=== PATIENT | female | born 1955 | race Caucasian/White ===

== ENCOUNTER 2021-08-14 14:59 | Emergency (ER) | payer MEDICARE, SELFPAY ==
[2021-08-14 15:00] VITALS: BP 135/78; PULSE 69; RESP 16; TEMP 35.9; O2SAT 95; BMI 18.1
--- NOTE | 2021-08-14 15:41 | ED.VIS.GI ---
HPI HPI - GI History of Present Illness Chief Complaint: Foreign Body Informant: patient Abdominal Pain/Flank Pain Onset: Days (5) Context: Sudden Onset Timing: Continuous Quality: Dull Location: - (Throat) Worsened by: - (Swallowing) Relieved by: Nothing Nausea/Vomiting/Emesis GI Symptom: Negative for Nausea and Vomiting Diarrhea/Melena/Hematochezia GI Symptom: Negative for Diarrhea, Melena and Hematochezia Associated Symptoms Associated Symptoms: Negative for Dysuria, Frequency, Hematuria and Urgency Narrative Narrative: Patient presents with foreign body sensation in her throat that has been constant for the past 5 days. Patient thinks it is a fishbone. Patient states she was eating fish when she felt pain in her throat. Patient states she has been able to eat and drink since this happened. Patient denies any shortness of breath. Patient states her pain is worse with swallowing. Patient denies any nausea or vomiting. Patient denies any diarrhea, melena, or hematochezia. Patient denies any urinary complaints. Patient denies any chest pain. [facility] Medical History (Updated 08/14/21 @ 17:[address] Ronak Dobbs DO) GERD (gastroesophageal reflux disease) Medical History no medical history Home Medications lidocaine HCl [Lidocaine Viscous] 15 ml MUCOUS MEMBRANE Q6H PRN #100 ml 08/14/21 [Rx Last Taken Unknown] sucralfate [Carafate] 10 ml PO BID PRN #200 ml 08/14/21 [Rx Last Taken Unknown] Allergy/AdvReac Type Severity Reaction Status Date / Time No Known Allergies Allergy Verified 08/14/21 15:22 Social History Smoking Status: Unknown if ever smoked ROS ROS ED Constitutional Constitutional ED: Denies chills or fever(s) Eyes Eyes: Denies blurry vision or change in vision ENT ENT ED: Reports sore throat; Denies rhinorrhea Cardiovascular Cardiovascular: Denies chest pain or palpitations Respiratory/Chest Respiratory/Chest: Denies cough or dyspnea Gastrointestinal Gastrointestinal: Denies nausea or vomiting Genitourinary Genitourinary ED: Denies dysuria or hematuria Musculoskeletal Musculoskeletal: Reports neck pain; Denies back pain Integumentary Denies abscess or rash Neurologic Neurologic: Denies headache(s) or weakness Allergic/Immunologic Allergic/Immunologic ED: Denies mouth swelling or urticaria EXAM Physical Exam Const Vital Signs: 08/14/21 15:00 08/14/21 15:19 Temperature 96.6 F L Temperature Source Temporal Pulse Rate 69 Respiratory Rate 16 Respiratory Effort Normal Non-Labored Respiratory Pattern Normal Blood Pressure 135/78 H Blood Pressure Mean 97 Pulse Ox 95 Oxygen Delivery Method Room Air Positive well nourished and well developed General Appearance ED: well developed HEENT Reports moist mucous membranes HEENT Narrative: Oropharynx is clear. Airway is patent. I do not visualize any foreign bodies. Neck supple and no JVD Resp normal respiratory effort and clear to auscultation bilaterally Cardio regular rate, regular rhythm and no murmurs GI normal to inspection, nondistended, normoactive bowel sounds and non-tender Palpation: soft Extremity normal to inspection General Extremety ED: Negative for edema or tenderness General Extremity: Negative for edema Neuro oriented x3, CN's II-XII intact bilaterally and no sensory deficits noted Sensorium / Orientation: alert Motor Exam: strength 5/5 throughout Psych mental status grossly normal Skin no rashes or lesions noted MDM MDM MDM Narrative Medical decision making narrative: X-rays of the soft tissue neck were obtained. There are 2 views. On my interpretation, there is no foreign body. There is no perforation noted. There is no soft tissue swelling noted. Radiologist also interpreted the x-rays and agrees. Case was discussed with Dr. Mercado from gastroenterology. Since the patient is able to swallow foods and liquids, he does not feel she needs emergent endoscopy. He recommended giving the patient prescriptions for Carafate and viscous lidocaine. He recommended mixing these together and taking them every 6 hours as needed. He will follow-up with the patient as an outpatient. Patient was given his contact information to schedule outpatient follow-up. Patient was also instructed to follow-up with her primary care physician. Patient and family understood and were agreeable with the plan. All questions were answered. Radiography Diagnostic Testing: Clinical Impression(s) from Imaging Studies Soft Tissue Neck X-Ray 08/14/21 16:45 IMPRESSION: Unremarkable study. at 1700 Reported and signed by: Farrukh Mckeon MD Electronically Signed: Farrukh Mckeon MD at 16:59 EST Tel , Service support , Discharge Plan Triage Chief Complaint: Foreign Body ED Provider: Ronak Dobbs Dx/Rx/DC Orders Clinical Impression: Foreign body sensation in throat Instructions: ED Pharyngeal Abrasion Prescriptions: New lidocaine HCl [Lidocaine Viscous] 2 % solution 15 ml mucous membrane Q6H PRN (Reason: pain) Qty: 100 RF: 0 sucralfate [Carafate] 100 mg/mL suspension 10 ml PO BID PRN (Reason: Throat pain) Qty: 200 RF: 0 Primary Care Provider: Dashawn Weber Referrals: Friend,DO Levi [STAFF PHYSICIAN] - 3-5 Days Dashawn Weber [Primary Care Provider] - Activity Restrictions/Additional Instructions: You may mix the lidocaine with the Carafate and take twice daily. You may also use the lidocaine by itself in between doses of the Carafate every 6 hours Disposition Disposition: Home, Self Care
--- NOTE | 2021-08-14 16:45 | RAD_ITS ---
HISTORY: Foreign body sensation EXAMINATION/TECHNIQUE: XR Neck Soft Tissue: 2 views COMPARISON: None FINDINGS: SOFT TISSUES: Unremarkable. No radiopaque foreign body. EPIGLOTTIS: No pathologic thickening or enlargement. PROXIMAL AIRWAY: Grossly patent. RAD/Neck for Soft Tissue IMPRESSION: Unremarkable study. at 1700 Reported and signed by: Farrukh Mckeon MD Electronically Signed: Farrukh Mckeon MD at 16:59 EST Tel , Service support ,
[2021-08-14] MEDS: Mag Hydrox/Al Hydrox/Simeth 30 ML UDC PO (17:31)
== END 2021-08-14 17:33 | disposition home or self-care (01) ==
PROVIDERS: Emergency Provider Emergency Medicine; PCP Family Medicine; Visit Provider Emergency Medicine
DX: R09.89 Other specified symptoms and signs involving the circulatory and respiratory systems (principal); K21.9 Gastro-esophageal reflux disease without esophagitis
CPT/HCPCS: 70360; 99283

== ENCOUNTER 2022-11-12 11:46 | Emergency (ER) | payer MEDICARE, SELFPAY ==
[2022-11-12 12:03] VITALS: BP 116/69; PULSE 67; RESP 18; TEMP 36.3; O2SAT 94
[2022-11-12 12:35] LABS: Absolute Lymphocyte Count 0.41 X10^3/uL (0.83-4.51); Absolute Neutrophil Count 6.1 X10^3/uL (2.0-7.7); Basophil# 0.01 X10^3/uL; Basophil% 0.1 % (0-1); Hematocrit 42.5 % (37-47); Hemoglobin 14.1 g/dL (12.0-15.0); Lymphocyte # 0.41 X10^3/ul (0.83-4.51); Lymphocyte % 6.1 % (19-41); Mean Corp Hgb Conc 33.2 g/dL (32-36); Mean Corpuscular Hgb 31.2 pg (27.0-32.0); Mean Platelet Vol. 9.1 fl (6.2-12.0); Monocyte# 0.16 X10^3/uL; Monocyte% 2.4 % (0-10); NRBC Flagged by Analyzer 0 % (0-5); Neutrophil # 6.08 X10^3/uL (2.7-7.7); Neutrophil % 90.8 % (47-70); POSITIVE DIFFERENTIAL YES; Platelet Count 216 K/mm3 (150-450); RBC Distribution Width CV 13.3 % (11.6-14.6); RBC Distribution Width SD 46.1 fl (35.1-43.9); Red Blood Count 4.52 M/mm3 (4.2-5.4); White Blood Count 6.7 K/mm3 (4.4-11.0)
[2022-11-12 12:38] LABS: Differential Indicated SCAN CRITERIA MET
[2022-11-12 12:59] LABS: Differential Comment SCANNED
[2022-11-12 13:01] LABS: ALB/GLOB Ratio 1.3 RATIO (0.9-2.4); AST(SGOT) 24 U/L (15-37); Alanine Aminotransfer ALT/SGPT 26 U/L (13-56); Albumin, Serum 4.1 g/dL (3.2-5.0); Alkaline Phosphatase 71 U/L (45-117); Anion Gap 1 (5-15); BUN 16 mg/dL (7-18); Calcium,Total 9.3 mg/dL (8.5-10.1); Chloride 106 mmol/L (98-107); Creatinine, Serum 0.67 mg/dL (0.55-1.02); EST Glomerular Filtration Rate 94 mL/min (>60); Est Glom Filt Rate - Afr Amer 114 mL/min (>60); Globulin 3.1 g/dL (2.2-4.2); Glucose 138 mg/dL (74-106); Potassium 4.1 mmol/L (3.5-5.1); Protein, Total 7.2 g/dL (6.4-8.2); Sodium Level 137 mmol/L (136-145)
[2022-11-12 13:18] VITALS: BMI 16.6
--- NOTE | 2022-11-12 13:31 | CT_ITS ---
STUDY: CT ABDOMEN AND PELVIS WITH CONTRAST REASON FOR EXAM: Female, 67 years old. Abdominal pain with nausea and vomiting. RADIATION DOSAGE (If Supplied By Facility): CTDIvol = ( 8.93 ) mGy, DLP = ( 190.50 ) mGycm TECHNIQUE: Transaxial images were obtained from the dome of the diaphragm to the symphysis pubis without oral contrast. IV 100mL Isovue-300 was administered. Sagittal and coronal images were reconstructed. Individualized dose optimization techniques were used for this CT. COMPARISON: None. FINDINGS: The visualized lung bases are unremarkable. Levoscoliosis of the thoracic spine. The visualized portions of the heart are within normal limits. Normal liver. Questionable multiple tiny layering gallstones along the dependent portion of the gallbladder. There is an 8.4 mm x 8.2 mm cyst in the posterior superior aspect of the spleen. Normal pancreas. There is a small, circumscribed, smooth, low attenuation left adrenal mass, consistent with an adrenal adenoma. This measures 1 cm. Normal right adrenal gland. Normal right kidney. Normal left kidney. Normal visualized stomach. Normal small intestine. Normal colon. The appendix is visualized and appears normal. There is diffuse atherosclerotic calcification of the abdominal aorta, without a demonstrated aneurysm. Normal inferior vena cava. Normal retroperitoneum. Normal urinary bladder. Normal abdominal wall. There are diffuse degenerative changes of the visualized lumbar spine. Dextroscoliosis. CT/Abdomen/Pelvis W IV Cont ONLY IMPRESSION: Questionable tiny gallstones along the dependent portion of the gallbladder lumen. Small cyst is seen in the posterior superior aspect of the spleen. Levoscoliosis of the thoracic spine and dextroscoliosis of the lumbar spine. Electronically Signed: Reynold Weller MD at 14:29 EDT ,
--- NOTE | 2022-11-12 13:32 | EDS_ITS ---
HPI HPI - GI History of Present Illness Chief Complaint: Abd Pain Narrative Narrative: 67-year-old female past medical history of chronic abdominal pain. She states she has had problems with nausea and vomiting and abdominal pain for years. She saw a vice president network development remotely but states she never had a diagnosis. She presents because this morning she began having nausea and vomiting, but more dry heaving because she states that there was nothing in there. She denies any problems with bowel movements, no diarrhea or constipation. No fevers or chills. No hematemesis. She denies any dysuria or hematuria but states that she has pain diffusely throughout her abdomen and points to her cervical along her colon. She had called the squad today and she had received something for nausea which has improved her symptoms. She states there has been times where she stayed home with her abdominal pain and it resolved or she is come to the emergency department and did not have a formal diagnosis. [facility] Medical History GERD (gastroesophageal reflux disease) Home Medications lidocaine HCl 2 % mucosal solution (Lidocaine Viscous) 15 ml mucous membrane Q6H PRN pain #100 mL 08/14/21 [Rx Last Taken Unknown] sucralfate 100 mg/mL oral suspension (Carafate) 10 ml PO BID PRN Throat pain #200 mL 08/14/21 [Rx Last Taken Unknown] dicyclomine 20 mg tablet 20 mg PO TID PRN abdominal pain #21 tabs 11/12/22 [Rx Last Taken Unknown] ondansetron 4 mg disintegrating tablet 4 mg PO Q6H PRN nausea and vomiting #20 tabs 11/12/22 [Rx Last Taken Unknown] Allergy/AdvReac Type Severity Reaction Status Date / Time codeine AdvReac Nausea Verified 11/12/22 12:06 Social History Smoking Status: Unknown if ever smoked ROS ROS ED ROS Narrative Constitutional: No fever, no chills. HEENT: No sore throat. No neck pain. No loss of vision. No rhinorrhea. Cardiovascular: No chest pain. No palpitations. No pedal edema. Respiratory: No cough, no shortness of breath. Abdominal: Diffuse abdominal pain. Positive nausea and vomiting/dry heaves Genitourinary: No dysuria. No hematuria. Musculoskeletal: No myalgias. No arthralgias. Neurologic: No headaches. No dizziness. No lightheadedness. Skin: No rash. No change in color. Psychiatric: No depression. No anxiety. EXAM Physical Exam Narrative Exam Narrative: Afebrile. Vital signs noted. HEENT: Normocephalic. Atraumatic. PERRL, EOMI. Neck soft and supple. No point tenderness or step off. Cardiovascular: Regular rate and rhythm. No murmurs, rubs, or gallops appreciated. Respiratory: No tachypnea. Lungs clear to auscultation bilaterally. Gastrointestinal: Abdomen soft, minimal diffuse tenderness to palpation with normoactive bowel sounds. No rebound or guarding. Neurological: Awake. Alert. Nonfocal, nonlateralizing. Skin: No rash. Normal color. No pallor. Musculoskeletal: No pedal edema. Full range of motion extremities. Const Vital Signs: 11/12/22 12:03 Temperature 97.3 F L Temperature Source Temporal Pulse Rate 67 Respiratory Rate 18 Blood Pressure 116/69 Blood Pressure Mean 84 Pulse Ox 94 MDM MDM MDM Narrative Medical decision making narrative: In the differential diagnosis is bowel obstruction versus nonspecific abdominal pain versus exacerbation of chronic abdominal pain versus pancreatitis. I have lower suspicion for obstruction or colitis as she is not having any problems with bowel movements. RN ordered protocol laboratory work which I reviewed. CBC shows normal white count of 6.7, hemoglobin normal at 14.1, hematocrit 42.5, platelet count normal at 216. In review of her CMP, she has normal AST and ALT and normal alk phos, glucose appropriately elevated at 138 with a normal anion gap/low at 1. There is no evidence of dehydration as she has a normal sodium of 137, potassium normal at 4.1, chloride normal at 106. BUN is normal at 16 with creatinine normal at 0.67. I will add a lipase and review it. I will image her abdomen with CT imaging to rule out obstruction or colitis. She declined any antinausea medication. In review of her lipase, it is normal at 41. I reviewed her prior records and she had a prior ED visit for foreign body sensation, but no significant work-ups for her abdominal pain. I reviewed her CT imaging and see no evidence of obstruction. I reviewed the radiology report which was also read as no acute process. She may have tiny gallstones in the lumen of the gallbladder, but no evidence of obstruction on her laboratory work. I do not feel that she has an acute cholecystitis, or choledocholithiasis causing pancreatitis. At this point in time, she may be having more nonspecific abdominal pain. I will write her prescription for Bentyl to take and for antinausea medication. I will refer her to gastroenterology for further work-up of her chronic abdominal pain that she may have irritable bowel syndrome. At this point in time, I do feel she can be discharged safely home with follow-up. Return instructions to the emergency department were reviewed. Disposition is discharged home in stable condition. History & Record Review Discussion w/independent historian: Patient and Family Additional record(s) reviewed:: Prior ED visit (Seen infrequently, last time for foreign body sensation in throat.) Lab Data Attestation: I reviewed the patient's lab results. Labs: Laboratory Results - last 24 hr 11/12/22 11/12/22 11/12/22 12:30 12:30 12:30 WBC 6.7 RBC 4.52 Hgb 14.1 Hct 42.5 MCV 94.0 MCH 31.2 MCHC 33.2 RDW Std Deviation 46.1 H RDW Coeff of Boaz 13.3 Plt Count 216 MPV 9.1 Immature Gran % (Auto) 0.600 Neut % (Auto) 90.8 H Lymph % (Auto) 6.1 L [place] % (Auto) 2.4 Eos % (Auto) 0.0 Baso % (Auto) 0.1 Absolute Neuts (auto) 6.1 Absolute Lymphs (auto) 0.41 L Nucleated RBC % 0 Differential Comment SCANNED Sodium 137 Potassium 4.1 Chloride 106 Carbon Dioxide 30.0 Anion Gap 1 L BUN 16 Creatinine 0.67 Est GFR (MDRD) Af Amer 114 Est GFR (MDRD) Non-Af 94 BUN/Creatinine Ratio 24.0 H Glucose 138 H Calcium 9.3 Total Bilirubin 1.10 H AST 24 ALT 26 Alkaline Phosphatase 71 Total Protein 7.2 Albumin 4.1 Globulin 3.1 Albumin/Globulin Ratio 1.3 Lipase 41 Urine Color Urine Clarity Urine pH Ur Specific [place] Urine Protein Urine Glucose (UA) Urine Ketones Urine Occult Blood Urine Nitrite Urine Bilirubin Urine Urobilinogen Ur Leukocyte Esterase Urine RBC Urine WBC Ur Squamous Epith Cells Urine Bacteria Urine Mucus 11/12/22 13:45 WBC RBC Hgb Hct MCV MCH MCHC RDW Std Deviation RDW Coeff of Boaz Plt Count MPV Immature Gran % (Auto) Neut % (Auto) Lymph % (Auto) [place] % (Auto) Eos % (Auto) Baso % (Auto) Absolute Neuts (auto) Absolute Lymphs (auto) Nucleated RBC % Differential Comment Sodium Potassium Chloride Carbon Dioxide Anion Gap BUN Creatinine Est GFR (MDRD) Af Amer Est GFR (MDRD) Non-Af BUN/Creatinine Ratio Glucose Calcium Total Bilirubin AST ALT Alkaline Phosphatase Total Protein Albumin Globulin Albumin/Globulin Ratio Lipase Urine Color Yellow Urine Clarity Clear Urine pH 6.5 Ur Specific [place] 1.015 Urine Protein 30 H Urine Glucose (UA) 50 H Urine Ketones 50 H Urine Occult Blood 50 H Urine Nitrite Negative Urine Bilirubin Negative Urine Urobilinogen Normal Ur Leukocyte Esterase Negative Urine RBC 0-5 SEEN Urine WBC 0 SEEN Ur Squamous Epith Cells 0 SEEN Urine Bacteria 0 SEEN Urine Mucus 0 SEEN Radiography Diagnostic Testing: Clinical Impression(s) from Imaging Studies Abdomen/Pelvis CT 11/12/22 13:31 IMPRESSION: Questionable tiny gallstones along the dependent portion of the gallbladder lumen. Small cyst is seen in the posterior superior aspect of the spleen. Levoscoliosis of the thoracic spine and dextroscoliosis of the lumbar spine. Electronically Signed: Reynold Weller MD at 14:29 EDT , Discharge Plan Triage Chief Complaint: Abd Pain ED Provider: Pradip Tobar Dx/Rx/DC Orders Clinical Impression: Abdominal pain, Nausea and vomiting Instructions: ED Abdominal Pain Unkn Cause Fem, ED Vomiting (Adult) Prescriptions: New dicyclomine 20 mg tablet 20 mg PO TID PRN (Reason: abdominal pain) Qty: 21 0RF ondansetron 4 mg tablet,disintegrating 4 mg PO Q6H PRN (Reason: nausea and vomiting) Qty: 20 0RF No Action lidocaine HCl [Lidocaine Viscous] 2 % solution 15 ml mucous membrane Q6H PRN (Reason: pain) Qty: 100 0RF sucralfate [Carafate] 100 mg/mL suspension 10 ml PO BID PRN (Reason: Throat pain) Qty: 200 0RF Primary Care Provider: Dashawn Weber Referrals: Friend,Levi, DO [Med Staff - Active Staff] - As soon as possible Dashawn Weber [[facility]] - As soon as possible Activity Restrictions/Additional Instructions: You had negative work-up for your abdominal pain, nausea and vomiting today. Take the medications prescribed as directed as needed. Follow-up with [facility] as soon as possible. Disposition Disposition: Home, Self Care
[2022-11-12] MEDS: 0.9% Normal Saline 1,000 ML 999 ML IV (13:44)
[2022-11-12 13:49] LABS: Bacteria 0 SEEN /hpf (None Seen); Mucous, Urine 0 SEEN /hpf (<or=2+); Squamous Epithelial Cells - UA 0 SEEN /hpf (5-10); White Blood Cells 0 SEEN /hpf (0-5)
[2022-11-12 13:50] LABS: Color, Urine Yellow (Yellow); Glucose, Dipstick 50 mg/dl (Normal); Ketone-Dipstick 50 mg/dl (Negative); Leukocyte Esterase-Dipstick Negative /ul (Negative); Nitrite-Dipstick Negative (Negative); Occult Blood-Urine 50 /ul (Negative); Protein-Dipstick 30 mg/dl (Negative); Specific Gravity, Urine 1.015 (1.002-1.030); Urine Bilirubin Dipstick Negative (Negative); Urine Clarity Clear (Clear); Urine Urobilinogen Normal (Normal); Urine pH 6.5 (5.0 - 8.0)
[2022-11-12 13:56] LABS: Red Blood Cells-Urine 0-5 SEEN /hpf (0-5)
[2022-11-12 14:17] LABS: Lipase 41 U/L (13-75)
== END 2022-11-12 15:02 | disposition home or self-care (01) ==
PROVIDERS: Emergency Provider Emergency Medicine; PCP Family Medicine; Visit Provider Emergency Medicine
DX: R10.9 Unspecified abdominal pain (principal); G89.29 Other chronic pain; R11.2 Nausea with vomiting, unspecified
CPT/HCPCS: 74177; 80053; 81001; 83690; 85025; 96360; 99285; J7030; Q9967

== ENCOUNTER → 2022-12-11 | Outpatient (CLI) | payer MEDICARE, SELFPAY ==
[2022-12-11 12:33] LABS: Erythrocyte Sedimentation Rate 4 mm/hr (0-30)
[2022-12-11 12:40] LABS: Absolute Lymphocyte Count 1.88 X10^3/uL (0.83-4.51); Absolute Neutrophil Count 2.8 X10^3/uL (2.0-7.7); Basophil# 0.02 X10^3/uL; Basophil% 0.4 % (0-1); Eosinophil# 0.05 X10^3/uL; Hematocrit 41.1 % (37-47); Hemoglobin 13.4 g/dL (12.0-15.0); Lymphocyte # 1.88 X10^3/ul (0.83-4.51); Lymphocyte % 36.5 % (19-41); Mean Corp Hgb Conc 32.6 g/dL (32-36); Mean Corpuscular Hgb 31.7 pg (27.0-32.0); Mean Corpuscular Volume 97.2 fL (81-99); Mean Platelet Vol. 9.7 fl (6.2-12.0); Monocyte# 0.42 X10^3/uL; Monocyte% 8.2 % (0-10); NRBC Flagged by Analyzer 0 % (0-5); Neutrophil # 2.77 X10^3/uL (2.7-7.7); Neutrophil % 53.7 % (47-70); Platelet Count 221 K/mm3 (150-450); RBC Distribution Width CV 13.8 % (11.6-14.6); Red Blood Count 4.23 M/mm3 (4.2-5.4); White Blood Count 5.2 K/mm3 (4.4-11.0)
[2022-12-11 13:11] LABS: ALB/GLOB Ratio 1.2 RATIO (0.9-2.4); AST(SGOT) 23 U/L (15-37); Alanine Aminotransfer ALT/SGPT 26 U/L (13-56); Alkaline Phosphatase 68 U/L (45-117); Anion Gap 3 (5-15); BUN 14 mg/dL (7-18); BUN/Creat Ratio 18.3 RATIO (10-20); Bilirubin, Direct 0.23 mg/dL (0.00-0.30); CRP < 2.90 mg/L (0.0-3.0); Calcium,Total 8.8 mg/dL (8.5-10.1); Chloride 108 mmol/L (98-107); Creatinine, Serum 0.77 mg/dL (0.55-1.02); EST Glomerular Filtration Rate 80 mL/min (>60); Est Glom Filt Rate - Afr Amer 97 mL/min (>60); Globulin 3.3 g/dL (2.2-4.2); Glucose 69 mg/dL (74-106); LDH 147 U/L (84-246); Potassium 3.8 mmol/L (3.5-5.1); Protein, Total 7.3 g/dL (6.4-8.2); Sodium Level 140 mmol/L (136-145)
[2022-12-12 15:09] LABS: Anti-Centromere B Ab <0.2 AI (0.0-0.9); Anti-Chromatin <0.2 AI (0.0-0.9); Anti-Jo <0.2 AI (0.0-0.9); Anti-Mitochondrial AB <20.0 Units (0.0-20.0); Anti-Scleroderma-70 AB <0.2 AI (0.0-0.9); Anti-dsDNA Ab <1 IU/mL (0-9); RNP Ab 1.3 AI (0.0-0.9); SJOGREN'S Anti-SS-A test < 0.2 AI (0.0-0.9); SJOGREN'S Anti-SS-B test < 0.2 AI (0.0-0.9); Smith Ab <0.2 AI (0.0-0.9)
[2022-12-12 16:09] LABS: Anti-Smooth Muscle ABS 5 Units (0-19); Cytoplasmic Ab (C-ANCA) <1:20 titer (Neg:<1:20); Endomysial Antibody IgA Negative (Negative); Immunoglobulin A 85 mg/dL (87-352); Perinuclear Ab (P-ANCA) <1:20 titer (Neg:<1:20); t-Transglutaminase IgA <2 U/mL (0-3)
== END | disposition home or self-care (01) ==
LOC: LAB 11:33
PROVIDERS: PCP Family Medicine; Referring Provider Nurse Practitioner Adult Health; Visit Provider Nurse Practitioner Adult Health
DX: R10.10 Upper abdominal pain, unspecified (principal); R63.4 Abnormal weight loss; R19.7 Diarrhea, unspecified
CPT/HCPCS: 36415; 80053; 82248; 82784; 83516; 83615; 84443; 85025; 85652; 86140; 86225; 86235; 86255; 86256

== ENCOUNTER → 2022-12-19 | Outpatient (CLI) | payer MEDICARE, SELFPAY ==
--- NOTE | 2022-12-19 08:58 | US_ITS ---
STUDY: ABDOMINAL ULTRASOUND - RIGHT UPPER QUADRANT REASON FOR VISIT: Female, 67 years old upper abd pain -- RUQ TECHNIQUE: Ultrasound evaluation of the right upper quadrant was performed with real-time and static paulino-scale imaging. TECHNICAL QUALITY: Adequate. COMPARISON: None. FINDINGS: Liver: The liver measures 14.9 cm. There is normal echogenicity of the liver. The bile ducts are within normal limits. There is hepatic color flow. The direction of portal flow is hepatopetal. There is no demonstrated mass lesion. Gallbladder: Normal distended gallbladder. The gallbladder wall measures 2 mm. There is a negative sonographic Talavera''s sign. There is no pericholecystic fluid. There are no gallstones. Common Bile Duct (C.B.D.): The common bile duct measures 2 mm. Pancreas: Normal size of the head, body and tail of the pancreas. There is normal echogenicity of the pancreas. There is no demonstrated pancreatic mass or cyst. Right Kidney: Normal size of the right kidney. The right kidney measures [0.6 x 4.3 x 3.6 cm. Normal renal cortex. The right cortex measures 1 cm. There is no demonstrated renal mass or cyst. There is no right hydronephrosis. US/Abdomen Limited IMPRESSION: Normal right upper quadrant ultrasound examination. Electronically Signed: Hans Staton MD at 20:51 EDT ,
[2022-12-24 15:08] LABS: Pancreatic Elastase, Fecal 144 (>200)
[2022-12-25 02:07] LABS: IgG, Quant 961 mg/dL (586-1602); Immunoglobulin A 79 mg/dL (87-352); Immunoglobulin E 5 IU/mL (6-495); Immunoglobulin G, Subclass 1 663 mg/dL (248-810); Immunoglobulin G, Subclass 2 156 mg/dL (130-555); Immunoglobulin G, Subclass 3 59 mg/dL (15-102); Immunoglobulin G, Subclass 4 1 mg/dL (2-96); Immunoglobulin M 157 mg/dL (26-217)
[2022-12-25 18:14] LABS: Immunoglobulin G 961
[2023-01-02 16:09] LABS: Calprotectin, Stool 9 ug/g (0-120); Fats, Neutral Normal (.); Fats, Total Normal (.)
== END | disposition home or self-care (01) ==
PROVIDERS: PCP Family Medicine; Referring Provider Nurse Practitioner Adult Health; Visit Provider Nurse Practitioner Adult Health
DX: R19.7 Diarrhea, unspecified (principal); R63.4 Abnormal weight loss; R10.10 Upper abdominal pain, unspecified; K58.9 Irritable bowel syndrome, unspecified
CPT/HCPCS: 36415; 76705; 82653; 82705; 82784; 82785; 82787; 83516; 83630; 83993

== ENCOUNTER 2023-01-30 06:32 | Day surgery (SDC) | payer MEDICARE, SELFPAY ==
[2023-01-30] VITALS (7 sets, daily range): BP systolic 95–127; BP diastolic 65–101; PULSE 64–88; RESP 16–18; TEMP 36.2–36.8; O2SAT 98–100; BMI 16.5
--- NOTE | 2023-01-30 | COLBX_PTH ---
PATIENT: JASON FIELDS LOC: [facility] U#:[id number] AGE/SX: 67/F ROOM: RE01/30/[address]: Dr. Levi Mercado DO : [id number] BED: DIS: 01/30/2023 SPEC #: [id number] RECD: 01/30/23 13:14 STATUS: WISAM RUTH #: [id number] AMANDA: 01/30/23 00:[address]: Levi Mercado DEPT: SURGICAL PATHOLOGY RECD BY: Francis Carpenter ENTERED: 01/30/23 14:10 SP TYPE: COLON BX OTHR DR: Dr. Dashawn Weber MD Tissues: A - Duodenum, NOS B - Esophagus, NOS C - COLON BIOPSY D - Cecum, NOS E - Ascending colon F - COLON BIOPSY G - Sigmoid colon biopsy Procedures: Special Stain Group II Surgery Specimen Level IV Alcian Blue/PAS (control) HEADER OPERATION: Colonoscopy, EGD ([facility] [place]) PRE-OP DIAGNOSIS: Abdominal pain TISSUE SUBMITTED: A - Duodenum biopsy, B - Distal esophagus biopsy, C - Hepatic flexure polyp biopsy, D - Cecum biopsy, E - Ascending colon polyp biopsy, F - Random colon biopsy, G - Sigmoid colon polyp biopsy MICROSCOPIC DIAGNOSIS A. Duodenum, biopsy: No pathologic change. B. Distal esophagus, biopsy: Gastroesophageal junctional mucosa with mild chronic inflammation. No evidence of goblet cell metaplasia. See comment. C. Colonic polyp at hepatic flexure, biopsy: Tubular adenoma. D. Cecum, biopsy: No pathologic change. E. Ascending colon polyp, biopsy: Fragments of tubular adenoma. F. Colon, random biopsy: No pathologic change. G. Sigmoid colon polyp, biopsy: Polypoid fragment of benign colonic mucosa. See comment. AM:caleb 01/31/2023 COMMENT B. Alcian blue/PAS stain with matched control supports the above diagnosis. G. Neither hyperplastic nor adenomatous change is identified. Clinical correlation is suggested. MICROSCOPIC DESCRIPTION Slides are reviewed. GROSS DESCRIPTION A - Received in fixative is one container labeled with the patient's name and designated duodenum biopsy. The specimen consists of two irregular fragments of light cohen soft tissue that in aggregate measure 1.0 x 0.5 x 0.1 cm. The specimen is totally submitted in one cassette. B - Received in fixative is one container labeled with the patient's name and designated distal esophagus. The specimen consists of two irregular fragments of light cohen soft tissue that in aggregate measure 0.6 x 0.3 x 0.1 cm. The specimen is totally submitted in one cassette. C - Received in fixative is one container labeled with the patient's name and designated hepatic flexure polyp biopsy. The specimen consists of one irregular fragment of light cohen soft tissue that measures 0.4 x 0.3 x 0.1 cm. The specimen is totally submitted in one cassette. D - Received in fixative is one container labeled with the patient's name and designated cecum biopsy. The specimen consists of two irregular fragments of light cohen soft tissue that in aggregate measure 0.6 x 0.3 x 0.1 cm. The specimen is totally submitted in one cassette. E - Received in fixative is one container labeled with the patient's name and designated ascending colon polyp biopsy. The specimen consists of multiple irregular fragments of light cohen soft tissue that in aggregate measure 1.5 x 0.5 x 0.1 cm. The specimen is totally submitted in one cassette. F - Received in fixative is one container labeled with the patient's name and designated random colon biopsy. The specimen consists of multiple irregular fragments of light cohen soft tissue that in aggregate measure 1.0 x 0.7 x 0.1 cm. The specimen is totally submitted in one cassette. G - Received in fixative is one container labeled with the patient's name and designated sigmoid colon polyp biopsy. The specimen consists of one irregular fragment of light cohen soft tissue that measures 0.4 x 0.1 x 0.1 cm. The specimen is totally submitted in one cassette. / SJ:rg 01/30/2023 TC:3 CPT: 54578 x7, [id number]
[2023-01-30] MEDS: Lactated Ringers 1,000 ML 15 ML IV (07:13)
--- NOTE | 2023-01-30 07:37 | HP.PCM_ITS ---
History and Physical Date of Admission: 01/30/23 abdominal pain Details: JASON FIELDS, is a 67 F who presents to the office today for sporadic episodes of upper abdominal/periumbilical pain since 2002. Has occurred twice this year. Can last a few hours or a day. Most recent episode was 11/12/22, brought by squad to [facility] ED. Lipase was normal, bili 1.10 otherwise unremarkable CMP, CBC unremarkable, CT showed tiny gallstones. Can have associated nausea and vomiting, pain doesn't radiate. Has been to ED several times over the years. Can be better with heating pad. Intermittent urgent diarrhea, not assoc with the abd pain, thinks once or twice this year. Diarrhea lasted for a month in 04/2022. Currently having soft stools. No melena or hematochezia. Hasn't taken pantoprazole since ED visit, no heartburn. Has only taken ibuprofen twice since then. Can have difficulty swallowing certain foods, especially apples, melon, carrots. Unexplained weight loss over the past 4 yrs, BMI is now 16.5. She attributes the weight loss to several things: decreased sense of taste and smell, poor dentition so she had teeth pulled and had to get used to dentures, and her is approx 400 lbs so she wonders if psychologically this has caused her to eat less as he eats more. No prior EGD that she recalls Hx colon polyps, last colonoscopy approx 202011/12/22 CT/Abdomen/Pelvis W IV Cont ONLY IMPRESSION: Questionable tiny gallstones along the dependent portion of the gallbladder lumen. Small cyst is seen in the posterior superior aspect of the spleen. Levoscoliosis of the thoracic spine and dextroscoliosis of the lumbar spine. ROS Const Constitutional: Positive for headache(s) and weight change; No fatigue ENT ENT: Positive for headache(s); No difficulty swallowing Gastro GI: No abdominal pain, belching, bloating, change in bowel habits, change in stool character, coffee ground emesis, constipation, cramping, diarrhea, heartburn, difficulty swallowing, feeling full early, excessive flatus, incontinent of stools, Vomiting blood/hematemesis, Blood in stool, loose stools, Black,tarry stools, nausea/dyspepsia, pain with swallowing, vomiting or other Musc Musculoskeletal: Positive for back pain; No joint pain Skin Skin: No yellowing of the eye or itchy eyes Neuro Neurology: Positive for headache(s) Psych Psychiatric: No anxiety and No depression Endo Endocrine: Positive for weight change; No fatigue Aller/Imm Allergy/Immunologic: No itchy eyes Cody/Lymp Hematologic/Lymphatic: No easy bleeding or easy bruising Exam Const General: cooperative and comfortable Nutritional Appearance: thin Orientation: alert, awake and oriented x3 HENMT Head: normal to inspection Eyes Sclera: sclerae normal Resp Effort & Inspection: normal respiratory effort GI Inspection: normal to inspection Palpation: soft, no hepatosplenomegaly, no masses and tender in the epigastrum and in the LUQ General: bladder normal to palpation Bimanual Exam- Vagina & Uterus: bladder normal to palpation Skin General: no rashes or lesions noted Neuro Speech: speech normal Gait: normal gait Psych Mood: euthymic mood Quality Reporting Tobacco Screening ([facility] 138) Smoking Status: Unknown if ever smoked Assessment and Plan Assessment and Plan (1) Upper abdominal pain: Status: Chronic Plan: 67 yr old female with 20-yr-hx of episodes of upper abd/periumbilical pain, assoc w/ nausea and vomiting. She has unrelated occas diarrhea, not frequent. As well as unexplained weight loss, now underweight. Slightly elevated bilirubin--may be Gilbert's--during last episode but normal liver enzymes and lipase. CT showed possible tiny gallstones. DDx includes transient obstructive choledocholithiasis, biliary dyskinesia, pancreatitis, SOD Labs today RUQ US, may need HIDA EGD w/ office f/u 2 wks later (2) Unexplained weight loss: Status: Chronic Plan: as above (3) Diarrhea: Status: Acute Plan: as above Orders: Orders Bilirubin, Direct Today R10.10 - Upper abdominal pain, unspecified, R19.7 - Diarrhea, unspecified, R63.4 - Abnormal weight loss Comprehensive Metabolic Profil Today R10.10 - Upper abdominal pain, unspecified, R19.7 - Diarrhea, unspecified, R63.4 - Abnormal weight loss CRP Today R10.10 - Upper abdominal pain, unspecified, R19.7 - Diarrhea, unspeci fied, R63.4 - Abnormal weight loss Erythrocyte Sed Rate Today R10.10 - Upper abdominal pain, unspecified, R19.7 - Diarrhea, unspecified, R63.4 - Abnormal weight loss Anti-Mitochondrial AB Today R10.10 - Upper abdominal pain, unspecified, R19.7 - Diarrhea, unspecified, R63.4 - Abnormal weight loss Anti-Smooth Muscle ABS Today R10.10 - Upper abdominal pain, unspecified, R19.7 - Diarrhea, unspecified, R63.4 - Abnormal weight loss CBC W/Diff, Automated Today R10.10 - Upper abdominal pain, unspecified, R19.7 - Diarrhea, unspecified, R63.4 - Abnormal weight loss LDH Today R10.10 - Upper abdominal pain, unspecified, R19.7 - Diarrhea, unspecified, R63.4 - Abnormal weight loss MILLIE Comprehensive Panel Today R10.10 - Upper abdominal pain, unspecified, R19.7 - Diarrhea, unspecified, R63.4 - Abnormal weight loss ANCA Today R10.10 - Upper abdominal pain, unspecified, R19.7 - Diarrhea, unspecified, R63.4 - Abnormal weight loss Celiac Disease Profile Today R10.10 - Upper abdominal pain, unspecified, R19.7 - Diarrhea, unspecified, R63.4 - Abnormal weight loss Abdomen Limited Today R10.10 - Upper abdominal pain, unspecified, R19.7 - Diarrhea, unspecified, R63.4 - Abnormal weight loss Thyroid Stim Hormone (TSH) Today R10.10 - Upper abdominal pain, unspecified, R19.7 - Diarrhea, unspecified, R63.4 - Abnormal weight loss I have examined the patient and the H&P has been reviewed. There are no clinical changes since date of exam.
--- NOTE | 2023-01-30 08:24 | OP.CCLET_ITS ---
01/30/2023 Dashawn Weber Md Re : Upper GI endoscopy procedure for Claribel Palumbor Gus This procedure was performed on January. My impressions and recommendations are as follows: Impressions : - LA Grade A reflux esophagitis. Biopsied. - Small hiatal hernia. - Chronic duodenitis. Biopsied. Recommendations : - Discharge patient to home. - Resume previous diet. - Continue present medications. - Await pathology results. My findings are described in the full procedure note, which is enclosed. If I can be of further assistance, please feel free to contact me at . Sincerely, Levi Mercado, 01/30/2023 8:23:39 AM This report has been signed electronically.
--- NOTE | 2023-01-30 08:24 | OP.EGD_ITS ---
Patient Name: Claribel Lomeli Procedure Date: 01/30/2023 7:38 AM Date of : 1955 Age: 67 Procedure: Upper GI endoscopy Indications: Generalized abdominal pain Providers: Levi Mercado DO Referring MD: Levi Mercado DO Medicines: Monitored Anesthesia Care Patient Profile: This is a 67 year old female. Refer to note in patient chart for documentation of history and physical. Patient has symptoms of chronic abdominal cramping, chronic abdominal distention and chronic global abdominal pain. Complications: No immediate complications. Procedure: Pre-Anesthesia Assessment: - Prior to the procedure, a History and Physical was performed, and patient medications and allergies were reviewed. The patient is competent. The risks and benefits of the procedure and the sedation options and risks were discussed with the patient. All questions were answered and informed consent was obtained. Patient identification and proposed procedure were verified by the physician in the pre-procedure area. Mental Status Examination: alert and oriented. Airway Examination: normal oropharyngeal airway and neck mobility. Respiratory Examination: clear to auscultation. CV Examination: normal. Prophylactic Antibiotics: The patient does not require prophylactic antibiotics. Prior Anticoagulants: The patient has taken no previous anticoagulant or antiplatelet agents. ASA Grade Assessment: II - A patient with mild systemic disease. After reviewing the risks and benefits, the patient was deemed in satisfactory condition to undergo the procedure. The anesthesia plan was to use monitored anesthesia care (MAC). Immediately prior to administration of medications, the patient was re-assessed for adequacy to receive sedatives. The heart rate, respiratory rate, oxygen saturations, blood pressure, adequacy of pulmonary ventilation, and response to care were monitored throughout the procedure. The physical status of the patient was re-assessed after the procedure. After obtaining informed consent, the endoscope was passed under direct vision. Throughout the procedure, the patient's blood pressure, pulse, and oxygen saturations were monitored continuously. The colonoscope was introduced through the mouth, and advanced to the second part of duodenum. The upper GI endoscopy was accomplished without difficulty. The patient tolerated the procedure well. Scope In: 7:47:54 AM Scope Out: 7:51:47 AM Total Procedure Duration Time 0 hours 3 minutes 53 seconds Findings: LA Grade A (one or more mucosal breaks less than 5 mm, not extending between tops of 2 mucosal folds) esophagitis with no bleeding was found 36 to 38 cm from the incisors. Biopsies were taken with a cold forceps for histology. Verification of patient identification for the specimen was done. Estimated blood loss was minimal. A small hiatal hernia was present. No other significant abnormalities were identified in a careful examination of the stomach. Scattered moderate inflammation characterized by congestion (edema), erosions and shallow ulcerations was found in the duodenal bulb. Biopsies were taken with a cold forceps for histology. Verification of patient identification for the specimen was done. Estimated blood loss was minimal. Impression: - LA Grade A reflux esophagitis. Biopsied. - Small hiatal hernia. - Chronic duodenitis. Biopsied. Recommendation: - Discharge patient to home. - Resume previous diet. - Continue present medications. - Await pathology results. Procedure Code(s): --- Professional --- 80527, Esophagogastroduodenoscopy, flexible, transoral; with biopsy, single or multiple CPT copyright 2017 [employer]. All rights reserved. The codes documented in this report are preliminary and upon log inspector review may be revised to meet current compliance requirements. Levi Mercado DO 01/30/2023 8:23:39 AM This report has been signed electronically. Number of Addenda: 0 Note Initiated On: 01/30/2023 7:38 AM
--- NOTE | 2023-01-30 08:28 | OP.CCLET_ITS ---
01/30/2023 Dashawn Weber Md Re : Colonoscopy procedure for Claribel Palumbor Gus This procedure was performed on January. My impressions and recommendations are as follows: Impressions : - Five 1 to 2 mm polyps in the sigmoid colon, at the hepatic flexure, in the ascending colon and in the cecum, removed with a cold snare. Resected and retrieved. - Congested mucosa in the recto-sigmoid colon, in the sigmoid colon and in the ascending colon. Biopsied. - Diverticulosis in the recto-sigmoid colon and in the sigmoid colon. - Stricture at the hepatic flexure. Recommendations : - Discharge patient to home. - Resume previous diet. - Continue present medications. - Await pathology results. - Repeat colonoscopy in 3 years for surveillance. My findings are described in the full procedure note, which is enclosed. If I can be of further assistance, please feel free to contact me at . Sincerely, Levi Mercado DO 01/30/2023 8:27:54 AM This report has been signed electronically.
--- NOTE | 2023-01-30 08:28 | OP.COLON_ITS ---
Patient Name: Claribel Lomeli Procedure Date: 01/30/2023 7:51 AM Date of : 1955 Age: 67 Procedure: Colonoscopy Indications: Screening for colorectal malignant neoplasm Providers: Levi Mercado DO Referring MD: Levi Mercado DO Medicines: Monitored Anesthesia Care Patient Profile: This is a 67 year old female. Refer to note in patient chart for documentation of history and physical. Patient has symptoms of chronic abdominal cramping, chronic abdominal distention and chronic global abdominal pain. Last Colonoscopy: none. The patient's first colonoscopy is today. Complications: No immediate complications. Procedure: Pre-Anesthesia Assessment: - Prior to the procedure, a History and Physical was performed, and patient medications and allergies were reviewed. The patient is competent. The risks and benefits of the procedure and the sedation options and risks were discussed with the patient. All questions were answered and informed consent was obtained. Patient identification and proposed procedure were verified by the physician in the pre-procedure area. Mental Status Examination: alert and oriented. Airway Examination: normal oropharyngeal airway and neck mobility. Respiratory Examination: clear to auscultation. CV Examination: normal. Prophylactic Antibiotics: The patient does not require prophylactic antibiotics. Prior Anticoagulants: The patient has taken no previous anticoagulant or antiplatelet agents. ASA Grade Assessment: II - A patient with mild systemic disease. After reviewing the risks and benefits, the patient was deemed in satisfactory condition to undergo the procedure. The anesthesia plan was to use monitored anesthesia care (MAC). Immediately prior to administration of medications, the patient was re-assessed for adequacy to receive sedatives. The heart rate, respiratory rate, oxygen saturations, blood pressure, adequacy of pulmonary ventilation, and response to care were monitored throughout the procedure. The physical status of the patient was re-assessed after the procedure. After I obtained informed consent, the scope was passed under direct vision. Throughout the procedure, the patient's blood pressure, pulse, and oxygen saturations were monitored continuously. The colonoscope was introduced through the anus and advanced to the terminal ileum. The colonoscopy was performed without difficulty. The patient tolerated the procedure well. The quality of the bowel preparation was good. Scope In: 7:53:34 AM Scope Withdrawal Time 0 hours 19 minutes 56 seconds Scope Out: 8:17:59 AM Total Procedure Duration Time 0 hours 24 minutes 25 seconds Findings: The perianal and digital rectal examinations were normal. Five sessile polyps were found in the sigmoid colon, hepatic flexure, ascending colon and cecum. The polyps were 1 to 2 mm in size. These polyps were removed with a cold snare. Resection and retrieval were complete. Verification of patient identification for the specimen was done. Estimated blood loss was minimal. An area of mildly congested mucosa was found in the recto-sigmoid colon, in the sigmoid colon and in the ascending colon. Biopsies were taken with a cold forceps for histology. Verification of patient identification for the specimen was done. Estimated blood loss was minimal. Multiple small and large-mouthed diverticula were found in the recto-sigmoid colon and sigmoid colon. A benign-appearing, intrinsic severe stenosis measuring 4 cm (in length) was found at the hepatic flexure and was traversed. Impression: - Five 1 to 2 mm polyps in the sigmoid colon, at the hepatic flexure, in the ascending colon and in the cecum, removed with a cold snare. Resected and retrieved. - Congested mucosa in the recto-sigmoid colon, in the sigmoid colon and in the ascending colon. Biopsied. - Diverticulosis in the recto-sigmoid colon and in the sigmoid colon. - Stricture at the hepatic flexure. Recommendation: - Discharge patient to home. - Resume previous diet. - Continue present medications. - Await pathology results. - Repeat colonoscopy in 3 years for surveillance. Procedure Code(s): --- Professional --- 54073, Colonoscopy, flexible; with removal of tumor(s), polyp(s), or other lesion(s) by snare technique 56891, 59, Colonoscopy, flexible; with biopsy, single or multiple CPT copyright 2017 [employer]. All rights reserved. The codes documented in this report are preliminary and upon collateral analyst review may be revised to meet current compliance requirements. Levi Mercado DO 01/30/2023 8:27:54 AM This report has been signed electronically. Number of Addenda: 0 Note Initiated On: 01/30/2023 7:51 AM
== END 2023-01-30 09:19 | disposition home or self-care (01) ==
LOC: EN 06:35 → AC 06:35
PROVIDERS: PCP Family Medicine; Referring Provider Family Medicine; Visit Provider Internal Medicine Gastroenterology
PROC: 0DJD8ZZ Inspection of Lower Intestinal Tract, Via Natural or Artificial Opening Endoscopic (ICD-10-PCS; CPT 45378; principal; 2023-01-30 07:40)
DX: Z12.11 Encounter for screening for malignant neoplasm of colon (principal); D12.2 Benign neoplasm of ascending colon; D12.3 Benign neoplasm of transverse colon; D12.5 Benign neoplasm of sigmoid colon; K57.30 Diverticulosis of large intestine without perforation or abscess without bleeding; K44.9 Diaphragmatic hernia without obstruction or gangrene; K21.00 Gastro-esophageal reflux disease with esophagitis, without bleeding; K29.80 Duodenitis without bleeding; F17.200 Nicotine dependence, unspecified, uncomplicated; R10.84 Generalized abdominal pain; R19.7 Diarrhea, unspecified; R63.4 Abnormal weight loss; Z68.1 Body mass index [BMI] 19.9 or less, adult
CPT/HCPCS: 43239; 45380; 45385; 88305; 88313; J7120; J2405

== ENCOUNTER → 2023-02-12 | Outpatient (CLI) | payer MEDICARE, SELFPAY | END | disposition home or self-care (01) | LOC: LAB 11:16 | PROVIDERS: PCP Family Medicine; Referring Provider Internal Medicine Gastroenterology; Visit Provider Internal Medicine Gastroenterology | DX: R19.7 Diarrhea, unspecified (principal) ==

== ENCOUNTER 2023-02-19 11:47 | Outpatient (CLI) | payer MEDICARE, SELFPAY ==
[2023-02-19 13:09] LABS: ALB/GLOB Ratio 1.3 RATIO (0.9-2.4); AST(SGOT) 26 U/L (15-37); Alanine Aminotransfer ALT/SGPT 28 U/L (13-56); Albumin, Serum 4.2 g/dL (3.2-5.0); Alkaline Phosphatase 76 U/L (45-117); Anion Gap 4 (5-15); BUN 17 mg/dL (7-18); BUN/Creat Ratio 21.9 RATIO (10-20); Calcium,Total 9.4 mg/dL (8.5-10.1); Chloride 105 mmol/L (98-107); Creatinine, Serum 0.78 mg/dL (0.55-1.02); EST Glomerular Filtration Rate 79 mL/min (>60); Est Glom Filt Rate - Afr Amer 95 mL/min (>60); Globulin 3.3 g/dL (2.2-4.2); Glucose 82 mg/dL (74-106); Protein, Total 7.5 g/dL (6.4-8.2); Sodium Level 139 mmol/L (136-145)
[2023-02-19 13:33] LABS: HIV - WCH Non-Reactive (Nonreactive); Vitamin B12 620 pg/mL (211-911)
[2023-02-20 15:08] LABS: Endomysial Antibody IgA Negative (Negative); Immunoglobulin A 80 mg/dL (87-352); t-Transglutaminase IgA <2 U/mL (0-3)
[2023-02-22 00:07] LABS: Anti-Centromere B Ab <0.2 AI (0.0-0.9); Anti-Chromatin <0.2 AI (0.0-0.9); Anti-Jo <0.2 AI (0.0-0.9); Anti-Scleroderma-70 AB <0.2 AI (0.0-0.9); Anti-dsDNA Ab <1 IU/mL (0-9); Beef 0.17 kU/L (Class 0/I); Chocolate <0.10 kU/L (Class 0); Clam <0.10 kU/L (Class 0); Codfish <0.10 kU/L (Class 0); Corn <0.10 kU/L (Class 0); Egg, White <0.10 kU/L (Class 0); Egg, Whole <0.10 kU/L (Class 0); Peanut <0.10 kU/L (Class 0); Pork <0.10 kU/L (Class 0); RNP Ab 1.3 AI (0.0-0.9); SCALLOP <0.10 kU/L (Class 0); SESAME SEED <0.10 kU/L (Class 0); SJOGREN'S Anti-SS-A test < 0.2 AI (0.0-0.9); SJOGREN'S Anti-SS-B test < 0.2 AI (0.0-0.9); Shrimp <0.10 kU/L (Class 0); Smith Ab <0.2 AI (0.0-0.9); Soybean <0.10 kU/L (Class 0); Walnut, (Food) <0.10 kU/L (Class 0); Wheat <0.10 kU/L (Class 0)
== END 2023-02-19 23:59 | disposition home or self-care (01) ==
PROVIDERS: PCP Family Medicine; Referring Provider Internal Medicine Gastroenterology; Visit Provider Internal Medicine Gastroenterology
DX: R19.7 Diarrhea, unspecified (principal); R63.4 Abnormal weight loss; R10.10 Upper abdominal pain, unspecified
CPT/HCPCS: 36415; 80053; 82607; 82652; 82784; 83516; 86003; 86005; 86225; 86235; 86255; 86703

== ENCOUNTER → 2023-04-23 | Outpatient (CLI) | payer MEDICARE, SELFPAY ==
[2023-04-23 16:06] LABS: EXAGEN MAILED SPECIMEN
[2023-04-23 17:46] LABS: Absolute Lymphocyte Count 1.62 X10^3/uL (0.83-4.51); Absolute Neutrophil Count 3.1 X10^3/uL (2.0-7.7); Basophil# 0.01 X10^3/uL; Basophil% 0.2 % (0-1); Eosinophil# 0.07 X10^3/uL; Eosinophils% 1.4 % (0-5); Hematocrit 39.5 % (37-47); Hemoglobin 12.8 g/dL (12.0-15.0); Lymphocyte # 1.62 X10^3/ul (0.83-4.51); Lymphocyte % 31.4 % (19-41); Mean Corp Hgb Conc 32.4 g/dL (32-36); Mean Corpuscular Hgb 31.8 pg (27.0-32.0); Mean Corpuscular Volume 98.3 fL (81-99); Mean Platelet Vol. 9.4 fl (6.2-12.0); Monocyte% 7.8 % (0-10); NRBC Flagged by Analyzer 0 % (0-5); Neutrophil # 3.05 X10^3/uL (2.7-7.7); Platelet Count 228 K/mm3 (150-450); RBC Distribution Width CV 13.6 % (11.6-14.6); RBC Distribution Width SD 49.4 fl (35.1-43.9); Red Blood Count 4.02 M/mm3 (4.2-5.4); White Blood Count 5.2 K/mm3 (4.4-11.0)
[2023-04-23 17:59] LABS: Erythrocyte Sedimentation Rate 3 mm/hr (0-30)
[2023-04-23 18:16] LABS: Color, Urine Yellow (Yellow); Glucose, Dipstick Normal (Normal); Ketone-Dipstick Negative (Negative); Leukocyte Esterase-Dipstick Negative /ul (Negative); Nitrite-Dipstick Negative (Negative); Occult Blood-Urine 10 /ul (Negative); Protein-Dipstick Negative (Negative); Specific Gravity, Urine 1.015 (1.002-1.030); Urine Bilirubin Dipstick Negative (Negative); Urine Clarity Clear (Clear); Urine Urobilinogen 1 mg/dl (Normal); Urine pH 6.5 (5.0 - 8.0)
[2023-04-23 18:59] LABS: Protein, Urine (Random) 10.1 mg/dL (<11.9); Protein:Creat Ratio 95 mg/g CRE (0-200)
[2023-04-23 19:16] LABS: ALB/GLOB Ratio 1.2 RATIO (0.9-2.4); AST(SGOT) 20 U/L (15-37); Alanine Aminotransfer ALT/SGPT 24 U/L (13-56); Albumin, Serum 3.9 g/dL (3.2-5.0); Alkaline Phosphatase 69 U/L (45-117); Anion Gap 4 (5-15); BUN 18 mg/dL (7-18); CRP < 2.90 mg/L (0.0-3.0); Calcium,Total 9.4 mg/dL (8.5-10.1); Chloride 107 mmol/L (98-107); Creatinine, Serum 0.86 mg/dL (0.55-1.02); EST Glomerular Filtration Rate 70 mL/min (>60); Est Glom Filt Rate - Afr Amer 85 mL/min (>60); Globulin 3.2 g/dL (2.2-4.2); Glucose 86 mg/dL (74-106); Potassium 4.2 mmol/L (3.5-5.1); Protein, Total 7.1 g/dL (6.4-8.2); Sodium Level 140 mmol/L (136-145)
== END | disposition home or self-care (01) ==
LOC: MTLAB 15:02
PROVIDERS: PCP Family Medicine; Referring Provider Internal Medicine Rheumatology; Visit Provider Internal Medicine Rheumatology
DX: M19.041 Primary osteoarthritis, right hand (principal); M47.897 Other spondylosis, lumbosacral region; R76.8 Other specified abnormal immunological findings in serum; R19.7 Diarrhea, unspecified; R63.4 Abnormal weight loss; R10.9 Unspecified abdominal pain
CPT/HCPCS: 36415; 80053; 81002; 82570; 84156; 85025; 85652; 86140

== ENCOUNTER → 2023-07-17 | Outpatient (CLI) | payer MEDICARE, SELFPAY ==
--- NOTE | 2023-07-17 11:49 | BI_ITS ---
MAMMOGRAPHY - BILATERAL SCREENING REASON FOR EXAM: Female, 68 years old. Routine annual screening examination. PERTINENT HISTORY: Non-contributory. Remote left excisional breast biopsy. TECHNIQUE: Digital bilateral breast yamileth (3D mammographic acquisition) in the CC and MLO projections. 2-D mediolateral oblique (MLO) and craniocaudad (CC) views of both breasts were obtained. CAD: Full Field Digital Mammography with Computer Added Detection was performed. COMPARISON: Comparison is made with prior examination dated November 20, 2021. FINDINGS: Breast Composition: The breasts are extremely dense, which lowers the sensitivity of mammography. There are no dominant masses or suspicious calcifications. No other significant abnormalities are identified. There has been no significant change since the prior study. BI/SCRN MAMM (CAD)W/YAMILETH BILAT IMPRESSION: Stable bilateral screening mammogram. Yearly follow-up mammogram recommended. (A) ASSESSMENT CATEGORY: BIRADS Category 1: Negative. A letter regarding these results will be sent to the patient by the facility within 30 days. Approximately 10% of breast cancers are not detected by mammography. A normal mammogram should not delay biopsy of a clinically suspicious abnormality. [id number] Electronically Signed: Reynold Weller MD at 13:07 EST ,
== END | disposition home or self-care (01) ==
LOC: OPBI 11:48
PROVIDERS: PCP Family Medicine; Referring Provider Family Medicine; Visit Provider Family Medicine
DX: Z12.31 Encounter for screening mammogram for malignant neoplasm of breast (principal)
CPT/HCPCS: 77063; 77067

== ENCOUNTER → 2023-07-29 | Outpatient (CLI) | payer MEDICARE, SELFPAY ==
--- NOTE | 2023-07-29 12:24 | CT_ITS ---
STUDY: CT ABDOMEN AND PELVIS WITH CONTRAST REASON FOR EXAM: Female, 68 years old. ?Superior mesenteric artery syndrome RADIATION DOSAGE (If Supplied By Facility): CTDIvol = ( 9.18 ) mGy, DLP = ( 453.36 ) mGycm TECHNIQUE: Oral and amp; IV Readi-CAT and amp; 100mL Isovue-370 was administered. Transaxial images were obtained from the dome of the diaphragm to the symphysis pubis. Multiplanar coronal and sagittal images were reformatted. Individualized Dose Optimization Techniques Were Used For This CT. COMPARISON: Prior study dated: 11/12/2022. FINDINGS: The visualized lung bases are unremarkable. The visualized portions of the heart are within normal limits. 3 mm low-density nodule in the anterior segment of the right lobe of the liver probably representing cyst. Hepatomegaly or Gregoria''s lobe of the liver. Contracted gallbladder without evidence of gallstones. 1 cm splenic cyst again seen unchanged. Normal pancreas. Normal bilateral adrenal glands. Distended stomach. Normal in caliber small bowel loops. No evidence of acute diverticulitis. There is non-visualization of the appendix. There is atherosclerotic calcification of the abdominal aorta, without a demonstrated aneurysm. The celiac axis and the SMA appear unremarkable without significant stenosis. Patent RIGO. Unremarkable bilateral renal arteries. Atherosclerotic calcifications of the common iliacs arteries bilaterally. No evidence of retroperitoneal adenopathy. Normal right kidney. Normal left kidney. Normal urinary bladder. Normal abdominal wall. [Scoliosis and degenerative changes of the spine. CT/Abdomen/Pelvis WITH Contrast IMPRESSION: 1. No focal acute inflammatory process. 2. Patent celiac axis and superior mesenteric artery without evidence of stenosis. Electronically Signed: Gian Koehler MD at 15:19 EST ,
[2023-07-29 12:56] LABS: CREATININE FINGERSTICK < 1.0 mg/dL (0.55-1.02); EGFR FINGERSTICK > 60.0000 mL/min (>60)
== END | disposition home or self-care (01) ==
PROVIDERS: PCP Family Medicine; Referring Provider Internal Medicine Gastroenterology; Visit Provider Internal Medicine Gastroenterology
DX: R63.4 Abnormal weight loss (principal)
CPT/HCPCS: 74177; Q9967

== ENCOUNTER → 2023-12-30 | Outpatient (CLI) | payer MEDICARE, SELFPAY ==
--- NOTE | 2023-12-30 14:14 | RAD_ITS ---
INDICATION: PAIN EXAMINATION/TECHNIQUE: X-RAY - LEFT XR Shoulder Min 2 Views 5 images COMPARISON: No relevant prior comparison study available FINDINGS: SOFT TISSUES: No soft tissue swelling or gas. No radiopaque foreign body. BONES/JOINTS: No acute fracture or subluxation.. Normal alignment. Mild degenerative changes of the glenohumeral and acromioclavicular joints with joint space narrowing.. No sclerotic or destructive changes observed. The visualized ribs are intact. RAD/Shoulder min 2 Views IMPRESSION: No fracture or malalignment. Mild degenerative changes. Electronically Signed: Jeferson Hernandez MD at 14:31 EDT ,
--- NOTE | 2023-12-30 14:17 | RAD_ITS ---
INDICATION: PAIN EXAMINATION/TECHNIQUE: X-RAY - LEFT XR Wrist 2 Views 2 VIEWS COMPARISON: No relevant prior comparison study available FINDINGS: SOFT TISSUES: No soft tissue swelling or gas. No radiopaque foreign body. BONES/JOINTS: No acute fracture or subluxation.. The carpal rows are aligned. Degenerative changes are seen at the first carpometacarpal joint with joint space narrowing and osteophytes.. No sclerotic or destructive changes observed. RAD/Wrist 2 Views IMPRESSION: No fracture or malalignment. Degenerative changes of the first carpometacarpal joint. Electronically Signed: Jeferson Hernandez MD at 14:34 EDT ,
== END | disposition home or self-care (01) ==
LOC: RAD 14:06
PROVIDERS: PCP Family Medicine; Referring Provider Family Medicine; Visit Provider Family Medicine
DX: M25.512 Pain in left shoulder (principal)
CPT/HCPCS: 73030; 73100

== ENCOUNTER → 2024-01-06 | Outpatient (CLI) | payer MEDICARE, SELFPAY ==
[2024-01-06 17:44] LABS: Absolute Neutrophil Count 3.2 X10^3/uL (2.0-7.7); Basophil# 0.02 X10^3/uL; Basophil% 0.4 % (0-1); Eosinophil# 0.05 X10^3/uL; Eosinophils% 0.9 % (0-5); Hematocrit 40.3 % (37-47); Hemoglobin 13.2 g/dL (12.0-15.0); Lymphocyte % 34.1 % (19-41); Mean Corp Hgb Conc 32.8 g/dL (32-36); Mean Corpuscular Hgb 31.4 pg (27.0-32.0); Mean Platelet Vol. 9.3 fl (6.2-12.0); Monocyte# 0.44 X10^3/uL; Monocyte% 7.9 % (0-10); NRBC Flagged by Analyzer 0 % (0-5); Neutrophil # 3.17 X10^3/uL (2.7-7.7); Neutrophil % 56.7 % (47-70); Platelet Count 205 K/mm3 (150-450); RBC Distribution Width CV 13.6 % (11.6-14.6); RBC Distribution Width SD 48.2 fl (35.1-43.9); White Blood Count 5.6 K/mm3 (4.4-11.0)
[2024-01-06 18:02] LABS: Erythrocyte Sedimentation Rate 2 mm/hr (0-30)
[2024-01-06 18:26] LABS: ALB/GLOB Ratio 1.3 RATIO (0.9-2.4); AST(SGOT) 25 U/L (15-37); Alanine Aminotransfer ALT/SGPT 25 U/L (13-56); Albumin, Serum 4.1 g/dL (3.2-5.0); Alkaline Phosphatase 80 U/L (45-117); Anion Gap 5 (5-15); BUN 17 mg/dL (7-18); BUN/Creat Ratio 19.4 RATIO (10-20); CRP < 2.90 mg/L (0.0-3.0); Calcium,Total 9.1 mg/dL (8.5-10.1); Chloride 105 mmol/L (98-107); Creatinine, Serum 0.88 mg/dL (0.55-1.02); EST Glomerular Filtration Rate 69 mL/min (>60); Est Glom Filt Rate - Afr Amer 83 mL/min (>60); Globulin 3.1 g/dL (2.2-4.2); Glucose 96 mg/dL (74-106); Potassium 3.7 mmol/L (3.5-5.1); Protein, Total 7.2 g/dL (6.4-8.2); Sodium Level 137 mmol/L (136-145)
== END | disposition home or self-care (01) ==
LOC: MTLAB 16:00
PROVIDERS: PCP Family Medicine; Referring Provider Internal Medicine Rheumatology; Visit Provider Internal Medicine Rheumatology
DX: M19.041 Primary osteoarthritis, right hand (principal); M47.897 Other spondylosis, lumbosacral region; R76.8 Other specified abnormal immunological findings in serum; R19.7 Diarrhea, unspecified; R63.4 Abnormal weight loss; R10.9 Unspecified abdominal pain
CPT/HCPCS: 36415; 80053; 85025; 85652; 86140

== ENCOUNTER → 2024-08-25 | Outpatient (CLI) | payer MEDICARE, SELFPAY ==
[2024-08-25 15:44] LABS: AST(SGOT) 24 U/L (15-37); Alanine Aminotransfer ALT/SGPT 25 U/L (13-56); Albumin, Serum 3.6 g/dL (3.2-5.0); Alkaline Phosphatase 86 U/L (45-117); Anion Gap 7 (5-15); BUN 22 mg/dL (7-18); BUN/Creat Ratio 22.3 RATIO (10-20); CRP 6.28 mg/L (0.0-3.0); Calcium,Total 8.9 mg/dL (8.5-10.1); Chloride 103 mmol/L (98-107); Creatinine, Serum 0.99 mg/dL (0.55-1.02); EST Glomerular Filtration Rate 60 mL/min (>60); Est Glom Filt Rate - Afr Amer 72 mL/min (>60); Globulin 3.5 g/dL (2.2-4.2); Glucose 110 mg/dL (74-106); Potassium 3.6 mmol/L (3.5-5.1); Protein, Total 7.1 g/dL (6.4-8.2); Sodium Level 139 mmol/L (136-145)
[2024-08-25 16:25] LABS: Erythrocyte Sedimentation Rate 6 mm/hr (0-30)
[2024-08-25 16:26] LABS: Absolute Lymphocyte Count 1.15 X10^3/uL (0.83-4.51); Absolute Neutrophil Count 2.5 X10^3/uL (2.0-7.7); Basophil# 0.01 X10^3/uL; Basophil% 0.2 % (0-1); Eosinophil# 0.02 X10^3/uL; Eosinophils% 0.5 % (0-5); Hematocrit 38.6 % (37-47); Hemoglobin 12.7 g/dL (12.0-15.0); Lymphocyte # 1.15 X10^3/ul (0.83-4.51); Lymphocyte % 27.3 % (19-41); Mean Corp Hgb Conc 32.9 g/dL (32-36); Mean Corpuscular Hgb 31.8 pg (27.0-32.0); Mean Corpuscular Volume 96.7 fL (81-99); Mean Platelet Vol. 10.3 fl (6.2-12.0); Monocyte# 0.52 X10^3/uL; Monocyte% 12.4 % (0-10); NRBC Flagged by Analyzer 0 % (0-5); Neutrophil # 2.51 X10^3/uL (2.7-7.7); Neutrophil % 59.6 % (47-70); Platelet Count 224 K/mm3 (150-450); RBC Distribution Width CV 13.2 % (11.6-14.6); RBC Distribution Width SD 47.1 fl (35.1-43.9); Red Blood Count 3.99 M/mm3 (4.2-5.4); White Blood Count 4.2 K/mm3 (4.4-11.0)
== END | disposition home or self-care (01) ==
PROVIDERS: PCP Family Medicine; Referring Provider Internal Medicine Rheumatology; Visit Provider Internal Medicine Rheumatology
DX: M19.041 Primary osteoarthritis, right hand (principal); R76.8 Other specified abnormal immunological findings in serum; M47.897 Other spondylosis, lumbosacral region
CPT/HCPCS: 36415; 80053; 85025; 85652; 86140

== ENCOUNTER → 2024-09-23 | Outpatient (CLI) | payer MEDICARE, SELFPAY ==
--- NOTE | 2024-09-23 08:37 | BD_ITS ---
PROCEDURE: DEXA BONE DENSITY STUDY REASON FOR EXAM: F, age 69 y/o . Postmenopausal. TECHNIQUE: DEXA scan of the lumbar spine and both hips. COMPARISON: None. FINDINGS: Lumbar Spine (L1-L4): g/cm2 (0.761)/T-score (-3.1)/Z-score (-1.0) findings are suggestive of osteoporotic with a high fracture risk. Left Femur Total: g/cm2 (0.539)/T-score (-3.3)/Z-score (-1.9) Left Femoral Neck: g/cm2 (0.471)/T-score (-3.4)/Z-score (-1.7) Right Femur Total: g/cm2 (0.589)/T-score (-2.9)/Z-score (-1.5) Right Femoral Neck: g/cm2 (0.508)/T-score (-3.1)/Z-score (-1.4) BD/Dexa Bone Density Study IMPRESSION: The patient is considered osteoporotic as outlined below according to World [employer] Organization (WHO) criteria with a high fracture risk. Reading Location: [facility]
== END | disposition home or self-care (01) ==
LOC: OPBD 08:35
PROVIDERS: PCP Family Medicine; Referring Provider Family Medicine; Visit Provider Family Medicine
DX: M81.0 Age-related osteoporosis without current pathological fracture (principal)
CPT/HCPCS: 77080

== ENCOUNTER → 2025-03-26 | Outpatient (CLI) | payer MEDICARE, SELFPAY ==
--- OUTSIDE RECORDS SUMMARY | 2025-03-26 07:34 | XMS RPT_ITS | CCD ---
Author Organization [facility] CliniSymt Care Team Providers Care Information Coder Name Role Phone EFREN GILLETTE Attending Unavailable GUNSONU LENTZ Referring Unavailable NAIN EFREN Attending Unavailable NAIN, EFREN Referring Unavailable GUNNING , DR TAMEZ Primary Care Physician [phone] MD Primary Care Provider Gungabriele, Dr. Tamez Primary Care Provider Gus, Dr. Tamez Referring Provider Tomer [employer] Helen Johnson Attending Provider [phone] Friend, Dr. Sims Attending Provider FriendDr. Sims Other Provider Gungabriele, Dr. Tamez Primary Care Provider Gunning, Dr. Tamez Referring Provider Gunning, Dr. Tamez Primary Care Provider Gunning, Dr. Tamez Referring Provider FriendDr. Sims Attending Provider Sonu Lane MD Primary Care Provider Sonu Lane MD Primary Care Provider Gus ELLIS, Dr. Tamez Primary Care Provider Un available Gus ELLIS, Dr. Tamez Referring Provider Unava ilable Friend DO, Dr. Sims Attending Provider Dr. Alisha Piña MD Attending Provider Dr. Alisha Piña MD Referring Provider Gus ELLIS, Dr. Tamez Attending Provider Unava ilable Alisha Piña Attending Unavailable Sonu Lane Primary Care Unavailable Alisha Piña Referring Unavailable Gunning, Sonu Primary Care Unavailable Gunning, Sonu Attending Unavailable Gunning, Sonu Referring Unavailable Gunning, Sonu Referring Unavailable Gunning, Sonu Primary Care Unavailable Friend, Levi Attending Unavailable Friend, Levi Attending Unavailable Gunning, Sonu Primary Care Unavailable Gunning, Sonu Referring Unavailable Vellanki, Alisha Attending Unavailable Alisha Piña Referring Unavailable Gunning, Sonu Primary Care Unavailable Gunning, Sonu Attending Unavailable Gunning, Sonu Referring Unavailable Gunning, Sonu Primary Care Unavailable Gunning, Sonu Referring Unavailable Gunning, Sonu Primary Care Unavailable Friend, Levi Attending Unavailable Gunning, Sonu Referring Unavailable Gunning, Sonu Primary Care Unavailable Friend, Levi Attending Unavailable Gunning, Sonu Primary Care Unavailable Friend, Levi Attending Unavailable Allergies Allergy Classification Reported Allergen(s) Allergy Type Date of Onset Reaction(s) Facility (9 sources) Codeine; Translations: [CODEINE] Drug Allergy 08-21-2018 [facility] Repository Medications Current Medications Medication Drug Class(es) Dates Sig (Normalized) Sig (Original) amylase 244901 unt / lipase 24264 unt / protease 71884 unt delayed release oral capsule (7 sources) Start: 01-24-2023 End: 09-16-2024 take 71032-60808 capsules by mouth three times daily at mealtime Zbgenv-Sntqzrch-Gl ylase (Zenpep) 25,000-79,000- 105,000 unit capsule,delayed release(DR/EC) Active 1 NMA PO THREE TIMES A DAY September 16, 2024 11:55am administer with meals and/or snacks ascorbic acid 1000 mg oral capsule (6 sources) Vitamin C Start: 02-19-2023 take 1 g by mouth every six hours Ascorbic Acid (Vitamin C) 1,000 mg capsule Active 1 g PO EVERY 6 HOURS February 19, 2023 12:00am Start: 02-19-2023 take 1 g by mouth ev dhara six hours Ascorbic Acid (Vitamin C) Active 1 GM PO EVERY 6 HOURS February 18, 2023 11:00pm Start: 02-19-2023 take 1 g by mouth ev dhara six hours Ascorbic Acid (Vitamin C) Active 1 GM PO EVERY 6 HOURS February 19, 2023 12:00am Start: 11-06-2021 Vitamin C qDay , 0 Refill(s) Start Date: 11/06/21 Status: Ordered B Complex 50 oral tablet (2 sources) Start: 11-06-2021 B Complex 50 oral tablet Oral, qDay, 0 Refill(s) Start Date: 11/06/21 Status: Ordered Calcium (2 sources) Phosphate Binder, Calcium Start: 11-06-2021 calcium (as carbonate) 500 mg oral tablet with Vitamin D3, 0 Refill(s) Start Date: 11/06/21 Status: Ordered cholecalciferol 1.25 mg oral capsule (4 sources) Vitamin D Start: 02-19-2023 take 1 capsule by mouth every month Cholecalciferol (Vitamin D3) 1,250 mcg (50,000 unit) capsule Active 1250 ug PO EVERY MONTH February 19, 2023 12:00am dicyclomine hydrochloride 20 mg oral tablet (2 sources) Anticholinergic Start: 11-12-2022 take 20 mg by mouth three times daily Dicyclomine Active 20 MG PO THREE TIMES A DAY November 12, 2022 2:41pm Start: 01-18-2016 take 1 tablet by ava th every six hours as needed dicyclomine (BENTYL) 20 MG tablet Take 1 tablet by mouth every 6 hours As needed for cramping 20 tablet 0 01/18/2016 Active ergocalciferol 1.25 mg oral capsule (1 source) Provitamin D2 Compound take 1 capsule by mouth two times weekly vitamin D (ERGOCALCIFEROL) 29700 UNITS CAPS capsule Take 50,000 Units by mouth Twice a Week 0 Active Folic Acid (2 sources) Start: 11-07-19 folic acid qDay, 0 Refill(s) Start Date: 11/06/21 Status: Ordered Lidocaine (2 sources) Antiarrhythmic, Amide Local Anesthetic Start: 08-14-19 Lidocaine Hcl (Lidocaine Viscous) 2 % solution Active 15 ML MUCOUS MEM EVERY 6 HOURS August 14, 2021 6:17pm Start: 08-14-2021 Lidocaine Hcl (Lidocaine Viscous) 2 % solution Active 15 ML MUCOUS MEM EVERY 6 HOURS August 14, 2021 5:17pm mirtazapine 30 mg oral tablet (1 source) Start: 04-23-2024 take 1 tablet by mouth at bedtime Mirtazapine 30 mg tablet Active 30 mg PO AT BEDTIME April 23, 2024 12:00am ondansetron 4 mg disintegrating oral tablet (1 source) Serotonin-3 Receptor Antagonist Start: 11-12-2022 take 4 mg by mouth every six hours Ondansetron Active 4 MG PO EVERY 6 HOURS November 12, 2022 12:00am pantoprazole 40 mg delayed release oral tablet (3 sources) Proton Pump Inhibitor Start: 08-10-2024 take 1 tablet by mouth once daily Pantoprazole 40 mg tablet,delayed release (DR/EC) Active 40 mg PO daily August 10, 2024 1:00am Start: 11-06-2021 Protonix 40 mg oral enteric coated tablet Dose : 40 mg = 1 tab(s), Oral, qDay, # 30 tab(s), 0 Refill(s) Start Date: 11/06/21 Status: Ordered papaya allergenic extract (1 source) Non-Standardized Food Allergenic Extract PAPAYA PO Take by mouth as needed 0 Active sucralfate 100 mg/ml oral suspension (2 sources) Aluminum Complex Start: take 1 mL by mouth twice daily Sucralfate (Carafate) 100 mg/mL suspension Active 10 ML PO TWICE A DAY August 14, 2021 6:17pm zinc acetate 50 mg oral capsule (2 sources) Start: zinc (as acetate) 50 mg oral capsule Dose : 50 mg = 1 cap(s), Oral, TID, # 250 cap(s), 0 Refill(s) Start Date: 11/06/21 Status: Ordered Completed/Discontinued Medications Medication Drug Class(es) Dates Sig (Normalized) Sig (Original) Ggvrzm-Jnxvuwcw-Oi ylase (5 sources) Start: 01-24-2023 End: 04-21-2023 take 2 capsules by mouth once daily Ldxfvm-Jtkdgkwx-Hwn lase Discontinued 2 CAP PO DAILY January 23, 2023 11:00pm April 21, 2023 1:32pm Start: 01-24-2023 End: 04-21-2023 take 2 capsules by mouth once daily Gawjev-Asnejrgm-Clpzhks Discontinued 2 CAP PO DAILY January 24, 2023 12:00am April 21, 2023 2:32pm Start: 01-24-2023 take 2 capsules by m outh once daily Uyyvgv-Jaenhzwx-Ugqdket Active 2 CAP PO DAILY January 24, 2023 12:00am Hyxhhz-Ydzbinhg-Xtafqem 40,000-136,000- 218,000 unit capsule,delayed release(DR/EC) (1 source) Start: 01-24-2023 End: 04-21-2023 Ybjqny-Kvgicweb-Subwgfy 40,000-136,000- 218,000 unit capsule,delayed release(DR/EC) Discontinued 2 NMA PO DAILY January 24, 2023 12:00am April 21, 2023 2:32pm predniSONE 20 mg oral tablet (1 source) Start: 04-23-2024 End: 08-10-2024 take 1 tablet by mouth at bedtime Prednisone 20 mg tablet Discontinued 20 mg PO BEDTIME April 23, 2024 12:00am August 10, 2024 11:10am Problems Active Problems Problem Classification Problem Date Documented Da te Episodic/Chronic Abdominal pain (20 sources) Generalized abdominal pain; Translations: [Upper abdominal pain] Onset: 08-21-2018 12-11-2022 Episodic Nausea and vomiting (7 sources) Nausea and vomiting; Translations: [Nausea with vomiting, unspecified] 11-20-2022 Episodic Osteoarthritis (1 source) Primary osteoarthritis, right hand; Translations: [Primary osteoarthritis, right hand] Onset: 09-10-2024 Chronic Osteoporosis (1 source) Age-related osteoporosis without current pathological fracture; Translations: [Age-related osteoporosis without current pathological fracture] Onset: 10-07-2024 Chronic Other circulatory disease (8 sources) Sensation of foreign body in throat; Translations: [Other specified symptoms and signs involving the circulatory and respiratory systems] 08-22-2021 Episodic Other gastrointestinal disorders (8 sources) Diarrhea; Translations: [Diarrhea, unspecified] 12-11-2022 Episodic Other gastrointestinal disorders (7 sources) Diarrhea, unspecified; Translations: [Diarrhea] 12-11-2022 Episodic Other gastrointestinal disorders (1 source) Functional diarrhea; Translations: [Functional diarrhea] Onset: 08-26-2024 Episodic Other injuries and conditions due to external causes (1 source) Angioedema; Translations: [Angioneurotic edema, subsequent encounter] 07-11-2023 Episodic Other nutritional; endocrine; and metabolic disorders (8 sources) Unexplained weight loss ; Translations: [Abnormal weight loss] 12-11-2022 Episodic Other nutritional; endocrine; and metabolic disorders (8 sources) Abnormal weight loss; Translations: [Loss of weight] Onset: 08-26-2024 12-11-2022 Episodic Other skin disorders (7 sources) H/O: breast problem; Translations: [Personal history of diseases of the skin and subcutaneous tissue] 12-11-2022 Episodic Substance-related disorders (5 sources) Marijuana user; Translations: [Cannabis use, unspecified, uncomplicated] Onset: 08-26-2024 08-01-2023 Episodic Comment on above: Since [age] smok ing 3-4 times per day every day. Past or Other Problems Problem Classification Problem Date Documented Da te Episodic/Chronic Other non-traumatic joint disorders (1 source) Pain in left shoulder; Translations: [Pain in left shoulder] Onset: 01-06-2024 Episodic Results Test Name Value Interpretation Reference Range Facility Gastroenterology Visit Repor ton 11-16-2024 Gastroenterology Visit Report [facility] [address] [place] [address] OFFICE VISIT Date of Service: 11/16/24 MR#: [id number] Acct: [id number] Name: CLARIBEL FIELDS Rep #: [id number] : 1955 Provider: Levi Mercado DO Age/Sex: 69/F Location: [facility] [place] [facility] [place] Status: Signed Intake Vital Signs 04/23/24 10:38 08/10/24 13:11 11/16/24 10:17 Height 5 ft 3 in 5 ft 3 in 5 ft 3 in Weight: 105 lb 104 lb 6 oz BMI 18.6 18.4 Intake Visit Reasons: 4 M FU Allergies codeine Adverse Reaction (Verified 02/19/23 11:09) Nausea Medications ???Medication ???Instructions ???Recorded ???Confirmed ???Type ascorbic acid (vitamin C) 1,000 mg 1 g PO Q6H #30 caps 02/19/23 Rx capsule cholecalciferol (vitamin D3) 1,250 1,250 mcg PO QMONTH #1 cap 02/1911/16/24 Rx mcg (50,000 unit) capsule mirtazapine 30 mg tablet 30 mg PO QHS #30 tabs 04/23/24 Rx pantoprazole 40 mg tablet,delayed 40 mg PO QDAY 08/10/24 11/16/24 H istory release sllzgc-rprjxbbd-xquxwar 1 cap PO TID #90 caps 09/16/24 Rx 25,000-79,000-105,000 unit capsule,delayed rel (Zenpep) Have you fallen in the past year?: No PFSH Medical History Wears dentures Wears glasses Post-menopausal Kidney stone Back pain Injury of head and neck Difficulty swallowing Smoker History of edema Hx of cyst of breast GERD (gastroesophageal reflux disease) Surgical History Hx of ovarian cystectomy Social History Smoking Status: Current some day smoker tobacco type: cigarettes HPI HPI Details: CLARIBEL FIELDS, is a 69 F who presents to the office today for follow up. [facility] ed 11.12.22 with abdominal pain, N/V with remote establishment with GI. Workup without acute concern and discharged with bentyl and antiemetics. ? CT abd/pel 11.12.22 adrenal adenoma 1cm; tiny layering gallstones of gallbladder. *BGI established 12.11.22 with intermittent presentation of abdominal pain lasting hours to days with associated N/V. Loose stools not associated with abd pain also a problem. ? Biochemical CBC, ESR, CMP, LFT, CRP, LDH, TSH, MILLIE comp (PLASTERER MAINTENANCE H1.3), ASM, AMA, celiac (IgA L85) without pertinent abnormality. ? apANCA H1:320, ? Stool fats, calprotectin, lactoferrin WNL.? Elastase L144 ? US RUQ 12.19.22 hepatic measurement 14.9cm. ? Biochemical 12.19.22 IgG, celiac (IgA L) IgG4 L1, IgA L79, IgE L5 ? EGD and colonoscopy 01.30.23 EGD LA Grade A esophagitis; small hiatal hernia; duodenitis with ulcerations. ? Colonoscopy five sessile TA polyps; congested mucosa; diverticulosis; severe stenosis at hepatic flexure, traversed without path changes. Contact 02.10.23 with ongoing symptoms. Would like to avoid medications at this time; has started Ensure which she finds helpful OV 02.19.23 with ongoing concern regarding weight loss, currently 95lbs with recent appetite increase. Abdominal cramping is an issue but loose stools have resolved. ? Biochemical CMP (t.bili H1.1), LFT, Vit B12, Vit D1,25, celiac (IgA L), IBD, MPO, PR3 without pertinent abnormality ? PLASTERER MAINTENANCE H1.3? RAST Class I beef; Class II cow???s milk Contact 02.28.23 She is already been referred to see rheumatology. ? Biochemical HLA celiac WNL Contact 04.21.23 she has not started PERT as her daughter does not want her to take it and has not eliminated food sensitivities. Contact 07.15.23 reporting rfid systems architect visit who thinks she has SMA. ? CT abd/pel 07.29.23 hepatic cyst; hepatomegaly versus Gregoria???s lobe. No celiac/mesenteric artery abnormality. OV 08.01.23 continues to lose weight reports current weight 92lbs. she weighed 102lbs. In the last four months she has lost 5lbs. Continues to have nausea and early satiety, headaches. No intense abdominal pain. Zofran effective. Reports marijuana use 3-4 times a day, every day since age [age] years old. OV 01.06.24 pt reports continued symptoms from previous visit. pt reports 2-3 bm per day; denies blood in the stool. Pt continues with Zenpep. OV 04.23.24 pt reports that she is feeling better and has gained 10lbs since LV. Pt is drinking 3 boost p (more content not included)... Normal [facility] Bone density reportOrdered B y: Reynold Janee on 09-28-2024 Study report Skeletal system DXA [facility] Imaging Services [address] [place] [address] Dexa Bone Density Study MR#: [id number] Acct: [id number] Name: CLARIBEL FIELDS Rep #: [id number] : 1955 F 69 From: Felton Weller MD PCP: Dr. Sonu Lane MD Status: RE G CLI Study:Dexa Bone Density Study Date of Exam: 09/23/24 Exam# [id number] Ordering Dr: Sonu Lane MD PROCEDURE: DEXA BONE DENSITY STUDY REASON FOR EXAM: F, age 69 y/o . Postmenopausal. TECHNIQUE: DEXA scan of the lumbar spine and both hips. COMPARISON: None. FINDINGS: Lumbar Spine (L1-L4): g/cm2 (0.761)/T-score (-3.1)/Z-score (-1.0) findings are suggestive of osteoporotic with a high fracture risk. Left Femur Total: g/cm2 (0.539)/T-score (-3.3)/Z-score (-1.9) Left Femoral Neck: g/cm2 (0.471)/T-score (-3.4)/Z-score (-1.7) Right Femur Total: g/cm2 (0.589)/T-score (-2.9)/Z-score (-1.5) Right Femoral Neck: g/cm2 (0.508)/T-score (-3.1)/Z-score (-1.4) BD/Dexa Bone Density Study IMPRESSION: The patient is considered osteoporotic as outlined below according to World Nicolas Organization (WHO) criteria with a high fracture risk. Reading Location: [id number] CC: Dr. Sonu Lane MD ~ Cold Roll Packer Sheet Iron: Signed [facility] Dexa Bone Density Studyon Dexa Bone Density Study [facility] Imaging Services [address] [place] [address] Dexa Bone Density Study MR#: [id number] Acct: [id number] Name: CLARIBEL FIELDS Rep #: [id number] : 1955 F 69 From: Reynold cade MD PCP: Dr. Sonu Lane MD Status: REG CLI Study: Dexa Bone Density Study Date of Exam: 09/23/24 Exam# [id number] Ordering Dr: Sonu Lane MD PROCEDURE: DEXA BONE DENSITY STUDY REASON FOR EXAM: F, age 69 y/o . Postmenopausal. TECHNIQUE: DEXA scan of the lumbar spine and both hips. COMPARISON: None. FINDINGS: Lumbar Spine (L1-L4): g/cm2 (0.761)/T-score (-3.1)/Z-score (-1.0) findings are suggestive of osteoporotic with a high fracture risk. Left Femur Total: g/cm2 (0.539)/T-score (-3.3)/Z-score (-1.9) Left Femoral Neck: g/cm2 (0.471)/T-score (-3.4)/Z-score (-1.7) Right Femur Total: g/cm2 (0.589)/T-score (-2.9)/Z-score (-1.5) Right Femoral Neck: g/cm2 (0.508)/T-score (-3.1)/Z-score (-1.4) BD/Dexa Bone Density Study IMPRESSION: The patient is considered osteoporotic as outlined below according to World Nicolas Organization (WHO) criteria with a high fracture risk. Reading Location: [id number] CC: Dr. Sonu Lane MD Cold Roll Packer Sheet Iron: Signed [facility] 36on 08-26-2024 36 S: Patient called [facility] clinical access [place] with complaint of throat pain and white spots in the back of her throat B: throat pain started 1 week ago A: Pt complains of moderate pain. She said she can eat and drink and completely open her mouth. She denies shortness of breath or fever. She had a negative covid test yesterday. She was exposed to someone on Friday who tested Covid positive yesterday. R: Appt today at [address] Berger. Pt advised to wear mask to appt. Pt advised to bring photo ID, insurance card, medications with them to their visit if possible. Home care advise given to patient: SOFT DIET: * Eat a soft diet. * Cold drinks, popsicles, and milkshakes often work well. * Avoid citrus fruits and spicy foods. Covid questions: 1) Do you have symptoms consistent with COVID-sore throat 2) Have you tested positive for COVID in last 10 days-no 3) Have you been exposed to Covid in the last 10 days that you are aware of -yes Reason for Disposition Pus on tonsils (back of throat) and swollen neck lymph nodes ('glands') Protocols used: Sore Brfmgg-LNBDA-VW Normal [facility] Absolute neutrophil countOrd ered By: Alisha Piña on 08-25-2024 Neutrophils (Bld) [#/Vol] 2.5 10*3/uL 2.0-7.7 [facility] Albumin to globulin ratioOrd ered By: Alisha Piña on 08-25-2024 Albumin/Globulin [Mass ratio] 1.0 {ratio} 0.9-2.4 [facility] Basophil percentageOrdered B y: Alisha Piña on 08-25-2024 Basophils/100 WBC (Bld) 0.2 % 0-1 [facility] Bilirubin, totalOrdered By: Alisha Piña on 08-25-2024 Bilirubin [Mass/Vol] 0.50 mg/dL 0.20-1.00 [facility] Comment on above: For patients on eltr ombopag therapy, use of Dimension [place] TBIL is not recommended. Blood urea nitrogen (BUN)/cr eatinine ratioOrdered By: Alisha Piña on 08-25-2024 Urea nitrogen/Creatinine [Mass ratio] 22.3 mg/mg High 10-20 [facility] C-reactive protein measureme nt by high sensitivity methodOrdered By: Alisha Piña on 08-25-2024 C-Reactive Protein Extended Range 6.28 mg/L High 0.0-3.0 [facility] Comment on above: C-Reactive Protein ( CRP) provides useful information for thediagnosis, therapy and monitoring of inflammatory processesand associated diseases. For the evaluation of Relative Riskfor Cardiovascular Disease, a High Sensitivity CRP (HSCRP)should be ordered. CBC W/Diff, Automatedon 07-29 Absolute Lymph 1.15 X10 3/uL Normal 0.83-4.51 [facility] Comment on above: Performed By: #### L 101.9900, L500.4050, L501.6710, L100.0100 #### [facility] [address] [place], [address] Absolute Neut 2.5 X10 3/uL Normal 2.0-7.7 [facility] Comment on above: Performed By: #### L 101.9900, L500.4050, L501.6710, L100.0100 #### [facility] [address] [place], [address] Basophils/100 WBC (Bld) 0.2 % Normal 0-1 [facility] Comment on above: Performed By: #### L 101.9900, L500.4050, L501.6710, L100.0100 #### [facility] [address] [place], [address] Eosinophils/100 WBC (Bld) 0.5 % Normal 0-5 [facility] Comment on above: Performed By: #### L 101.9900, L500.4050, L501.6710, L100.0100 #### [facility] [address] [place], [address] Erythrocyte distribution width (RBC) [Ratio] 13.2 % Normal 11.6-14.6 [facility] Comment on above: Performed By: #### L 101.9900, L500.4050, L501.6710, L100.0100 #### [facility] [address] [place], [address] Hematocrit (Bld) [Volume fraction] 38.6 % Normal 37-47 [facility] Comment on above: Performed By: #### L 101.9900, L500.4050, L501.6710, L100.0100 #### [facility] [address] [place], [address] Hemoglobin (Bld) [Mass/Vol] 12.7 g/dL Normal 12.0-15.0 [facility] Comment on above: Performed By: #### L 101.9900, L500.4050, L501.6710, L100.0100 #### [facility] [address] [place], [address] IG% 0.000 Normal 0.0-0.9 [facility] Comment on above: Result Comment: IG% - Immature Granulocytes (promyelocytes, myelocytes and metamyelocytes) > 1% indicates that a LEFT SHIFT is Present. Performed By: #### L 101.9900, L500.4050, L501.6710, L100.0100 #### [facility] [address] [place], [address] Lymphocytes/100 WBC (Bld) 27.3 % Normal 19-41 [facility] Comment on above: Performed By: #### L 101.9900, L500.4050, L501.6710, L100.0100 #### [facility] [address] [place], [address] MCH (RBC) [Entitic mass] 31.8 pg Normal 27.0-32.0 [facility] Comment on above: Performed By: #### L 101.9900, L500.4050, L501.6710, L100.0100 #### [facility] [address] [place], [address] MCHC (RBC) [Mass/Vol] 32.9 g/dL Normal 32-36 [facility] Comment on above: Performed By: #### L 101.9900, L500.4050, L501.6710, L100.0100 #### [facility] [address] [place], [address] MCV (RBC) [Entitic vol] 96.7 fL Normal 81-99 [facility] Comment on above: Performed By: #### L 101.9900, L500.4050, L501.6710, L100.0100 #### [facility] [address] [place], [address] Monocytes/100 WBC (Bld) 12.4 % High 0-10 [facility] Comment on above: Performed By: #### L 101.9900, L500.4050, L501.6710, L100.0100 #### [facility] [address] [place], [address] Neutrophils/100 WBC (Bld) 59.6 % Normal 47-70 [facility] Comment on above: Performed By: #### L 101.9900, L500.4050, L501.6710, L100.0100 #### [facility] [address] [place], [address] Nucleated RBC (Bld) [#/Vol] 0 10*3/uL Normal 0-5 [facility] Comment on above: Performed By: #### L 101.9900, L500.4050, L501.6710, L100.0100 #### [facility] [address] [place], [address] Platelet mean volume (Bld) [Entitic vol] 10.3 fL Normal 6.2-12.0 [facility] Comment on above: Performed By: #### L 101.9900, L500.4050, L501.6710, L100.0100 #### [facility] [address] [place], [address] Platelets (Bld) [#/Vol] 224 10*3/uL Normal 150-450 [facility] Comment on above: Performed By: #### L 101.9900, L500.4050, L501.6710, L100.0100 #### [facility] [address] [place], [address] RBC (Bld) [#/Vol] 3.99 10*6/uL Low 4.2-5.4 [facility] Comment on above: Performed By: #### L 101.9900, L500.4050, L501.6710, L100.0100 #### [facility] [address] [place], [address] RDW SD 47.1 fl High 35.1-43.9 [facility] Comment on above: Performed By: #### L 101.9900, L500.4050, L501.6710, L100.0100 #### [facility] [address] [place], [address] WBC (Bld) [#/Vol] 4.2 10*3/uL Low 4.4-11.0 [facility] Comment on above: Performed By: #### L 101.9900, L500.4050, L501.6710, L100.0100 #### [facility] [address] [place], [address] CRPon 08-25-2024 C-REACTIVE PROT 6.28 mg/L High 0.0-3.0 [facility] Comment on above: Result Comment: C-Re active Protein (CRP) provides useful information for the diagnosis, therapy and monitoring of inflammatory processes and associated diseases. For the evaluation of Relative Risk for Cardiovascular Disease, a High Sensitivity CRP (HSCRP) should be ordered. Performed By: #### L 101.9900, L500.4050, L501.6710, L100.0100 #### [facility] [address] [place], [address] Carbon dioxide measurementOr dered By: Alisha Piña on 08-25-2024 CO2 [Moles/Vol] 29.0 mmol/L 21.0-32.0 [facility] Chloride measurementOrdered By: Alisha Piña on 08-25-2024 Chloride [Moles/Vol] 103 mmol/L 98-107 [facility] Comprehensive Metabolic Prof ilon 08-25-2024 Albumin [Mass/Vol] 3.6 g/dL Normal 3.2-5.0 [facility] Comment on above: Performed By: #### L 101.9900, L500.4050, L501.6710, L100.0100 #### [facility] [address] [place], [address] Albumin/Globulin [Mass ratio] 1.0 {ratio} Normal 0.9-2.4 [facility] Comment on above: Performed By: #### L 101.9900, L500.4050, L501.6710, L100.0100 #### [facility] [address] [place], [address] ALK P 86 U/L Normal 45-117 [facility] Comment on above: Performed By: #### L 101.9900, L500.4050, L501.6710, L100.0100 #### [facility] [address] [place], [address] ALT [Catalytic activity/Vol] 25 U/L Normal 13-56 [facility] Comment on above: Performed By: #### L 101.9900, L500.4050, L501.6710, L100.0100 #### [facility] [address] [place], [address] AST [Catalytic activity/Vol] 24 U/L Normal 15-37 [facility] Comment on above: Performed By: #### L 101.9900, L500.4050, L501.6710, L100.0100 #### [facility] [address] [place], [address] Bilirubin [Mass/Vol] 0.50 mg/dL Normal 0.20-1.00 [facility] Comment on above: Result Comment: For patients on eltrombopag therapy, use of Dimension [place] TBIL is not recommended. Performed By: #### L 101.9900, L500.4050, L501.6710, L100.0100 #### [facility] [address] [place], [address] BUN/CRE 22.3 RATIO High 10-20 [facility] Comment on above: Performed By: #### L 101.9900, L500.4050, L501.6710, L100.0100 #### [facility] [address] [place], [address] CA,Total 8.9 mg/dL Normal 8.5-10.1 [facility] Comment on above: Performed By: #### L 101.9900, L500.4050, L501.6710, L100.0100 #### [facility] [address] [place], [address] Chloride [Moles/Vol] 103 mmol/L Normal 98-107 [facility] Comment on above: Performed By: #### L 101.9900, L500.4050, L501.6710, L100.0100 #### [facility] [address] [place], [address] CO2 [Moles/Vol] 29.0 mmol/L Normal 21.0-32.0 [facility] Comment on above: Performed By: #### L 101.9900, L500.4050, L501.6710, L100.0100 #### [facility] [address] [place], [address] Creatinine [Mass/Vol] 0.99 mg/dL Normal 0.55-1.02 [facility] Comment on above: Result Comment: The validity of the calculated GFR GFRAA in patients over 70 years has not been determined. Clinical correlation is essential. Performed By: #### L 101.9900, L500.4050, L501.6710, L100.0100 #### [facility] [address] [place], [address] EST GFR - AA 72 mL/min Normal >60 [facility] Comment on above: Result Comment: Afri can Dutch GFR Calc Performed By: #### L 101.9900, L500.4050, L501.6710, L100.0100 #### [facility] [address] [place], [address] GAP 7 Normal 5-15 [facility] Comment on above: Performed By: #### L 101.9900, L500.4050, L501.6710, L100.0100 #### [facility] [address] [place], [address] GFR/1.73 sq M.predicted among non-blacks MDRD (S/P/Bld) [Vol rate/Area] 60 mL/min/{1.73_m2} Normal >60 [facility] Comment on above: Result Comment: Non- GFR Calc Performed By: #### L 101.9900, L500.4050, L501.6710, L100.0100 #### [facility] [address] [place], [address] Globulin (S) [Mass/Vol] 3.5 g/dL Normal 2.2-4.2 [facility] Comment on above: Performed By: #### L 101.9900, L500.4050, L501.6710, L100.0100 #### [facility] [address] [place], [address] Glucose [Mass/Vol] 110 mg/dL High 74-106 [facility] Comment on above: Result Comment: Fast ing Glucose result from 100 to 125 mg/dL suggests IMPAIRED HOMEOSTASIS per A.D.A. criteria. Performed By: #### L 101.9900, L500.4050, L501.6710, L100.0100 #### [facility] [address] [place], [address] Potassium [Moles/Vol] 3.6 mmol/L Normal 3.5-5.1 [facility] Comment on above: Performed By: #### L 101.9900, L500.4050, L501.6710, L100.0100 #### [facility] [address] [place], [address] Sodium [Moles/Vol] 139 mmol/L Normal 136-145 [facility] Comment on above: Performed By: #### L 101.9900, L500.4050, L501.6710, L100.0100 #### [facility] [address] [place], [address] T PROT 7.1 g/dL Normal 6.4-8.2 [facility] Comment on above: Performed By: #### L 101.9900, L500.4050, L501.6710, L100.0100 #### [facility] [address] [place], [address] Urea nitrogen [Mass/Vol] 22 mg/dL High 7-18 [facility] Comment on above: Performed By: #### L 101.9900, L500.4050, L501.6710, L100.0100 #### [facility] [address] [place], [address] Eosinophil percentageOrdered By: Alisha Piña on 08-25-2024 Eosinophils/100 WBC (Bld) 0.5 % 0-5 [facility] Erythrocyte Sed Rateon 08-25 SED RATE 6 mm/hr Normal 0-30 [facility] Comment on above: Performed By: #### L 101.9900, L500.4050, L501.6710, L100.0100 #### [facility] [address] [place], [address] Erythrocyte distribution wid th ratioOrdered By: Alisha Piña on 08-25-2024 Erythrocyte distribution width (RBC) [Ratio] 13.2 % 11.6-14.6 [facility] Erythrocyte distribution wid th standard deviationOrdered By: Alisha Piña on 08-25-2024 Erythrocyte distribution width (RBC) [Entitic vol] 47.1 fL High 35.1-43.9 [facility] Erythrocyte sedimentation ra teOrdered By: Alisha Piña on 08-25-2024 ESR (Bld) [Velocity] 6 mm/h 0-30 [facility] Estimated glomerular filtrat ion rate (GFR) AmericanOrdered By: Alisha Piña on 08-25-2024 Estimated GFR (MDRD) Amer 72 mL/min >60 [facility] Comment on above: GFR Calc Glomerular filtration rate ( GFR) estimationOrdered By: Alisha Piña on 08-25-2024 Estimated GFR (MDRD) Non-Af Amer 60 mL/min >60 [facility] Comment on above: Non- GFR Calc Glucose measurementOrdered B y: Alisha Piña on 08-25-2024 Glucose [Mass/Vol] 110 mg/dL High 74-106 [facility] Comment on above: Fasting Glucose resu lt from 100 to 125 mg/dL suggests IMPAIRED HOMEOSTASIS per A.D.A. criteria. Hematocrit Auto (Bld) [Volum e fraction]Ordered By: Alisha Piña on 08-25-2024 Hematocrit (Bld) [Volume fraction] 38.6 % 37-47 [facility] Hemoglobin measurementOrdere d By: Alisha Piña on 08-25-2024 Hemoglobin (Bld) [Mass/Vol] 12.7 g/dL 12.0-15.0 [facility] Immature granulocytes/100 WB C Auto (Bld)Ordered By: Alisha Piña on 08-25-2024 Immature granulocytes/100 WBC (Bld) 0.000 % 0.0-0.9 [facility] Comment on above: IG% - Immature Granu locytes (promyelocytes, myelocytes and metamyelocytes) > 1% indicates that a LEFT SHIFT is Present. Laboratory - Chemistry and C hemistry - challengeOrdered By: Alisha Piña on 08-25-2024 AST [Catalytic activity/Vol] 24 U/L 15-37 [facility] Lymphocytes Auto (Unsp spec) [#/Vol]Ordered By: Alisha Piña on 08-25-2024 Lymphocytes (Bld) [#/Vol] 1.15 10*3/uL 0.83-4.51 [facility] Lymphocytes/100 WBC Auto (Un sp spec)Ordered By: Alisha Piña on 08-25-2024 Lymphocytes/100 WBC (Bld) 27.3 % 19-41 [facility] MCV (mean corpuscular volume ) determinationOrdered By: Alisha Piña on 08-25-2024 MCV (RBC) [Entitic vol] 96.7 fL 81-99 [facility] Mean corpuscular hemoglobin (MCH) determinationOrdered By: Alisha Piña on 08-25-2024 MCH (RBC) [Entitic mass] 31.8 pg 27.0-32.0 [facility] Mean corpuscular hemoglobin concentration (MCHC) determinationOrdered By: Alisha Piña on 08-25-2024 MCHC (RBC) [Mass/Vol] 32.9 g/dL 32-36 [facility] Mean platelet volume determi nationOrdered By: Alisha Piña on 08-25-2024 Platelet mean volume (Bld) [Entitic vol] 10.3 fL 6.2-12.0 [facility] Monocyte percentageOrdered B y: Alisha Piña on 08-25-2024 Monocytes/100 WBC (Bld) 12.4 % High 0-10 [facility] Neutrophil percentageOrdered By: Alisha Piña on 08-25-2024 Neutrophils/100 WBC (Bld) 59.6 % 47-70 [facility] Nucleated red blood cell per centageOrdered By: Alisha Piña on 08-25-2024 Nucleated RBC/100 WBC (Bld) [Ratio] 0 % 0-5 [facility] Platelet countOrdered By: Thai Piña on 08-25-2024 Platelets (Bld) [#/Vol] 224 10*3/uL 150-450 [facility] Potassium measurementOrdered By: Alisha Piña on 08-25-2024 Potassium [Moles/Vol] 3.6 mmol/L 3.5-5.1 [facility] RBC Auto (Bld) [#/Vol]Ordere d By: Alisha Piña on 08-25-2024 RBC (Bld) [#/Vol] 3.99 10*6/uL Low 4.2-5.4 [facility] Serum anion gap measurementO rdered By: Alisha Piña on 08-25-2024 Anion gap [Moles/Vol] 7 mmol/L 5-15 [facility] Serum globulin measurementOr dered By: Alisha Piña on 08-25-2024 Globulin (S) [Mass/Vol] 3.5 g/dL 2.2-4.2 [facility] Serum or plasma alanine jay otransferase (ALT) measurementOrdered By: Alisha Piña on 08-25-2024 ALT [Catalytic activity/Vol] 25 U/L 13-56 [facility] Serum or plasma albumin reyes urement (mass/volume)Ordered By: Alisha Piña on 08-25-2024 Albumin [Mass/Vol] 3.6 g/dL 3.2-5.0 [facility] Serum or plasma alkaline mejia sphatase measurementOrdered By: Alisha Piña on 08-25-2024 ALP [Catalytic activity/Vol] 86 U/L 45-117 [facility] Serum or plasma calcium reyes urement (mass/volume)Ordered By: Alisha Piña on 08-25-2024 Calcium [Mass/Vol] 8.9 mg/dL 8.5-10.1 [facility] Serum or plasma creatinine m easurement (mass/volume)Ordered By: Alisha Piña on 08-25-2024 Creatinine [Mass/Vol] 0.99 mg/dL 0.55-1.02 [facility] Comment on above: The validity of the calculated GFR & GFRAA in patients over 70 years has not been determined. Clinical correlation is essential. Serum or plasma urea nitroge n measurement (mass/volume)Ordered By: Alisha Piña on 08-25-2024 Urea nitrogen [Mass/Vol] 22 mg/dL High 7-18 [facility] Sodium levelOrdered By: Christopher Piña on 08-25-2024 Sodium [Moles/Vol] 139 mmol/L 136-145 [facility] Total proteinOrdered By: João Piña on 08-25-2024 Protein [Mass/Vol] 7.1 g/dL 6.4-8.2 [facility] White blood cell (WBC) count Ordered By: Alisha Piña on 08-25-2024 WBC (Bld) [#/Vol] 4.2 10*3/uL Low 4.4-11.0 [facility] Gastroenterology Visit Repor ton 08-10-2024 Gastroenterology Visit Report [facility] [address] [place] [address] OFFICE VISIT Date of Service: 08/10/24 MR#: [id number] Acct: [id number] Name: CLARIBEL FIELDS Rep #: [id number] : 1955 Provider: Levi Mercado DO Age/Sex: 69/F Location[place] [facility] [place] [facility] [place] Status: Signed Intake Vital Signs 04/23/24 10:38 08/10/24 13:11 Height 5 ft 3 in 5 ft 3 in Weight: 101 lb 6 oz 105 lb BMI 17.9 18.6 Intake Visit Reasons: 3 M FU Chief Complaint: abdominal pain Allergies codeine Adverse Reaction (Verified 02/19/23 11:09) Nausea Medications ???Medication ???Instructions ???Recorded ???Confirmed ???Type haivnl-oqcvecwd-vctjsuq 1 cap PO TID #90 caps 01/24/23 08/10/24 Rx 25,000-79,000-105,000 unit capsule,delayed rel (Zenpep) ascorbic acid (vitamin C) 1,000 mg 1 g PO Q6H #30 caps 02/19/23 08/10/24 Rx capsule cholecalciferol (vitamin D3) 1,250 1,250 mcg PO QMONTH #1 cap 02/19/23 08/10/24 Rx mcg (50,000 unit) capsule mirtazapine 30 mg tablet 30 mg PO QHS #30 tabs 04/23/24 08/10/24 Rx pantoprazole 40 mg tablet,delayed 40 mg PO QDAY 08/10/24 08/10/24 History release Have you fallen in the past year?: No PFSH Medical History Wears dentures Wears glasses Post-menopausal Kidney stone Back pain Injury of head and neck Difficulty swallowing Smoker History of edema Hx of cyst of breast GERD (gastroesophageal reflux disease) Surgical History Hx of ovarian cystectomy Social History Smoking Status: Current some day smoker tobacco type: cigarettes HPI HPI Chief Complaint: abdominal pain Details: CLARIBEL FIELDS, is a 69 F who presents to the office today for follow up. [facility] ed 11.12.22 with abdominal pain, N/V with remote establishment with GI. Workup without acute concern and discharged with bentyl and antiemetics. ? CT abd/pel 11.12.22 adrenal adenoma 1cm; tiny layering gallstones of gallbladder. *BGI established 12.11.22 with intermittent presentation of abdominal pain lasting hours to days with associated N/V. Loose stools not associated with abd pain also a problem. ? Biochemical CBC, ESR, CMP, LFT, CRP, LDH, TSH, MILLIE comp (PLASTERER MAINTENANCE H1.3), ASM, AMA, celiac (IgA L85) without pertinent abnormality. ? apANCA H1:320, ? Stool fats, calprotectin, lactoferrin WNL.? Elastase L144 ? US RUQ 12.19.22 hepatic measurement 14.9cm. ? Biochemical 12.19.22 IgG, celiac (IgA L) IgG4 L1, IgA L79, IgE L5 ? EGD and colonoscopy 01.30.23 EGD LA Grade A esophagitis; small hiatal hernia; duodenitis with ulcerations. ? Colonoscopy five sessile TA polyps; congested mucosa; diverticulosis; severe stenosis at hepatic flexure, traversed without path changes. Contact 02.10.23 with ongoing symptoms. Would like to avoid medications at this time; has started Ensure which she finds helpful OV 02.19.23 with ongoing concern regarding weight loss, currently 95lbs with recent appetite increase. Abdominal cramping is an issue but loose stools have resolved. ? Biochemical CMP (t.bili H1.1), LFT, Vit B12, Vit D1,25, celiac (IgA L), IBD, MPO, PR3 without pertinent abnormality ? PLASTERER MAINTENANCE H1.3? RAST Class I beef; Class II cow???s milk Contact 02.28.23 She is already been referred to see rheumatology. ? Biochemical HLA celiac WNL Contact 04.21.23 she has not started PERT as her daughter does not want her to take it and has not eliminated food sensitivities. Contact 07.15.23 reporting rfid systems architect visit who thinks she has SMA. ? CT abd/pel 07.29.23 hepatic cyst; hepatomegaly versus Gregoria???s lobe. No celiac/mesenteric artery abnormality. OV 08.01.23 continues to lose weight reports current weight 92lbs. she weighed 102lbs. In the last four months she has lost 5lbs. Continues to have nausea and early satiety, headaches. No intense abdominal pain. Zofran effective. Reports marijuana use 3-4 times a day, every day since age [age] years old. OV 01.06.24 pt reports continued symptoms from previous visit. pt reports 2-3 bm per day; denies blood in the stool. Pt continues with Zenpep. OV 04.23.24 pt reports that she is feeling better and has gained 10lbs since LV. (more content not included)... Normal [facility] Gastroenterology Visit Repor ton 04-23-2024 Gastroenterology Visit Report [facility] [address] [place] [address] OFFICE VISIT Date of Service: 04/23/24 MR#: [id number] Acct: [id number] Name: CLARIBEL FIELDS Rep #: [id number] : 1955 Provider: Levi Mercado DO Age/Sex: 68/F Location: [facility] [place] [facility] [place] Status: Signed Intake Vital Signs 01/06/24 10:19 04/23/24 10:38 Height 5 ft 3 in 5 ft 3 in Weight: 91 lb 6 oz 101 lb 6 oz BMI 16.2 17.9 Intake Visit Reasons: 3 M FU Chief Complaint: abdominal pain Allergies codeine Adverse Reaction (Verified 02/19/23 11:09) Nausea Medications ???Medication ???Instructions ???Recorded ???Confirmed ???Type btnaso-mghrrksu-ynfxvlj 1 cap PO TID #90 caps 01/24/23 04/23/24 Rx 25,000-79,000-105,000 unit capsule,delayed rel (Zenpep) ascorbic acid (vitamin C) 1,000 mg 1 g PO Q6H #30 caps 02/19/23 04/23/24 Rx capsule cholecalciferol (vitamin D3) 1,250 1,250 mcg PO QMONTH #1 cap 02/19/23 04/23/24 Rx mcg (50,000 unit) capsule mirtazapine 30 mg tablet 30 mg PO QHS #30 tabs 04/23/24 04/23/24 Rx prednisone 20 mg tablet 20 mg PO HS #30 tabs 04/23/24 04/23/24 Rx Have you fallen in the past year?: No PFSH Medical History Back pain Difficulty swallowing GERD (gastroesophageal reflux disease) History of edema Hx of cyst of breast Injury of head and neck Kidney stone Post-menopausal Smoker Wears dentures Wears glasses Surgical History Hx of ovarian cystectomy Social History Smoking Status: Current some day smoker tobacco type: cigarettes HPI HPI Chief Complaint: abdominal pain Details: CLARIBEL FIELDS, is a 68 F who presents to the office today for follow up. [facility] ed 11.12.22 with abdominal pain, N/V with remote establishment with GI. Workup without acute concern and discharged with bentyl and antiemetics. ? CT abd/pel 11.12.22 adrenal adenoma 1cm; tiny layering gallstones of gallbladder. *BGI established 12.11.22 with intermittent presentation of abdominal pain lasting hours to days with associated N/V. Loose stools not associated with abd pain also a problem. ? Biochemical CBC, ESR, CMP, LFT, CRP, LDH, TSH, MILLIE comp (PLASTERER MAINTENANCE H1.3), ASM, AMA, celiac (IgA L85) without pertinent abnormality. ? apANCA H1:320, ? Stool fats, calprotectin, lactoferrin WNL.? Elastase L144 ? US RUQ 12.19.22 hepatic measurement 14.9cm. ? Biochemical 12.19.22 IgG, celiac (IgA L) IgG4 L1, IgA L79, IgE L5 ? EGD and colonoscopy 01.30.23 EGD LA Grade A esophagitis; small hiatal hernia; duodenitis with ulcerations. ? Colonoscopy five sessile TA polyps; congested mucosa; diverticulosis; severe stenosis at hepatic flexure, traversed without path changes. Contact 02.10.23 with ongoing symptoms. Would like to avoid medications at this time; has started Ensure which she finds helpful OV 02.19.23 with ongoing concern regarding weight loss, currently 95lbs with recent appetite increase. Abdominal cramping is an issue but loose stools have resolved. ? Biochemical CMP (t.bili H1.1), LFT, Vit B12, Vit D1,25, celiac (IgA L), IBD, MPO, PR3 without pertinent abnormality ? PLASTERER MAINTENANCE H1.3? RAST Class I beef; Class II cow???s milk Contact 02.28.23 She is already been referred to see rheumatology. ? Biochemical HLA celiac WNL Contact 04.21.23 she has not started PERT as her daughter does not want her to take it and has not eliminated food sensitivities. Contact 07.15.23 reporting rfid systems architect visit who thinks she has SMA. ? CT abd/pel 07.29.23 hepatic cyst; hepatomegaly versus Gregoria???s lobe. No celiac/mesenteric artery abnormality. OV 08.01.23 continues to lose weight reports current weight 92lbs. she weighed 102lbs. In the last four months she has lost 5lbs. Continues to have nausea and early satiety, headaches. No int ense abdominal pain. Zofran effective. Reports marijuana use 3-4 times a day, every day since age [age] years old. OV 01.06.24 pt reports continued symptoms from previous visit. pt reports 2-3 bm per day; denies blood in the stool. Pt continues with Zenpep. OV 9.27.24 pt reports that she is feeling better and has gained 10lbs since LV. Pt is drinking 3 (more content not included)... Normal [facility] CBC W/Diff, Automatedon 06-07 28-2023 Absolute Lymph 1.90 X10 3/uL Normal 0.83-4.51 [facility] Comment on above: Performed By: #### L 100.0100, L500.4050, L101.9900, L501.6710 ####[facility] [address] [place], [address] Absolute Neut 3.2 X10 3/uL Normal 2.0-7.7 [facility] Comment on above: Performed By: #### L 100.0100, L500.4050, L101.9900, L501.6710 ####[facility] [address] [place], [address] Basophils/100 WBC (Bld) 0.4 % Normal 0-1 [facility] Comment on above: Performed By: #### L 100.0100, L500.4050, L101.9900, L501.6710 ####[facility] [address] [place], [address] Eosinophils/100 WBC (Bld) 0.9 % Normal 0-5 [facility] Comment on above: Performed By: #### L 100.0100, L500.4050, L101.9900, L501.6710 ####[facility] [address] [place], [address] Erythrocyte distribution width (RBC) [Ratio] 13.6 % Normal 11.6-14.6 [facility] Comment on above: Performed By: #### L 100.0100, L500.4050, L101.9900, L501.6710 ####[facility] [address] [place], [address] Hematocrit (Bld) [Volume fraction] 40.3 % Normal 37-47 [facility] Comment on above: Performed By: #### L 100.0100, L500.4050, L101.9900, L501.6710 ####[facility] [address] [place], [address] Hemoglobin (Bld) [Mass/Vol] 13.2 g/dL Normal 12.0-15.0 [facility] Comment on above: Performed By: #### L 100.0100, L500.4050, L101.9900, L501.6710 ####[facility] [address] [place], [address] IG% 0.000 Normal 0.0-0.9 [facility] Comment on above: Result Comment: IG% - Immature Granulocytes (promyelocytes, myelocytes and metamyelocytes) > 1% indicates that a LEFT SHIFT is Present. Performed By: #### L 100.0100, L500.4050, L101.9900, L501.6710 ####[facility] [address] [place], [address] Lymphocytes/100 WBC (Bld) 34.1 % Normal 19-41 [facility] Comment on above: Performed By: #### L 100.0100, L500.4050, L101.9900, L501.6710 ####[facility] [address] [place], [address] MCH (RBC) [Entitic mass] 31.4 pg Normal 27.0-32.0 [facility] Comment on above: Performed By: #### L 100.0100, L500.4050, L101.9900, L501.6710 ####[facility] [address] [place], [address] MCHC (RBC) [Mass/Vol] 32.8 g/dL Normal 32-36 [facility] Comment on above: Performed By: #### L 100.0100, L500.4050, L101.9900, L501.6710 ####[facility] [address] [place], [address] MCV (RBC) [Entitic vol] 96.0 fL Normal 81-99 [facility] Comment on above: Performed By: #### L 100.0100, L500.4050, L101.9900, L501.6710 ####[facility] [address] [place], [address] Monocytes/100 WBC (Bld) 7.9 % Normal 0-10 [facility] Comment on above: Performed By: #### L 100.0100, L500.4050, L101.9900, L501.6710 ####[facility] [address] [place], [address] Neutrophils/100 WBC (Bld) 56.7 % Normal 47-70 [facility] Comment on above: Performed By: #### L 100.0100, L500.4050, L101.9900, L501.6710 ####[facility] [address] [place], [address] Nucleated RBC (Bld) [#/Vol] 0 10*3/uL Normal 0-5 [facility] Comment on above: Performed By: #### L 100.0100, L500.4050, L101.9900, L501.6710 ####[facility] [address] [place], [address] Platelet mean volume (Bld) [Entitic vol] 9.3 fL Normal 6.2-12.0 [facility] Comment on above: Performed By: #### L 100.0100, L500.4050, L101.9900, L501.6710 ####[facility] [address] [place], [address] Platelets (Bld) [#/Vol] 205 10*3/uL Normal 150-450 [facility] Comment on above: Performed By: #### L 100.0100, L500.4050, L101.9900, L501.6710 ####[facility] [address] [place], [address] RBC (Bld) [#/Vol] 4.20 10*6/uL Normal 4.2-5.4 [facility] Comment on above: Performed By: #### L 100.0100, L500.4050, L101.9900, L501.6710 ####[facility] [address] [place], [address] RDW SD 48.2 fl High 35.1-43.9 [facility] Comment on above: Performed By: #### L 100.0100, L500.4050, L101.9900, L501.6710 ####[facility] [address] [place], [address] WBC (Bld) [#/Vol] 5.6 10*3/uL Normal 4.4-11.0 [facility] Comment on above: Performed By: #### L 100.0100, L500.4050, L101.9900, L501.6710 ####[facility] [address] [place], [address] CRPon 01-06-2024 C-REACTIVE PROT < 2.90 Normal 0.0-3.0 [facility] Comment on above: Result Comment: C-Re active Protein (CRP) provides useful information for the diagnosis, therapy and monitoring of inflammatory processes and associated diseases. For the evaluation of Relative Risk for Cardiovascular Disease, a High Sensitivity CRP (HSCRP) should be ordered. Performed By: #### L 100.0100, L500.4050, L101.9900, L501.6710 ####[facility] [address] [place], [address] Comprehensive Metabolic Prof domi 01-06-2024 Albumin [Mass/Vol] 4.1 g/dL Normal 3.2-5.0 [facility] Comment on above: Performed By: #### L 100.0100, L500.4050, L101.9900, L501.6710 ####[facility] [address] [place], [address] Albumin/Globulin [Mass ratio] 1.3 {ratio} Normal 0.9-2.4 [facility] Comment on above: Performed By: #### L 100.0100, L500.4050, L101.9900, L501.6710 ####[facility] [address] [place], [address] ALK P 80 U/L Normal 45-117 [facility] Comment on above: Performed By: #### L 100.0100, L500.4050, L101.9900, L501.6710 ####[facility] [address] [place], [address] ALT [Catalytic activity/Vol] 25 U/L Normal 13-56 [facility] Comment on above: Performed By: #### L 100.0100, L500.4050, L101.9900, L501.6710 ####[facility] [address] [place], [address] AST [Catalytic activity/Vol] 25 U/L Normal 15-37 [facility] Comment on above: Performed By: #### L 100.0100, L500.4050, L101.9900, L501.6710 ####[facility] [address] [place], [address] Bilirubin [Mass/Vol] 0.60 mg/dL Normal 0.20-1.00 [facility] Comment on above: Result Comment: For patients on eltrombopag therapy, use of Dimension [place] TBIL is not recommended. Performed By: #### L 100.0100, L500.4050, L101.9900, L501.6710 ####[facility] [address] [place], [address] BUN/CRE 19.4 RATIO Normal 10-20 [facility] Comment on above: Performed By: #### L 100.0100, L500.4050, L101.9900, L501.6710 ####[facility] [address] [place], [address] CA,Total 9.1 mg/dL Normal 8.5-10.1 [facility] Comment on above: Performed By: #### L 100.0100, L500.4050, L101.9900, L501.6710 ####[facility] [address] [place], [address] Chloride [Moles/Vol] 105 mmol/L Normal 98-107 [facility] Comment on above: Performed By: #### L 100.0100, L500.4050, L101.9900, L501.6710 ####[facility] [address] [place], [address] CO2 [Moles/Vol] 27.0 mmol/L Normal 21.0-32.0 [facility] Comment on above: Performed By: #### L 100.0100, L500.4050, L101.9900, L501.6710 ####[facility] [address] [place], [address] Creatinine [Mass/Vol] 0.88 mg/dL Normal 0.55-1.02 [facility] Comment on above: Result Comment: The validity of the calculated GFR GFRAA in patients over 70 years has not been determined. Clinical correlation is essential. Performed By: #### L 100.0100, L500.4050, L101.9900, L501.6710 ####[facility] [address] [place], [address] EST GFR - AA 83 mL/min Normal >60 [facility] Comment on above: Result Comment: Afri can Dutch GFR Calc Performed By: #### L 100.0100, L500.4050, L101.9900, L501.6710 ####[facility] [address] [place], [address] GAP 5 Normal 5-15 [facility] Comment on above: Performed By: #### L 100.0100, L500.4050, L101.9900, L501.6710 ####[facility] [address] [place], [address] GFR/1.73 sq M.predicted among non-blacks MDRD (S/P/Bld) [Vol rate/Area] 69 mL/min/{1.73_m2} Normal >60 [facility] Comment on above: Result Comment: Non- GFR Calc Performed By: #### L 100.0100, L500.4050, L101.9900, L501.6710 ####[facility] [address] [place], [address] Globulin (S) [Mass/Vol] 3.1 g/dL Normal 2.2-4.2 [facility] Comment on above: Performed By: #### L 100.0100, L500.4050, L101.9900, L501.6710 ####[facility] [address] [place], [address] Glucose [Mass/Vol] 96 mg/dL Normal 74-106 [facility] Comment on above: Performed By: #### L 100.0100, L500.4050, L101.9900, L501.6710 ####[facility] [address] [place], [address] Potassium [Moles/Vol] 3.7 mmol/L Normal 3.5-5.1 [facility] Comment on above: Performed By: #### L 100.0100, L500.4050, L101.9900, L501.6710 ####[facility] [address] [place], [address] Sodium [Moles/Vol] 137 mmol/L Normal 136-145 [facility] Comment on above: Performed By: #### L 100.0100, L500.4050, L101.9900, L501.6710 ####[facility] [address] [place], [address] T PROT 7.2 g/dL Normal 6.4-8.2 [facility] Comment on above: Performed By: #### L 100.0100, L500.4050, L101.9900, L501.6710 ####[facility] [address] [place], [address] Urea nitrogen [Mass/Vol] 17 mg/dL Normal 7-18 [facility] Comment on above: Performed By: #### L 100.0100, L500.4050, L101.9900, L501.6710 ####[facility] [address] [place], [address] Erythrocyte Sed Rateon 01-05 SED RATE 2 mm/hr Normal 0-30 [facility] Comment on above: Performed By: #### L 100.0100, L500.4050, L101.9900, L501.6710 ####[facility] [address] [place], [address] Gastroenterology Visit Repor ton 01-06-2024 Gastroenterology Visit Report [facility] [address] [place] [address] OFFICE VISIT Date of Service: 01/06/24 MR#: [id number] Acct: [id number] Name: CLARIBEL FIELDS Rep #: [id number] : 1955 Provider: Levi Mercado, Age/Sex: 68/F Location: [facility] [place] [facility] [place] Status: Signed Intake Vital Signs 02/19/23 11:21 08/01/23 11:34 01/06/24 10:19 Height 5 ft 3 in 5 ft 3 in 5 ft 3 in Weight: 91 lb 6 oz BMI 16.2 Intake Visit Reasons: 5 MO FU Chief Complaint: abdominal pain Allergies codeine Adverse Reaction (Verified 02/19/23 11:09) Nausea Medications ???Medication ???Instructions ???Recorded ???Confirmed ???Type lhrpas-vkeqkqxu-tehrlel 1 cap PO TID #90 caps 01/24/23 01/06/24 Rx 25,000-79,000-105,000 unit capsule,delayed rel (Zenpep) ascorbic acid (vitamin C) 1,000 mg 1 g PO Q6H #30 caps 02/19/23 01/06/24 Rx capsule cholecalciferol (vitamin D3) 1,250 1,250 mcg PO QMONTH #1 cap 02/19/23 01/06/24 Rx mcg (50,000 unit) capsule PFSH Medical History Back pain Difficulty swallowing GERD (gastroesophageal reflux disease) History of edema Hx of cyst of breast Injury of head and neck Kidney stone Post-menopausal Smoker Wears dentures Wears glasses Surgical History Hx of ovarian cystectomy Social History Smoking Status: Current some day smoker tobacco type: cigarettes HPI HPI Chief Complaint: abdominal pain Details: CLARIBEL FIELDS, is a 68 F who presents to the office today for follow up. [facility] ed 11.12.22 with abdominal pain, N/V with remote establishment with GI. Workup without acute concern and discharged with bentyl and antiemetics. ? CT abd/pel 11.12.22 adrenal adenoma 1cm; tiny layering gallstones of gallbladder. *BGI established 12.11.22 with intermittent presentation of abdominal pain lasting hours to days with associated N/V. Loose stools not associated with abd pain also a problem. ? Biochemical CBC, ESR, CMP, LFT, CRP, LDH, TSH, MILLIE comp (PLASTERER MAINTENANCE H1.3), ASM, AMA, celiac (IgA L85) without pertinent abnormality. ? apANCA H1:320, ? Stool fats, calprotectin, lactoferrin WNL.? Elastase L144 ? US RUQ 12.19.22 hepatic measurement 14.9cm. ? Biochemical 12.19.22 IgG, celiac (IgA L) IgG4 L1, IgA L79, IgE L5 ? EGD and colonoscopy 01.30.23 EGD LA Grade A esophagitis; small hiatal hernia; duodenitis with ulcerations. ? Colonoscopy five sessile TA polyps; congested mucosa; diverticulosis; severe stenosis at hepatic flexure, traversed without path changes. Contact 02.10.23 with ongoing symptoms. Would like to avoid medications at this time; has started Ensure which she finds helpful OV 02.19.23 with ongoing concern regarding weight loss, currently 95lbs with recent appetite increase. Abdominal cramping is an issue but loose stools have resolved. ? Biochemical CMP (t.bili H1.1), LFT, Vit B12, Vit D1,25, celiac (IgA L), IBD, MPO, PR3 without pertinent abnormality ? PLASTERER MAINTENANCE H1.3? RAST Class I beef; Class II cow???s milk Contact 02.28.23 She is already been referred to see rheumatology. ? Biochemical HLA celiac WNL Contact 04.21.23 she has not started PERT as her daughter does not want her to take it and has not eliminated food sensitivities. Contact 07.15.23 reporting rfid systems architect visit who thinks she has SMA. ? CT abd/pel 07.29.23 hepatic cyst; hepatomegaly versus Gregoria???s lobe. No celiac/mesenteric artery abnormality. OV 08.01.23 continues to lose weight reports current weight 92lbs. she weighed 102lbs. In the last four months she has lost 5lbs. Continues to have nausea and early satiety, headaches. No intense abdominal pain. Zofran effective. Reports marijuana use 3-4 times a day, every day since age [age] years old. OV 6.11.24 pt reports continued symptoms from previous visit. pt reports 2-3 bm per day; denies blood in the stool. Pt continues with Zenpep. ROS Const Constitutional: Positive for headache(s) and weight change (weight loss); No fatigue or fever(s) ENT ENT: Positive for headache(s); No difficulty swallowing Gastro GI: No abdominal pain, belching, bloating, change in bowel habits, change in s (more content not included)... Normal [facility] Shoulder min 2 Viewson 12-29 Shoulder min 2 Views [facility] Imaging Services [address] [place] [address] Shoulder min 2 Views MR#: [id number] Acct: [id number] Name: CLARIBEL FIELDS Rep #: [id number] : 1955 F 68 From: Jeferson kevin MD PCP: Dr. Sonu Lane MD Status: REG CLI Study: Shoulder min 2 Views Date of Exam: 12/30/23 Exam# [id number] Ordering Dr: Sonu Lane MD [id number] INDICATION: PAIN EXAMINATION/TECHNIQUE: X-RAY - LEFT XR Shoulder Min 2 Views 5 images COMPARISON: No relevant prior comparison study available FINDINGS: SOFT TISSUES: No soft tissue swelling or gas. No radiopaque foreign body. BONES/JOINTS: No acute fracture or subluxation.. Normal alignment. Mild degenerative changes of the glenohumeral and acromioclavicular joints with joint space narrowing.. No sclerotic or destructive changes observed. The visualized ribs are intact. RAD/Shoulder min 2 Views IMPRESSION: No fracture or malalignment. Mild degenerative changes. Electronically Signed: Jeferson Hernandez MD at 14:31 EDT , CC: Dr. 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 Sonu Lane MD Status: REG CLI Study: Wrist 2 Views Date of Exam: 12/30/23 Exam# [id number] Ordering Dr: Sonu Lane MD [id number] INDICATION: PAIN EXAMINATION/TECHNIQUE: X-RAY - LEFT XR Wrist 2 Views 2 VIEWS COMPARISON: No relevant prior comparison study available FINDINGS: SOFT TISSUES: No soft tissue swelling or gas. No radiopaque foreign body. BONES/JOINTS: No acute fracture or subluxation.. The carpal rows are aligned. Degenerative changes are seen at the first carpometacarpal joint with joint space narrowing and osteophytes.. No sclerotic or destructive changes observed. RAD/Wrist 2 Views IMPRESSION: No fracture or malalignment. Degenerative changes of the first carpometacarpal joint. Electronically Signed: Jeferson Hernandez MD at 14:34 EDT , CC: Dr. Sonu Lane MD Cold Roll Packer Sheet Iron: Signed Normal [facility] Basophil percentageOrdered B y: Levi Friend on 07-29-2023 Basophil percentage < 1.0 mg/dL 0.55-1.02 [facility] No Panel InformationOrdered By: Levi Friend on 07-29-2023 Bedside Estimated GFR (eGFR) > 60.0000 mL/min >60 [facility] Absolute lymphocyte countOrd ered By: Alisha Piña on 04-23-2023 Lymphocytes Auto (Unsp spec) [#/Vol] 1.62 10*3/uL 0.83-4.51 [facility] Basophil percentageOrdered B y: Alisha Piña on 04-23-2023 Basophils/100 WBC (Bld) 0.2 % 0-1 [facility] Bilirubin [Mass/Vol] 0.70 mg/dL 0.20-1.00 [facility] Comment on above: For patients on eltr ombopag therapy, use of Dimension [place] TBIL is not recommended. Chloride [Moles/Vol] 107 mmol/L 98-107 [facility] Eosinophils/100 WBC (Bld) 1.4 % 0-5 [facility] Glucose [Mass/Vol] 86 mg/dL 74-106 [facility] Neutrophils (Bld) [#/Vol] 3.1 10*3/uL 2.0-7.7 [facility] Neutrophils/100 WBC (Bld) 59.0 % 47-70 [facility] Potassium [Moles/Vol] 4.2 mmol/L 3.5-5.1 [facility] Protein [Mass/Vol] 7.1 g/dL 6.4-8.2 [facility] Sodium [Moles/Vol] 140 mmol/L 136-145 [facility] WBC (Bld) [#/Vol] 5.2 10*3/uL 4.4-11.0 [facility] Bilirubin Test strip Ql (U)O rdered By: Alisha Piña on 04-23-2023 Bilirubin Ql (U) Negative Negative [facility] Blood erythrocytes count (nu mber/volume)Ordered By: Alisha Piña on 04-23-2023 RBC (Bld) [#/Vol] 4.02 10*6/uL 4.2-5.4 [facility] Blood hemoglobin measurement (mass/volume)Ordered By: Alisha Piña on 04-23-2023 Hemoglobin (Bld) [Mass/Vol] 12.8 g/dL 12.0-15.0 [facility] Blood lymphocytes/100 leukoc ytesOrdered By: Alisha Piña on 04-23-2023 Lymphocytes/100 WBC (Bld) 31.4 % 19-41 [facility] Blood monocytes/100 leukocyt esOrdered By: Alisha Piña on 04-23-2023 Monocytes/100 WBC (Bld) 7.8 % 0-10 [facility] Blood platelet mean volumeOr dered By: Alisha Piña on 04-23-2023 Platelet mean volume (Bld) [Entitic vol] 9.4 fL 6.2-12.0 [facility] Determination of erythrocyte mean corpuscular volume (MCV)Ordered By: Alisha Piña on 04-23-2023 MCV (RBC) [Entitic vol] 98.3 fL 81-99 [facility] Erythrocyte sedimentation ra teOrdered By: Alisha Piña on 04-23-2023 ESR (Bld) [Velocity] 3 mm/h 0-30 [facility] Hematocrit Auto (Bld) [Volum e fraction]Ordered By: Alisha Piña on 04-23-2023 Hematocrit (Bld) [Volume fraction] 39.5 % 37-47 [facility] Ketones Test strip Ql (U)Ord ered By: Alisha Piña on 04-23-2023 Ketones Ql (U) Negative Negative [facility] Laboratory - Chemistry and C hemistry - challengeOrdered By: Alisha Piña on 04-23-2023 ALP [Catalytic activity/Vol] 69 U/L 45-117 [facility] ALT [Catalytic activity/Vol] 24 U/L 13-56 [facility] CO2 [Moles/Vol] 29.0 mmol/L 21.0-32.0 [facility] Globulin (S) [Mass/Vol] 3.2 g/dL 2.2-4.2 [facility] Urea nitrogen/Creatinine [Mass ratio] 21.0 mg/mg 10-20 [facility] - Hematology and Cell countsOrdered By: Alisha Piña on 04-23-2023 Erythrocyte distribution width (RBC) [Entitic vol] 49.4 fL 35.1-43.9 [facility] Erythrocyte distribution width (RBC) [Ratio] 13.6 % 11.6-14.6 [facility] Immature granulocytes/100 WBC (Bld) 0.200 % 0.0-0.9 [facility] Comment on above: IG% - Immature Granu locytes (promyelocytes, myelocytes and metamyelocytes) > 1% indicates that a LEFT SHIFT is Present. MCH (RBC) [Entitic mass] 31.8 pg 27.0-32.0 [facility] Nucleated RBC/100 WBC (Bld) [Ratio] 0 % 0-5 [facility] MCHC Auto (RBC) [Mass/Vol]Or dered By: Alisha Piña on 04-23-2023 MCHC (RBC) [Mass/Vol] 32.4 g/dL 32-36 [facility] Nitrite Test strip Ql (U)Ord ered By: Alisha Piña on 04-23-2023 Nitrite Ql (U) Negative Negative [facility] No Panel InformationOrdered By: Alisha Piña on 04-23-2023 Estimated GFR (MDRD) Amer 85 mL/min >60 [facility] Comment on above: GFR Calc Estimated GFR (MDRD) Non-Af Amer 70 mL/min >60 [facility] Comment on above: Non- GFR Calc Miscellaneous Test Comment MAILED SPECIMEN [facility] Platelets bldOrdered By: João Piña on 04-23-2023 Platelets (Bld) [#/Vol] 228 10*3/uL 150-450 [facility] Protein Test strip Ql (U)Ord ered By: Alisha Piña on 04-23-2023 Protein Ql (U) Negative Negative [facility] Serum or plasma C reactive p rotein measurement (mass/volume)Ordered By: Alisha Piña on 04-23-2023 CRP [Mass/Vol] mg/L 0.0-3.0 [facility] Comment on above: C-Reactive Protein ( CRP) provides useful information for thediagnosis, therapy and monitoring of inflammatory processesand associated diseases. For the evaluation of Relative Riskfor Cardiovascular Disease, a High Sensitivity CRP (HSCRP)should be ordered. Serum or plasma albumin reyes urement (mass/volume)Ordered By: Alisha Piña on 04-23-2023 Albumin [Mass/Vol] 3.9 g/dL 3.2-5.0 [facility] Serum or plasma albumin/glob ulin mass ratioOrdered By: Alisha Piña on 04-23-2023 Albumin/Globulin [Mass ratio] 1.2 {ratio} 0.9-2.4 [facility] Serum or plasma calcium reyes urement (mass/volume)Ordered By: Alisha Piña on 04-23-2023 Calcium [Mass/Vol] 9.4 mg/dL 8.5-10.1 [facility] Serum or plasma creatinine m easurement (mass/volume)Ordered By: Alisha Piña on 04-23-2023 Creatinine [Mass/Vol] 0.86 mg/dL 0.55-1.02 [facility] Comment on above: The validity of the calculated GFR & GFRAA in patients over 70 years has not been determined. Clinical correlation is essential. Serum or plasma urea nitroge n measurement (mass/volume)Ordered By: Alisha Piña on 04-23-2023 Urea nitrogen [Mass/Vol] 18 mg/dL 7-18 [facility] Thin prep Papanicolaou smear with manual screeningOrdered By: Alisha Piña on 04-23-2023 Thin prep Papanicolaou smear with manual screening 20 U/L 15-37 [facility] Thin prep Papanicolaou smear with manual screening 4 5-15 [facility] Urine blood detectionOrdered By: Alisha Piña on 04-23-2023 RBC Ql (U) 10 /ul Negative [facility] Urine clarityOrdered By: João Piña on 04-23-2023 Clarity (U) Clear Clear [facility] Urine color determinationOrd ered By: Alisha Piña on 04-23-2023 Color (U) Yellow Yellow [facility] Urine creatinine measurement (mass/volume)Ordered By: Alisha Piña on 04-23-2023 Creatinine (U) [Mass/Vol] 106.00 mg/dL NO RANGE EST. [facility] Urine glucose detectionOrder ed By: Alisha Piña on 04-23-2023 Glucose Ql (U) Normal mg/dl Normal [facility] Urine leukocyte esterase det ection by dipstickOrdered By: Alisha Piña on 04-23-2023 Leukocyte esterase Test strip Ql (U) Negative Negative [facility] Urine pHOrdered By: Alisha bailey on 04-23-2023 pH (U) 6.5 [pH] 5.0 - 8.0 [facility] Urine protein measurement (m ass/volume)Ordered By: Alisha Piña on 04-23-2023 Protein (U) [Mass/Vol] 10.1 mg/dL 0.0-11.8 [facility] Urine protein/creatinine mas s ratioOrdered By: Alisha Piña on 04-23-2023 Protein/Creatinine (U) [Mass ratio] 95 mg/g CRE 0-200 [facility] Urine specific gravity measu rementOrdered By: Alisha Piña on 04-23-2023 Specific gravity (U) [Rel density] 1.015 1.002-1.030 [facility] Urobilinogen Auto test strip Ql (U)Ordered By: Alisha Piña on 04-23-2023 Urobilinogen Ql (U) 1 mg/dl Normal [facility] Basophil percentageOrdered B y: Levi Friend on 02-19-2023 Basophil percentage < 0.2 AI 0.0-0.9 [facility] Bilirubin [Mass/Vol] 1.10 mg/dL 0.20-1.00 [facility] Comment on above: For patients on eltr ombopag therapy, use of Dimension [place] TBIL is not recommended. Chloride [Moles/Vol] 105 mmol/L 98-107 [facility] Glucose [Mass/Vol] 82 mg/dL 74-106 [facility] Potassium [Moles/Vol] 4.0 mmol/L 3.5-5.1 [facility] Protein [Mass/Vol] 7.5 g/dL 6.4-8.2 [facility] Sodium [Moles/Vol] 139 mmol/L 136-145 [facility] Chocolate RASTOrdered By: Ra garcia Friend on 02-19-2023 Chocolate IgE Qn (S) <0.10 kU/L Class 0 [facility] Comment on above: Performed at: - [facility] [place], [place] [id number] Director: Bj De Leon PhD, Phone: [phone] at: [address] [id number] Director: Tony Ibarra MD, Phone: [phone] HIV 1 and HIV-2 antibody ass ay with HIV-1 p24 antigen detectionOrdered By: Levi Mercado on 02-19-2023 HIV 1+2 Ab+HIV1 p24 Ag IA Ql Non-Reactive Nonreactive [facility] - Chemistry and C hemistry - challengeOrdered By: Levi Mercado on 02-19-2023 ALP [Catalytic activity/Vol] 76 U/L 45-117 [facility] ALT [Catalytic activity/Vol] 28 U/L 13-56 [facility] CO2 [Moles/Vol] 30.0 mmol/L 21.0-32.0 [facility] Cobalamin (Vitamin B12) [Mass/Vol] 620 pg/mL 211-911 [facility] Globulin (S) [Mass/Vol] 3.3 g/dL 2.2-4.2 [facility] Urea nitrogen/Creatinine [Mass ratio] 21.9 mg/mg 10-20 [facility] - Miscellaneous t estsOrdered By: Levi Mercado on 02-19-2023 Service comment (Unsp spec) [Interp] Comment . [facility] Comment on above: Levels of Specific I gE Class Description of Class ----- < 0.10 0 Negative 0.10 - 0.31 0/I Equivocal/Low 0.32 - 0.55 I Low 0.56 - 1.40 II Moderate 1.41 - 3.90 III High 3.91 - 19.00 IV Very High 19.01 - 100.00 V Very High >100.00 Very High No Panel InformationOrdered By: Levi Mercado on 02-19-2023 Centromere B Antibody <0.2 AI 0.0-0.9 [facility] Endomysial IgA Antibody Negative Negative [facility] Estimated GFR (MDRD) Amer 95 mL/min >60 [facility] Comment on above: GFR Calc Estimated GFR (MDRD) Non-Af Amer 79 mL/min >60 [facility] Comment on above: Non- GFR Calc Miscellaneous Test See comment [facility] Comment on above: TEST RESULT LIMITSCe liac HLA Rflx to Abs DQ2 (DQA1 0501/0505,DQB1 02XX) Negative DQ8 (DQA1 03XX, DQB1 0302) Negative Final Results: DQB1*03:01:G,03:01:03 DQA1*03:EENPU,05:EENPV Code Translation: DQB1*03:01:01G 03:01:01:01/03:01:01:02/03:01:01:03 /03:01:01:0403:01:01:0503:01:01:06 03:01:01:0703:01:01:0803:01:01:09 03:01:01:1003:01:01:1103:01:01:12 03:01:01:1403:01:01:1503:01:01:16 03:01:01:1703:01:01:1803:01:01:03:01:01:03:01:01:2103:01:01::01:01:2303:01:01:2403:01:01:25 03:01:01:2603:01:01:2703:01::28 03:01::2903:01::3003:01::31 03:01::3203:01:01:3303:01:01:34 03:01:01:3503:01:01:3603:01:01:37 03:01:01:3803:01:01:3903:01::40 03:01:01:4103:01:01:42/03:01:01:43 /03:01:01:44/03:01:01:45/03:01:01:46 /03:01:01:47/03:01:01:48/03:01:01:49 /03:01:01:50/03:01:01:51/03:01:01:52 /03:01:01:53/03:01:01:54/03:01:01:55 03:01:04:0103:01:04:0203:01:0503:01:09 :01:10:01:05/30:01:12:01::01:20/10:01:25/10:01:3503:01:36 03:01:3903:01:40/03:01:41/03:01:43 /03:01:4403:01:45/03:01:4603:01:47 03:01:5003:01:5103:01:5203:01:54 /03:01:5503:01:56/03:01:57/03:01:58/03:09 /03:19:01:01/03:19:01:02Q/03:19:03 /03:19:04/03:19:05/03:19:06/03:21 /03:22:01:01/03:22:01:02/03:22:02/03:24 /03:29/03:35/03:42/03:49:01:0103:49:01:02 /03:50/03:51/03:84N/03:94/03:115/03:116 /03:164/03:165/03:169/03:182/03:191/03:196 /03:198:01/03:198:02/03:206/03:241/03:243 /03:246/03:253/03:264/03:266/03:276N /03:281/03:284/03:285/03:286/03:288/03:290 /03:292/03:293/03:294/03:297/03:302 /03:309:01/03:309:02/03:312/03:317:01 /03:317:02/03:326/03:328/03:329/03:330 /03:331/03:338N/03:340N/03:342/03:347 /03:350/03:358N/03:360/03:370/03:373 /03:376N/03:377/03:378/03:381/03:385N /03:394/03:396/03:400N/03:401/03:404 /03:419/03:420/03:426/03:428/03:431/03:432 /03:434/03:439/03:448/03:451/03:454/03:458 /03:460/03:465/03:467/03:468/03:469/03:470 /03:472/03:480Q/03:482/03:483/03:485 /03:486/03:496/03:497/03:506/03:508 EENPU 03:02/03:03/03:04/03:08:09:11:14 :1703:20/03:21/:2303:24/03:26/03:28 /03:31/03:32N/03:33/03:34N/03:35/03:37 /03:38 EENPV 05:01/05:05/05:09:11:13/05:14:17N /05:20/:24/05:25/:29Q/05:35/05:39 /05:43/05:44/05:46/05:48/05:50/05:53/05:58 /05:60/05:62The patient is positive for DQA1*05, one half of the KC4ydmhkjvwbyo. The Celiac Disease risk from the HLA DQA/DQBgenotype is approximately 1:1842 (0.05%). This is lessthan the 1% risk in the general population.Allele interpretation for all loci based on IMGT/HLAdatabase version 3.49.0DORITA GROVER ID Number [id number] than 95% of celiac patients are positive for either DQ2 or DQ8 (Jenn and Brian, (1993) Gastroenterology 105:910-922). However these antigens may also be present in patients who do not have Celiac disease.Comment: This test was performed using Polymerase Chain Reaction (PCR) and Sequence Specific Oligonucleotide Probes (SSOP) (AimWith) technique.Sequence Based Typing (SBT) may be used as a supplemental method when necessary.If you have questions, please call [employer] [phone] or email at [email or web address].Additional Information: References:1. Cooper SALCIDO and Derek Cervantes. Celiac Disease. N Eng J Med 2007; 357:0551-0365.2. Megiorni F, Jeffrey B, Bonacheyenneo M et al. HLA-DQ and risk gradient for celiac disease. Hum Immunol 2009; 70:55-59.3. Rocio MM, Roel TC, Rosanna FM et al. Stratifying risk for celiac disease in a large at-risk [facility] population by using HLA alleles. Clin Gastroenterol Hepatol 2009; 7:966-971.4. Jenn GAYTAN and Brittany SCOTT. (2005). Celiac Disease Genetics: Current Concepts and Practical Applications. Clin Gastroenterol and Hepat 3:843-851.5. Denae CL, Declan DO, Cooper SALCIDO, et al. Celiac Disease. In: [place] RA, Alfred TC, Chuck CR, Oly K, editors. JonesIntooBRamanda Farmainstant), [facility], [place], January 28, 2008:1-27. http://www.ncbi.nlm.nih.gov/pramod/br.fcgi? book=genepart=celiac PMID [id number] (PubMed)6. Vanessa Briscoe. Emerging concepts in celiac disease. Curr Opin Pediatr 2004;16:552-559.Reflex to Celiac Ab Testing Not indicated. [facility] ORIGINAL REPORT ON FILE IN LAB CONTAINS ADDITIONAL TEST SITE INFORMATION. PLASTERER MAINTENANCE Antibody 1.3 AI 0.0-0.9 [facility] Scallop Allergen <0.10 kU/L Class 0 [facility] Seafood Group Allergens (RAST) Negative . [facility] Comment on above: Allergens in this mi x are: Blue mussel Fish [place] Shrimp Tuna Sesame Seed Allergen IgE Antibody <0.10 kU/L Class 0 [facility] Shrimp Allergen <0.10 kU/L Class 0 [facility] Serum DNA double strand anti body assay (units/volume)Ordered By: Levi Mercado on 02-19-2023 DNA double strand Ab Qn (S) [IU]/mL 0-9 [facility] Comment on above: Negative <5 Equivoca l 5 - 9 Positive >9 Serum IgA measurement (units /volume)Ordered By: Levi Mercado on 02-19-2023 IgA Qn (S) 80 mg/dL 87-352 [facility] Serum Anisha-1 antibody assay (u nits/volume)Ordered By: Levi Mercado on 02-19-2023 Anisha-1 extractable nuclear Ab Qn (S) <0.2 AI 0.0-0.9 [facility] Serum Scl-70 extractable nuc lear antibody assay (units/volume)Ordered By: Levi Mercado on 02-19-2023 SCL-70 extractable nuclear Ab Qn (S) <0.2 AI 0.0-0.9 [facility] Serum Burgos extractable nucl ear antibody detectionOrdered By: Levi Mercado on 02-19-2023 Burgos extractable nuclear Ab Ql (S) <0.2 AI 0.0-0.9 [facility] Serum beef IgE antibody assa y (units/volume)Ordered By: Levi Mercado on 02-19-2023 Beef IgE Qn (S) 0.17 kU/L Class 0/I [facility] Serum black walnut IgE antib rin assay (units/volume)Ordered By: Levi Mercado on 02-19-2023 Black Almond IgE Qn (S) <0.10 kU/L Class 0 [facility] Serum clam IgE antibody assa y (units/volume)Ordered By: Levi Mercado on 02-19-2023 Clam IgE Qn (S) <0.10 kU/L Class 0 [facility] Serum codfish IgE antibody a ssay (units/volume)Ordered By: Levi Mercado on 02-19-2023 Codfish IgE Qn (S) <0.10 kU/L Class 0 [facility] Serum corn IgE antibody assa y (units/volume)Ordered By: Levi Mercado on 02-19-2023 [place] IgE Qn (S) <0.10 kU/L Class 0 [facility] Serum cow milk IgE antibody assay (units/volume)Ordered By: Levi Mercado on 02-19-2023 Cow milk IgE Qn (S) 0.80 kU/L Class II [facility] Serum egg white IgE antibody assay (units/volume)Ordered By: Levi Mercado on 02-19-2023 Egg white IgE Qn (S) <0.10 kU/L Class 0 [facility] Serum or plasma albumin reyes urement (mass/volume)Ordered By: Levi Mercado on 02-19-2023 Albumin [Mass/Vol] 4.2 g/dL 3.2-5.0 [facility] Serum or plasma albumin/glob ulin mass ratioOrdered By: Levi Mercado on 02-19-2023 Albumin/Globulin [Mass ratio] 1.3 {ratio} 0.9-2.4 [facility] Serum or plasma calcitriol m easurement (mass/volume)Ordered By: Levi Mercado on 02-19-2023 1,25-dihydroxyvitamin D3 [Mass/Vol] 57.0 pg/mL 24.8-81.5 [facility] Serum or plasma calcium reyes urement (mass/volume)Ordered By: Levi Mercado on 02-19-2023 Calcium [Mass/Vol] 9.4 mg/dL 8.5-10.1 [facility] Serum or plasma creatinine m easurement (mass/volume)Ordered By: Levi Mercado on 02-19-2023 Creatinine [Mass/Vol] 0.78 mg/dL 0.55-1.02 [facility] Comment on above: The validity of the calculated GFR & GFRAA in patients over 70 years has not been determined. Clinical correlation is essential. Serum or plasma urea nitroge n measurement (mass/volume)Ordered By: Levi Mercado on 02-19-2023 Urea nitrogen [Mass/Vol] 17 mg/dL 7-18 [facility] Serum peanut IgE antibody as say (units/volume)Ordered By: Levi Mercado on 02-19-2023 Peanut IgE Qn (S) <0.10 kU/L Class 0 [facility] Serum pork IgE antibody assa y (units/volume)Ordered By: Levi Mercado on 02-19-2023 Pork IgE Qn (S) <0.10 kU/L Class 0 [facility] Serum soybean IgE antibody a ssay (units/volume)Ordered By: Levi Mercado on 02-19-2023 Soybean IgE Qn (S) <0.10 kU/L Class 0 [facility] Serum tissue transglutaminas e IgA antibody assay (units/volume)Ordered By: Levi Mercado on 02-19-2023 tTG IgA Qn (S) <2 U/mL 0-3 [facility] Comment on above: Negative 0 - 3 Weak Positive 4 - 10 Positive >10 Tissue Transglutaminase (tTG) has been identified as the endomysial antigen. Studies have demonstr- ated that endomysial IgA antibodies have over 99% specificity for gluten sensitive enteropathy. Serum wheat IgE antibody ass ay (units/volume)Ordered By: Levi Mercado on 02-19-2023 Wheat IgE Qn (S) <0.10 kU/L Class 0 [facility] Serum whole egg IgE antibody assay (units/volume)Ordered By: Levi Mercado on 02-19-2023 Whole Egg IgE Qn (S) <0.10 kU/L Class 0 [facility] Thin prep Papanicolaou smear with manual screeningOrdered By: Lvei Friend on 02-19-2023 Thin prep Papanicolaou smear with manual screening 26 U/L 15-37 [facility] Thin prep Papanicolaou smear with manual screening 4 5-15 [facility] No Panel InformationOrdered By: Levi Friend on 02-12-2023 Miscellaneous Test See comment [facility] Comment on above: TEST RESULT LIMITSMy eloperoxidase (MPO), 378 pmol/L 0-469 Low CVD Risk <470 Moderate Risk 470 - 539 High Risk >539 [facility] ORIGINAL REPORT ON FILE IN LAB CONTAINS ADDITIONAL TEST SITE INFORMATION. TEST RESULTS LIMITS Anti-PR3 Antibodies < 0.2 units 0.0-0.9 [facility] ORIGINAL REPORT ON FILE IN LAB CONTAINS ADDITIONAL TEST SITE INFORMATION. No Panel InformationOrdered By: Helen Jeff on 12-19-2022 Immunoglobulin E 5 IU/mL 6-495 [facility] Immunoglobulin G4 1 mg/dL 2-96 [facility] Miscellaneous Test See comment [facility] Comment on above: TEST RESULTS LIMITSI BD Expanded PanelgASCA 5 units 0-50 Negative <45 Equivocal 45 - 50 Positive >50ACCA 20 units 0-90 Negative <80 Equivocal 80 - 90 Positive >90ALCA 4 units 0-60 Negative <55 Equivocal 55 - 60 Positive >60AMCA 36 units 0-100 Negative < 90 Equivocal 90 - 100 Positive >100 This test was developed and its performance characteristics determined by [facility]. It has not been cleared or approved by the Food and Drug Administration. The FDA has determined that such clearance or approval is not necessary.Atypical pANCA Positive Abnormal NegativeComments AbnormalSuggestive of Ulcerative Colitis. TESTING PERFORMED AT [facility]. ORIGINAL REPORT ON FILE IN LAB CONTAINS ADDITIONAL TEST SITE INFORMATION. Tissue Transglutaminase IgG Ab <2 U/mL 0-5 [facility] Comment on above: Negative 0 - 5 Weak Positive 6 - 9 Positive >9Performed at: [address] [id number] Director: Bj De Leon PhD, Phone: [phone] at: [address] [id number] Director: Tony Ibarra MD, Phone: [phone] Stool Calprotectin 9 ug/g 0-120 [facility] Comment on above: Concentration Interp retation Follow-Up< 5 - 50 ug/g Normal None>50 -120 ug/g Borderline Re-evaluate in 4-6 weeks >120 ug/g Abnormal Repeat as clinically indicatedPerformed at: [facility] [id number] Director: Bj De Leon PhD, Phone: [phone] at: [address] [id number] Director: Tony Ibarra MD, Phone: [phone] Stool Neutral Fats Normal . [facility] Comment on above: Normal (<60 Droplets /HPF) Stool Pancreatic Elastase 144 >200 [facility] Comment on above: Result Units: ug [address] st./g Severe Pancreatic Insufficiency: <100 Moderate Pancreatic Insufficiency: 100 - 200 Normal: >200Performed at: - [facility] [address] [id number] Director: Tony Ibarra MD, Phone: [phone] Qualitative fecal fat or lip idsOrdered By: Helen Jeff on 12-19-2022 Fat Ql (Stl) Normal . [facility] Comment on above: Normal (<100 Droplet s/HPF) Serum IgG subclass 1 measure ment (mass/volume)Ordered By: Helen Jeff on 12-19-2022 IgG subclass 1 (S) [Mass/Vol] 663 mg/dL 248-810 [facility] Serum IgG subclass 2 measure ment (mass/volume)Ordered By: Helen Jeff on 12-19-2022 IgG subclass 2 (S) [Mass/Vol] 156 mg/dL 130-555 [facility] Serum IgG subclass 3 measure ment (mass/volume)Ordered By: Helen Jeff on 12-19-2022 IgG subclass 3 (S) [Mass/Vol] 59 mg/dL 15-102 [facility] Serum or plasma IgA measurem ent (mass/volume)Ordered By: Helen Jeff on 12-19-2022 IgA [Mass/Vol] 79 mg/dL 87-352 [facility] Serum or plasma IgG measurem ent (mass/volume)Ordered By: Helen Jeff on 12-19-2022 IgG [Mass/Vol] 961 mg/dL [facility] Serum or plasma IgM measurem ent (mass/volume)Ordered By: Helen Jeff on 12-19-2022 IgM [Mass/Vol] 157 mg/dL 26-217 [facility] Stool lactoferrin detection by immunoassayOrdered By: Helen Jeff on 12-19-2022 Lactoferrin IA Ql (Stl) [facility] Lactoferrin IA Ql (Stl) [facility] Absolute lymphocyte countOrd ered By: Helen Jeff on 12-11-2022 Lymphocytes Auto (Unsp spec) [#/Vol] 1.88 10*3/uL 0.83-4.51 [facility] Atypical perinuclear antineu trophil cytoplasmic antibodies measurementOrdered By: Helen Jeff on 12-11-2022 Neutrophil cytoplasmic Ab.perinuclear.atypical IF (S) [Titer] 1:320 titer Neg:<1:20 [facility] Comment on above: The atypical pANCA p attern has been observed in asignificant percentage of patients with ulcerative colitis,primary sclerosing cholangitis and autoimmune hepatitis. Basophil percentageOrdered B y: Helen Jeff on 12-11-2022 Basophil percentage < 0.2 AI 0.0-0.9 [facility] Basophils/100 WBC (Bld) 0.4 % 0-1 [facility] Bilirubin [Mass/Vol] 0.80 mg/dL 0.20-1.00 [facility] Comment on above: For patients on eltr ombopag therapy, use of Dimension [place] TBIL is not recommended. Chloride [Moles/Vol] 108 mmol/L 98-107 [facility] Eosinophils/100 WBC (Bld) 1.0 % 0-5 [facility] Glucose [Mass/Vol] 69 mg/dL 74-106 [facility] LDH [Catalytic activity/Vol] 147 U/L 84-246 [facility] Neutrophils (Bld) [#/Vol] 2.8 10*3/uL 2.0-7.7 [facility] Neutrophils/100 WBC (Bld) 53.7 % 47-70 [facility] Potassium [Moles/Vol] 3.8 mmol/L 3.5-5.1 [facility] Protein [Mass/Vol] 7.3 g/dL 6.4-8.2 [facility] Sodium [Moles/Vol] 140 mmol/L 136-145 [facility] WBC (Bld) [#/Vol] 5.2 10*3/uL 4.4-11.0 [facility] Blood erythrocytes count (nu mber/volume)Ordered By: Helen Jeff on 12-11-2022 RBC (Bld) [#/Vol] 4.23 10*6/uL 4.2-5.4 [facility] Blood hemoglobin measurement (mass/volume)Ordered By: Helen Jeff on 12-11-2022 Hemoglobin (Bld) [Mass/Vol] 13.4 g/dL 12.0-15.0 [facility] Blood lymphocytes/100 leukoc ytesOrdered By: Helen Jeff on 12-11-2022 Lymphocytes/100 WBC (Bld) 36.5 % 19-41 [facility] Blood monocytes/100 leukocyt esOrdered By: Helen Jeff on 12-11-2022 Monocytes/100 WBC (Bld) 8.2 % 0-10 [facility] Blood platelet mean volumeOr dered By: Helen Jeff on 12-11-2022 Platelet mean volume (Bld) [Entitic vol] 9.7 fL 6.2-12.0 [facility] Determination of erythrocyte mean corpuscular volume (MCV)Ordered By: Helen Jeff on 12-11-2022 MCV (RBC) [Entitic vol] 97.2 fL 81-99 [facility] Direct bilirubinOrdered By: Helen Jeff on 12-11-2022 Bilirubin.direct [Mass/Vol] 0.23 mg/dL 0.00-0.30 [facility] Erythrocyte sedimentation ra teOrdered By: Helen Jeff on 12-11-2022 ESR (Bld) [Velocity] 4 mm/h 0-30 [facility] Hematocrit Auto (Bld) [Volum e fraction]Ordered By: Helen Jeff on 12-11-2022 Hematocrit (Bld) [Volume fraction] 41.1 % 37-47 [facility] - Chemistry and C hemistry - challengeOrdered By: Helen Jeff on 12-11-2022 ALP [Catalytic activity/Vol] 68 U/L 45-117 [facility] ALT [Catalytic activity/Vol] 26 U/L 13-56 [facility] CO2 [Moles/Vol] 29.0 mmol/L 21.0-32.0 [facility] Globulin (S) [Mass/Vol] 3.3 g/dL 2.2-4.2 [facility] Urea nitrogen/Creatinine [Mass ratio] 18.3 mg/mg 10-20 [facility] Laboratory - Hematology and Cell countsOrdered By: Helen Jeff on 12-11-2022 Erythrocyte distribution width (RBC) [Entitic vol] 50.0 fL 35.1-43.9 [facility] Erythrocyte distribution width (RBC) [Ratio] 13.8 % 11.6-14.6 [facility] Immature granulocytes/100 WBC (Bld) 0.200 % 0.0-0.9 [facility] Comment on above: IG% - Immature Granu locytes (promyelocytes, myelocytes and metamyelocytes) > 1% indicates that a LEFT SHIFT is Present. MCH (RBC) [Entitic mass] 31.7 pg 27.0-32.0 [facility] Nucleated RBC/100 WBC (Bld) [Ratio] 0 % 0-5 [facility] MCHC Auto (RBC) [Mass/Vol]Or dered By: Helen Jeff on 12-11-2022 MCHC (RBC) [Mass/Vol] 32.6 g/dL 32-36 [facility] No Panel InformationOrdered By: Helen Jeff on 12-11-2022 Centromere B Antibody <0.2 AI 0.0-0.9 [facility] Endomysial IgA Antibody Negative Negative [facility] Estimated GFR (MDRD) Amer 97 mL/min >60 [facility] Comment on above: GFR Calc Estimated GFR (MDRD) Non-Af Amer 80 mL/min >60 [facility] Comment on above: Non- GFR Calc PLASTERER MAINTENANCE Antibody 1.3 AI 0.0-0.9 [facility] Thyroid Stimulating Hormone (TSH) 1.40 uIU/mL 0.358-3.74 [facility] Platelets bldOrdered By: Alejandra Jeff on 12-11-2022 Platelets (Bld) [#/Vol] 221 10*3/uL 150-450 [facility] Serum DNA double strand anti body assay (units/volume)Ordered By: Helen Jeff on 12-11-2022 DNA double strand Ab Qn (S) [IU]/mL 0-9 [facility] Comment on above: Negative <5 Equivoca l 5 - 9 Positive >9 Serum IgA measurement (units /volume)Ordered By: Helen Jeff on 12-11-2022 IgA Qn (S) 85 mg/dL 87-352 [facility] Serum Anisha-1 antibody assay (u nits/volume)Ordered By: Helen Jeff on 12-11-2022 Anisha-1 extractable nuclear Ab Qn (S) <0.2 AI 0.0-0.9 [facility] Serum Scl-70 extractable nuc lear antibody assay (units/volume)Ordered By: Helen Jeff on 12-11-2022 SCL-70 extractable nuclear Ab Qn (S) <0.2 AI 0.0-0.9 [facility] Serum Burgos extractable nucl ear antibody detectionOrdered By: Helen Jeff on 12-11-2022 [place] extractable nuclear Ab Ql (S) <0.2 AI 0.0-0.9 [facility] Serum classic neutrophil cyt oplasmic antibody assay (units/volume)Ordered By: Helen Jeff on 12-11-2022 Neutrophil cytoplasmic Ab.classic Qn (S) <1:20 titer Neg:<1:20 [facility] Serum mitochondria antibody detectionOrdered By: Helen Jeff on 12-11-2022 Mitochondria Ab Ql (S) <20.0 Units 0.0-20.0 [facility] Comment on above: Negative 0.0 - 20.0 Equivocal 20.1 - 24.9 Positive >24.9Mitochondrial (M2) Antibodies are found in 90-96% ofpatients with primary biliary cirrhosis.Performed at: [address] [id number] Director: Bj De Leon PhD, Phone: [phone] Serum or plasma C reactive p rotein measurement (mass/volume)Ordered By: Helen Jeff on 12-11-2022 CRP [Mass/Vol] mg/L 0.0-3.0 [facility] Comment on above: C-Reactive Protein ( CRP) provides useful information for thediagnosis, therapy and monitoring of inflammatory processesand associated diseases. For the evaluation of Relative Riskfor Cardiovascular Disease, a High Sensitivity CRP (HSCRP)should be ordered. Serum or plasma actin IgG an tibody assay (units/volume)Ordered By: Helen Jeff on 05-17-2023 Actin IgG Qn 5 Units 0-19 [facility] Comment on above: Negative 0 - 19 Weak positive 20 - 30 Moderate to strong positive >30 Actin Antibodies are found in 52-85% of patients with autoimmune hepatitis or chronic active hepatitis and in 22% of patients with primary biliary cirrhosis.Performed at: [facility] [id number] [place], [place] [id number] Director: Bj De Leon PhD, Phone: [phone] Serum or plasma albumin reyes urement (mass/volume)Ordered By: Helen Jeff on 12-11-2022 Albumin [Mass/Vol] 4.0 g/dL 3.2-5.0 [facility] Serum or plasma albumin/glob ulin mass ratioOrdered By: Helen Jeff on 12-11-2022 Albumin/Globulin [Mass ratio] 1.2 {ratio} 0.9-2.4 [facility] Serum or plasma calcium reyes urement (mass/volume)Ordered By: Helen Jeff on 12-11-2022 Calcium [Mass/Vol] 8.8 mg/dL 8.5-10.1 [facility] Serum or plasma creatinine m easurement (mass/volume)Ordered By: Helen Jeff on 12-11-2022 Creatinine [Mass/Vol] 0.77 mg/dL 0.55-1.02 [facility] Comment on above: The validity of the calculated GFR & GFRAA in patients over 70 years has not been determined. Clinical correlation is essential. Serum or plasma urea nitroge n measurement (mass/volume)Ordered By: Helen Jeff on 12-11-2022 Urea nitrogen [Mass/Vol] 14 mg/dL 7- [facility] Serum perinuclear neutrophil cytoplasmic antibody titer by immunofluorescenceOrdered By: Helen Jeff on 12-11-2022 Neutrophil cytoplasmic Ab.perinuclear IF (S) [Titer] <1:20 titer Neg:<1:20 [facility] Comment on above: The presence of posi tive fluorescence exhibiting P-ANCA orC-ANCA patterns alone is not specific for the diagnosis ofWegener's Granulomatosis (WG) or microscopic polyangiitis.Decisions about treatment should not be based solely onANCA IFA results. The International ANCA Group Consensusrecommends follow up testing of positive sera with both MS-3 and MPO-ANCA enzyme immunoassays. As many as 5% serumsamples are positive only by EIA. Ref. AM J Clin Cpmifa0504;111:507-513. Serum tissue transglutaminas e IgA antibody assay (units/volume)Ordered By: Helen Jeff on 12-11-2022 tTG IgA Qn (S) <2 U/mL 0-3 [facility] Comment on above: Negative 0 - 3 Weak Positive 4 - 10 Positive >10 Tissue Transglutaminase (tTG) has been identified as the endomysial antigen. Studies have demonstr- ated that endomysial IgA antibodies have over 99% specificity for gluten sensitive enteropathy. Thin prep Papanicolaou smear with manual screeningOrdered By: Helen Jeff on 12-11-2022 Thin prep Papanicolaou smear with manual screening 23 U/L 15-37 [facility] Thin prep Papanicolaou smear with manual screening 3 5-15 [facility] Absolute lymphocyte countOrd ered By: ED PROVIDER on 11-12-2022 Lymphocytes Auto (Unsp spec) [#/Vol] 0.41 10*3/uL 0.83-4.51 [facility] Basophil percentageOrdered B y: ED PROVIDER on 11-12-2022 Basophil percentage 0 SEEN /hpf 0-5 [facility] Basophils/100 WBC (Bld) 0.1 % 0-1 [facility] Bilirubin [Mass/Vol] 1.10 mg/dL 0.20-1.00 [facility] Comment on above: For patients on eltr ombopag therapy, use of Dimension [place] TBIL is not recommended. Chloride [Moles/Vol] 106 mmol/L 98-107 [facility] Eosinophils/100 WBC (Bld) 0.0 % 0-5 [facility] Glucose [Mass/Vol] 138 mg/dL 74-106 [facility] Comment on above: Fasting Glucose resu lt greater than or equal to 126 mg/dL suggests DIABETES MELLITUS per A.D.A. criteria. Neutrophils (Bld) [#/Vol] 6.1 10*3/uL 2.0-7.7 [facility] Neutrophils/100 WBC (Bld) 90.8 % 47-70 [facility] Potassium [Moles/Vol] 4.1 mmol/L 3.5-5.1 [facility] Protein [Mass/Vol] 7.2 g/dL 6.4-8.2 [facility] Sodium [Moles/Vol] 137 mmol/L 136-145 [facility] WBC (Bld) [#/Vol] 6.7 10*3/uL 4.4-11.0 [facility] Bilirubin Test strip Ql (U)O rdered By: ED PROVIDER on 11-12-2022 Bilirubin Ql (U) Negative Negative [facility] Blood erythrocytes count (nu mber/volume)Ordered By: ED PROVIDER on 11-12-2022 RBC (Bld) [#/Vol] 4.52 10*6/uL 4.2-5.4 [facility] Blood hemoglobin measurement (mass/volume)Ordered By: ED PROVIDER on 11-12-2022 Hemoglobin (Bld) [Mass/Vol] 14.1 g/dL 12.0-15.0 [facility] Blood lymphocytes/100 leukoc ytesOrdered By: ED PROVIDER on 11-12-2022 Lymphocytes/100 WBC (Bld) 6.1 % 19-41 [facility] Blood manual differential co mment interpretation (narrative result)Ordered By: ED PROVIDER on 11-12-2022 Manual differential comment Tio (Bld) [Interp] SCANNED [facility] Blood monocytes/100 leukocyt esOrdered By: ED PROVIDER on 11-12-2022 Monocytes/100 WBC (Bld) 2.4 % 0-10 [facility] Blood platelet mean volumeOr dered By: ED PROVIDER on 11-12-2022 Platelet mean volume (Bld) [Entitic vol] 9.1 fL 6.2-12.0 [facility] Determination of erythrocyte mean corpuscular volume (MCV)Ordered By: ED PROVIDER on 11-12-2022 MCV (RBC) [Entitic vol] 94.0 fL 81-99 [facility] Hematocrit Auto (Bld) [Volum e fraction]Ordered By: ED PROVIDER on 11-12-2022 Hematocrit (Bld) [Volume fraction] 42.5 % 37-47 [facility] Ketones Test strip Ql (U)Ord ered By: ED PROVIDER on 11-12-2022 Ketones Ql (U) 50 mg/dl Negative [facility] - Chemistry and C hemistry - challengeOrdered By: ED PROVIDER on 11-12-2022 ALP [Catalytic activity/Vol] 71 U/L 45-117 [facility] ALT [Catalytic activity/Vol] 26 U/L 13-56 [facility] CO2 [Moles/Vol] 30.0 mmol/L 21.0-32.0 [facility] Globulin (S) [Mass/Vol] 3.1 g/dL 2.2-4.2 [facility] Urea nitrogen/Creatinine [Mass ratio] 24.0 mg/mg 10-20 [facility] - Chemistry and C hemistry - challengeOrdered By: Dr. Tobar on 11-12-2022 Lipase [Catalytic activity/Vol] 41 U/L 13-75 [facility] Comment on above: Please note:LIPASE r evised reference range effective 22. New Lipase methodology. Expected to produce lower values than the previous assay method. NEW Reference Range: 13 - 75 U/L Laboratory - Hematology and Cell countsOrdered By: ED PROVIDER on 11-12-2022 Erythrocyte distribution width (RBC) [Entitic vol] 46.1 fL 35.1-43.9 [facility] Erythrocyte distribution width (RBC) [Ratio] 13.3 % 11.6-14.6 [facility] Immature granulocytes/100 WBC (Bld) 0.600 % 0.0-0.9 [facility] Comment on above: IG% - Immature Granu locytes (promyelocytes, myelocytes and metamyelocytes) > 1% indicates that a LEFT SHIFT is Present. MCH (RBC) [Entitic mass] 31.2 pg 27.0-32.0 [facility] Nucleated RBC/100 WBC (Bld) [Ratio] 0 % 0-5 [facility] MCHC Auto (RBC) [Mass/Vol]Or dered By: ED PROVIDER on 11-12-2022 MCHC (RBC) [Mass/Vol] 33.2 g/dL 32-36 [facility] Mucus LM Ql (Urine sed)Order ed By: ED PROVIDER on 11-12-2022 Mucus Ql (Urine sed) 0 SEEN /hpf [facility] Nitrite Test strip Ql (U)Ord ered By: ED PROVIDER on 11-12-2022 Nitrite Ql (U) Negative Negative [facility] No Panel InformationOrdered By: ED PROVIDER on 11-12-2022 Estimated GFR (MDRD) Amer 114 mL/min >60 [facility] Comment on above: GFR Calc Estimated GFR (MDRD) Non-Af Amer 94 mL/min >60 [facility] Comment on above: Non- GFR Calc Platelets bldOrdered By: ED PROVIDER on 11-12-2022 Platelets (Bld) [#/Vol] 216 10*3/uL 150-450 [facility] Protein Test strip Ql (U)Ord ered By: ED PROVIDER on 11-12-2022 Protein Ql (U) 30 mg/dl Negative [facility] Serum or plasma albumin reyes urement (mass/volume)Ordered By: ED PROVIDER on 11-12-2022 Albumin [Mass/Vol] 4.1 g/dL 3.2-5.0 [facility] Serum or plasma albumin/glob ulin mass ratioOrdered By: ED PROVIDER on 11-12-2022 Albumin/Globulin [Mass ratio] 1.3 {ratio} 0.9-2.4 [facility] Serum or plasma calcium reyes urement (mass/volume)Ordered By: ED PROVIDER on 11-12-2022 Calcium [Mass/Vol] 9.3 mg/dL 8.5-10.1 [facility] Serum or plasma creatinine m easurement (mass/volume)Ordered By: ED PROVIDER on 11-12-2022 Creatinine [Mass/Vol] 0.67 mg/dL 0.55-1.02 [facility] Comment on above: The validity of the calculated GFR & GFRAA in patients over 70 years has not been determined. Clinical correlation is essential. Serum or plasma urea nitroge n measurement (mass/volume)Ordered By: ED PROVIDER on 11-12-2022 Urea nitrogen [Mass/Vol] 16 mg/dL 7-18 [facility] Squamous epithelial cells de tection in urine sediment by light microscopyOrdered By: ED PROVIDER on 11-12-2022 Epithelial cells.squamous LM Ql (Urine sed) 0 SEEN /hpf 5-10 [facility] Thin prep Papanicolaou smear with manual screeningOrdered By: ED PROVIDER on 11-12-2022 Thin prep Papanicolaou smear with manual screening 24 U/L 15-37 [facility] Thin prep Papanicolaou smear with manual screening 1 5-15 [facility] Urine blood detectionOrdered By: ED PROVIDER on 11-12-2022 RBC Ql (U) 50 /ul Negative [facility] RBC Ql (U) 0-5 SEEN /hpf 0-5 [facility] Urine clarityOrdered By: ED PROVIDER on 11-12-2022 Clarity (U) Clear Clear [facility] Urine color determinationOrd ered By: ED PROVIDER on 11-12-2022 Color (U) Yellow Yellow [facility] Urine glucose detectionOrder ed By: ED PROVIDER on 11-12-2022 Glucose Ql (U) 50 mg/dl Normal [facility] Urine leukocyte esterase det ection by dipstickOrdered By: ED PROVIDER on 11-12-2022 Leukocyte esterase Test strip Ql (U) Negative Negative [facility] Urine pHOrdered By: ED PROVI TORITO on 11-12-2022 pH (U) 6.5 [pH] 5.0 - 8.0 [facility] Urine sediment bacteria coun t by microscopy (number/high power field)Ordered By: ED PROVIDER on 11-12-2022 Bacteria LM.HPF (Urine sed) [#/Area] 0 /[HPF] None Seen [facility] Urine specific gravity measu rementOrdered By: ED PROVIDER on 11-12-2022 Specific gravity (U) [Rel density] 1.015 1.002-1.030 [facility] Urobilinogen Auto test strip Ql (U)Ordered By: ED PROVIDER on 11-12-2022 Urobilinogen Ql (U) Normal mg/dl Normal [facility] CT Low Dose Lung Screeningon 11-22-2021 CT Low Dose Lung Screening Patient Name: CLARIBEL FIELDS [facility]#: [id number] Computed Tomography ACCESSION EXAM DATE/TIME PROCEDURE ORDERING PROVIDER [id number] 11/22/2021 09:[address] Low Dose Lung Scrn MD JACQUELINE EDWARDS AMELIA E. CPT code G0297 Reason For Exam (CT Low Dose Lung Scrn) current smoker , weight loss Report CT CHEST SCREENING WITHOUT CONTRAST CLINICAL INDICATION: Tobacco use, screening for lung cancer. Low-dose axial CT images of the thorax from the lung apices through the bases were obtained. Coronal and sagittal reformatted images were also made available for interpretation. COMPARISON: None. FINDINGS: No focal consolidation is seen within the lungs. There is no pleural effusion or pneumothorax. Moderate emphysematous changes are noted within the lungs. No pulmonary nodules are identified. No axillary, mediastinal, or hilar lymphadenopathy is identified on these noncontrast images. The heart size is within normal limits. There is no pericardial effusion. The thoracic aorta is normal in caliber. Mild atherosclerotic calcifications of the thoracic aorta and coronary arteries noted. The visualized portion of the upper abdomen is unremarkable. IMPRESSION: Emphysematous changes. No lung nodules identified. ASSESSMENT CATEGORY: Lung-RADS 1 - Negative. Recommend continued annual low-dose screening CT in 12 months. Lung-RADS Version 1.1 Assessment Categories - for Screening CT Chest Only. Release date: December 17, 2018 Category 1 - Negative - Continue annual screening with low-dose CT No nodules Nodules with benign characteristics (complete, central, popcorn Ca++) or fat Category 2 - Benign appearance or behavior - Continue annual screening with low-dose CT Perifissural nodule(s) < 10 mm (see note 11 below) Computed Tomography Report Solid nodule(s): < 6 mm or new < 4 mm Part solid nodule(s): < 6 mm total diameter on baseline screening Nonsolid nodule(s) (GGN): < 30 mm OR >/= 30 mm and unchanged or slowly growing Category 3 or 4 nodules unchanged for >/= 3 months Category 3 - Probably benign finding(s) - 6 month follow up with low-dose CT Solid nodule(s): 6 to < 8 mm at baseline OR new 4 mm to < 6 mm Part solid nodule(s) >/= 6 mm total diameter with solid component < 6 mm OR new < 6 mm total diameter Nonsolid nodule(s) (GGN) >/= [address] or new Category 4A - Suspicious - 3 month low-dose CT follow up or PET/CT when >/= 8 mm solid component Solid nodule(s): 8 to < 15 mm at baseline OR growing < 8 mm OR new 6 to <8 mm Part solid nodule(s): >/= 6 mm with solid component >/= 6 mm to < 8 mm OR with a new or growing < 4 mm solid component Any endobronchial nodule Category 4B - Very Suspicious - chest CT with or without contrast, PET/CT and/or tissue sampling depending on the *probability of malignancy and comorbidities. PET/CT may be used when there is a >/= 8 mm solid component. For new large nodules that develop on an annual repeat screening CT, a [address] may be recommended to address potentially inflammatory or infections conditions. Solid nodule(s): >/= 15 mm OR new or growing, and >/= 8 mm Part solid nodule(s) with: a solid component >/= 8 mm OR a new or growing >/= 4 mm solid component Category 4X - Very Suspicious - (same work up as Category 4B) Category 3 or 4 nodules with additional features or imaging findings that increases the suspicion of malignancy - spiculation, rapid growth or associated lymph node enlargement Modifier to add to Category 0-4: Category S - Clinically or potentially significant non lung cancer related findings IMPORTANT NOTES FOR USE: 1. Negative screen: does not mean that an individual does not have lung cancer. 2. Size: to calculate nodule mean diameter, measure both the long and short axis to one decimal point and report mean nodule diameter to one decimal point. 3. Size Thresholds: apply to nodules at first detection, and that grow and reach a higher size category 4. Growth: an increase in size of > 1.5 mm 5. Exam category: each exam should be coded 0-4 based on the nodule(s) with the highest degree of suspicion 6. Exam Modifiers: S modifier may be added to the 0-4 category 7. Lung cancer diagnosis: Once a patient is diagnosed with lung cancer, further management (including additional imaging such as PET/CT) may be performed for purposes of lung cancer staging; this is no longer screening 8. Practice audit definitions: a negative screen is defined as categories 1 and 2; a positive screen is defined as categories 3 and 4 9. Category 4B Management: this is predicated on the probability of malignancy based on patient evaluation, patient preference and risk of malignancy; radiologists are encouraged to use the Rosie et al assessment tool when making recommendations 10. Category 4X: nodules with additional imaging findings that increase the suspicion of lung cancer, such as spiculation, GGN that do (more content not included)... Normal [facility] DEXA BONE DENSITY AXIAL SKEL ETONon 04-26-2022 Patient Name: CLARIBEL FIELDS Bone Density ACCESSION EXAM DATE/TIME PROCEDURE ORDERING PROVIDER [id number] 11/20/2021 10:06 EDT OT Bone Density DEXA MD [facility], POOJA Davis Axial Skeleton CPT code 45406 Reason For Exam (OT Bone Density DEXA Axial Skeleton) OSTEOPOROSIS; SCREENING. 46.6; WELL WOMAN EXAM; Z01.419 Report DXA BONE DENSITOMETRY: CLINICAL INDICATION: Asymptomatic post-menopausal status COMPARISON: 09/03/18. TECHNIQUE: Quantitative bone mineral densitometry of the hip and lumbar spine was performed with a dual energy x-ray observed absorptiometry device - HoloSavvify Horizon W. Regions of interest were obtained through the left proximal femur and compared to the normal value of the young adult. Regions of interest were also obtained through the lumbar vertebrae with an average value determined and compared with the young adult. The measured bone density minus the bone density of the young normal reference divided by the reference standard deviation is expressed as the T score. Using the same formula adjusting the reference density and standard deviation for age and race determines the Z score. According to World Health Organization criteria: T-score of -1.0 or higher is normal. T-score between -1.0 and -2.5 is low bone density or osteopenia. T-score of -2.5 or lower is abnormally low, compatible with osteoporosis. T-score of -2.5 or less plus fragility fracture indicates severe osteoporosis. FINDINGS: Hip: Femoral neck Density: 0.528 g/cm2. T-score: -2.9 Z-score: -1.4 Hip: Total hip Density: 0.569 g/cm2. T-score: -3.1 Z-score: -1.8 Comparison from prior examination: Change in bone mineral density is 1.5 percent. Spine: L1-L4 Density 0.770 g/cm2. T-score: -2.5 Z-score: -0.7 Comparison from prior examination: The change in bone mineral density is -6.4 percent. IMPRESSION: Osteoporosis. Bone Density Report FRACTURE RISK: The estimated 10 year risk for a major osteoporosis-related fracture is 15 % and for a hip fracture is 6.2 %. (FRAX version 3.08). RECOMMENDATIONS: General recommendations for prevention of bone loss include: 7291-0824 mg calcium intake per day for adults >50yrs, and no history of renal calculi 800-1000 IU of vitamin D3 per day for adults >50yrs, and no history of renal calculi Weight bearing exercise Discontinue smoking Avoid excessive use of caffeine, soft drinks, and alcoholic beverages. In addition, balance training and fall prevention programs can help reduce the risk of fractures. Pharmacologic treatment recommendations: Initiate pharmacologic treatment in patients with: -Hip or vertebral fracture. -In those with T scores spine by DXA -In postmenopausal women and men age 50 or older with low bone mass (T score between -1.0 and -2.5 [osteopenia]) at the femoral neck, total hip, or lumbar spine by DXA and a 10 year hip fracture probability >/= 3% or a 10 year major osteoporosis-related fracture probability >/= 20% based on the [place]-adapted WHO fracture risk model (FRAX). Current FDA-approved pharmacologic options for osteoporosis treatment include bisphosphonates (Fosamax), ibandronate (Boniva), risedronate (Actonel), zoledronic acid (Reclast), estrogens and other hormonal therapies (Evista), parathyroid hormone (Forteo), and denosumab (Prolia). Initiation of pharmacologic therapy should happen only after thorough medical evaluation, discussion of risks and benefits, and with regular monitoring of the therapeutic regimen. FOLLOW-UP RECOMMENDATIONS: Patients with osteoporosis or or at high risk for fracture should have follow-up bone density tests. For Medicare patients, routine testing is allowed every 2 years. Patients who have low bone mass (T score -2.0 to -2.49), who are currently on treatment for low bone mass, or having risk factors for accelerated bone loss (glucocorticoids, aromatase inhibitors, etc.), consider repeat DXA in 1-2 years. Patients with osteopenia and no risk factors may consider follow-up every 3-5 years. REFERENCES: National Osteoporosis Foundation. Clinician's Guide to Prevention and Treatment of Osteoporosis. Osteoporosis International. Vásquez, 2014. DXA Scan Screening, Reporting (FRAX Score) and Follow-up. [employer] Evidence-Based Summaries. [facility] [employer] [facility] [employer] [facility]. 2017 Bone Density Report Report Dictated on --- Final --- Dictating Physician: MD LIU LAUREN B Signed Date and Time: 11/20/2021 10:43 am Signed by: LALITA (more content not included)... [facility] Tangela Liu MD - 11/20/2021 Patient Name: CLARIBEL FIELDS Bone Density ACCESSION EXAM DATE/TIME PROCEDURE ORDERING PROVIDER [id number] 11/20/2021 10:06 EDT OT Bone Density DEXA MD [facility], POOJA Davis Axial Skeleton CPT code 45478 Reason For Exam (OT Bone Density DEXA Axial Skeleton) OSTEOPOROSIS; SCREENING. 46.6; WELL WOMAN EXAM; Z01.419 Report DXA BONE DENSITOMETRY: CLINICAL INDICATION: Asymptomatic post-menopausal status COMPARISON: 09/03/18. TECHNIQUE: Quantitative bone mineral densitometry of the hip and lumbar spine was performed with a dual energy x-ray observed absorptiometry device - HoloSavvify Horizon W. Regions of interest were obtained through the left proximal femur and compared to the normal value of the young adult. Regions of interest were also obtained through the lumbar vertebrae with an average value determined and compared with the young adult. The measured bone density minus the bone density of the young normal reference divided by the reference standard deviation is expressed as the T score. Using the same formula adjusting the reference density and standard deviation for age and race determines the Z score. According to World Health Organization criteria: T-score of -1.0 or higher is normal. T-score between -1.0 and -2.5 is low bone density or osteopenia. T-score of -2.5 or lower is abnormally low, compatible with osteoporosis. T-score of -2.5 or less plus fragility fracture indicates severe osteoporosis. FINDINGS: Hip: Femoral neck Density: 0.528 g/cm2. T-score: -2.9 Z-score: -1.4 Hip: Total hip Density: 0.569 g/cm2. T-score: -3.1 Z-score: -1.8 Comparison from prior examination: Change in bone mineral density is 1.5 percent. Spine: L1-L4 Density 0.770 g/cm2. T-score: -2.5 Z-score: -0.7 Comparison from prior examination: The change in bone mineral density is -6.4 percent. IMPRESSION: Osteoporosis. Bone Density Report FRACTURE RISK: The estimated 10 year risk for a major osteoporosis-related fracture is 15 % and for a hip fracture is 6.2 %. (FRAX version 3.08). RECOMMENDATIONS: General recommendations for prevention of bone loss include: 7649-1184 mg calcium intake per day for adults >50yrs, and no history of renal calculi 800-1000 IU of vitamin D3 per day for adults >50yrs, and no history of renal calculi Weight bearing exercise Discontinue smoking Avoid excessive use of caffeine, soft drinks, and alcoholic beverages. In addition, balance training and fall prevention programs can help reduce the risk of fractures. Pharmacologic treatment recommendations: Initiate pharmacologic treatment in patients with: -Hip or vertebral fracture. -In those with T scores lumbar spine by DXA -In postmenopausal women and men age 50 or older with low bone mass (T score between -1.0 and -2.5 [osteopenia]) at the femoral neck, total hip, or lumbar spine by DXA and a 10 year hip fracture probability >/= 3% or a 10 year major osteoporosis-related fracture probability >/= 20% based on the [place]-adapted WHO fracture risk model (FRAX). Current FDA-approved pharmacologic options for osteoporosis treatment include bisphosphonates (Fosamax), ibandronate (Boniva), risedronate (Actonel), zoledronic acid (Reclast), estrogens and other hormonal therapies (Evista), parathyroid hormone (Forteo), and denosumab (Prolia). Initiation of pharmacologic therapy should happen only after thorough medical evaluation, discussion of risks and benefits, and with regular monitoring of the therapeutic regimen. FOLLOW-UP RECOMMENDATIONS: Patients with osteoporosis or or at high risk for fracture should have follow-up bone density tests. For Medicare patients, routine testing is allowed every 2 years. Patients who have low bone mass (T score -2.0 to -2.49), who are currently on treatment for low bone mass, or having risk factors for accelerated bone loss (glucocorticoids, aromatase inhibitors, etc.), consider repeat DXA in 1-2 years. Patients with osteopenia and no risk factors may consider follow-up every 3-5 years. REFERENCES: National Osteoporosis Foundation. Clinician's Guide to Prevention and Treatment of Osteoporosis. Osteoporosis International. Vásquez, 2014. DXA Scan Screening, Reporting (FRAX Score) and Follow-up. [employer] Knowledge Evidence-Based Summaries. [facility] and Research. 2017 Bone Density Report Report Dictated on --- Final --- Dictating Physician: MD LIU LAUREN B Signed Date and Time: 11/20/2021 10:43 am Signed by: MD LIU LAUREN B Transcribed Date and Time: 11/20/2021 10:44 [facility] Work Phone: DEXA BONE DENSITY AXIAL SKEL ETONOrdered By: Tangela Liu on 11-20-2021 [facility] Work Phone: MG Breast Tomosynthesis Scr Blon 11-20-2021 MG Breast Tomosynthesis Scr Bl Patient Name: CLARIBEL FIELDS Mammography ACCESSION EXAM DATE/TIME PROCEDURE ORDERING PROVIDER [id number] 11/20/2021 10:10 EDT MG Breast Tomosynthesis MD [facility], POOJA Davis BI Scr CPT code 58942 [id number] Reason For Exam (MG Breast Tomosynthesis BI Scr) SCREENING Report TIME SINCE LAST MAMMOGRAM: Last mammogram was performed 3 years and 3 months ago. REASON FOR EXAM: screening, asymptomatic. PROCEDURE: MG BREAST TOMOSYNTHESIS BL SCR: NOVEMBER 20, 2021 - 2D/3D Procedure 3D Bilateral CC and MLO view(s) were taken. 2D Bilateral CC and MLO view(s) were taken. Prior study comparison: September 03, 2018, bilateral MG breast tomosynthesis bl scr performed at [facility]. December 29, 2014, bilateral screening mammogram performed at [facility]. TISSUE DENSITY: BIRADS C - The breast tissue is heterogeneously dense, which could obscure underlying abnormalities. . PATIENT CANCER HISTORY: No Personal History of Cancer FAMILY CANCER HISTORY: No Family History of Cancer FINDINGS: No suspicious masses, architectural distortions or suspiciously clustered microcalcifications are identified. There is no evidence of skin thickening or nipple retraction. There are no significant changes when compared with prior studies. Markings on images: BB's = Nipples; skin lesions Open buckland = Palpable Line = Scar 2D digital mammography and tomosynthesis imaging were performed and reviewed with CAD. ASSESSMENT: Category 1 Negative RECOMMENDATION: Routine screening mammogram of both breasts in 1 year. Mammography Report . Report Dictated on Cancer Risk Assessment: This risk assessment is based on patient provided information collected in a risk survey taken at the time of this examination. Lifetime breast cancer risk: Average Risk - If greater than or equal to 20%, consider annual mammogram and annual screening Breast MRI or follow up in high risk clinic. A score of Average Risk indicates a score of less than 20%. Is the patient at elevated risk based on the HBOC criteria? No (Hereditary Breast and Ovarian Cancer) - If yes, consider genetic counseling and testing with high risk follow up. Is the patient at elevated risk based on the Lugo Syndrome criteria? No - If yes, consider genetic counseling and testing with high risk follow up. Final Signed Date and Time: 11/20/2021 11:40 am Signed by: MD ZACHARY, CJ [facility] Digital [facility] 11-20-2021 Patient Name: CLARIBEL FIELDS Mammography ACCESSION EXAM DATE/TIME PROCEDURE ORDERING PROVIDER [id number] 11/20/2021 10:10 EDT MG Breast Tomosynthegerman EDWARDS MD LTD, POOJA Davis BI Scr CPT code [id number] Reason For Exam (MG Breast Tomosynthesis BI Scr) SCREENING Report TIME SINCE LAST MAMMOGRAM: Last mammogram was performed 3 years and 3 months ago. REASON FOR EXAM: screening, asymptomatic. PROCEDURE: MG BREAST TOMOSYNTHESIS BL SCR: NOVEMBER 20, 2021 - 2D/3D Procedure 3D Bilateral CC and MLO view(s) were taken. 2D Bilateral CC and MLO view(s) were taken. Prior study comparison: September 03, 2018, bilateral MG breast tomosynthesis bl scr performed at [facility]. December 29, 2014, bilateral screening mammogram performed at [facility]. TISSUE DENSITY: BIRADS C - The breast tissue is heterogeneously dense, which could obscure underlying abnormalities. . PATIENT CANCER HISTORY: No Personal History of Cancer FAMILY CANCER HISTORY: No Family History of Cancer FINDINGS: No suspicious masses, architectural distortions or suspiciously clustered microcalcifications are identified. There is no evidence of skin thickening or nipple retraction. There are no significant changes when compared with prior studies. Markings on images: BB's = Nipples; skin lesions Open buckland = Palpable Line = Scar 2D digital mammography and tomosynthesis imaging were performed and reviewed with CAD. ASSESSMENT: Category 1 Negative RECOMMENDATION: Routine screening mammogram of both breasts in 1 year. Mammography Report . Report Dictated on Cancer Risk Assessment: This risk assessment is based on patient provided information collected in a risk survey taken at the time of this examination. Lifetime breast cancer risk: Average Risk - If greater than or equal to 20%, consider annual mammogram and annual screening Breast MRI or follow up in high risk clinic. A score of Average Risk indicates a score of less than 20%. Is the patient at elevated risk based on the HBOC criteria? No (Hereditary Breast and Ovarian Cancer) - If yes, consider genetic counseling and testing with high risk follow up. Is the patient at elevated risk based on the Lugo Syndrome criteria? No - If yes, consider genetic counseling and testing with high risk follow up. --- Final --- Signed Date and Time: 11/20/2021 11:40 am Signed by: MD ZACHARY, CJ [facility], Unknown Prov ider - 11/20/2021 Patient Name: CLARIBEL FIELDS Mammography ACCESSION EXAM DATE/TIME PROCEDURE ORDERING PROVIDER [id number] 11/20/2021 10:10 EDT MG Breast Tomosynthesis MD [facility], POOJA Davis BI Scr CPT code [id number] Reason For Exam (MG Breast Tomosynthesis BI Scr) SCREENING Report TIME SINCE LAST MAMMOGRAM: Last mammogram was performed 3 years and 3 months ago. REASON FOR EXAM: screening, asymptomatic. PROCEDURE: MG BREAST TOMOSYNTHESIS BL SCR: NOVEMBER 20, 2021 - 2D/3D Procedure 3D Bilateral CC and MLO view(s) were taken. 2D Bilateral CC and MLO view(s) were taken. Prior study comparison: September 03, 2018, bilateral MG breast tomosynthesis bl scr performed at [facility]. December 29, 2014, bilateral screening mammogram performed at [facility]. TISSUE DENSITY: BIRADS C - The breast tissue is heterogeneously dense, which could obscure underlying abnormalities. . PATIENT CANCER HISTORY: No Personal History of Cancer FAMILY CANCER HISTORY: No Family History of Cancer FINDINGS: No suspicious masses, architectural distortions or suspiciously clustered microcalcifications are identified. There is no evidence of skin thickening or nipple retraction. There are no significant changes when compared with prior studies. Markings on images: BB's = Nipples; skin lesions Open buckland = Palpable Line = Scar 2D digital mammography and tomosynthesis imaging were performed and reviewed with CAD. ASSESSMENT: Category 1 Negative RECOMMENDATION: Routine screening mammogram of both breasts in 1 year. Mammography Report . Report Dictated on Cancer Risk Assessment: This risk assessment is based on patient provided information collected in a risk survey taken at the time of this examination. Lifetime breast cancer risk: Average Risk - If greater than or equal to 20%, consider annual mammogram and annual screening Breast MRI or follow up in high risk clinic. A score of Average Risk indicates a score of less than 20%. Is the patient at elevated risk based on the HBOC criteria? No (Hereditary Breast and Ovarian Cancer) - If yes, consider genetic counseling and testing with high risk follow up. Is the patient at elevated risk based on the Lugo Syndrome criteria? No - If yes, consider genetic counseling and testing with high risk follow up. --- Final --- Signed Date and Time: 11/20/2021 11:40 am Signed by: MD SHARMA VLADIMIR [facility] Work Phone: Soo Jesus Digital Screen Bila teralOrdered By: Unknown Result on 11-20-2021 [facility] No Panel Informationon 11-20 Radiology Study observation (narrative) [facility] Work Phone: OT Bone Density DEXA Axial S keletonon 11-20-2021 OT Bone Density DEXA Axial Skeleton Patient Name: CLARIBEL FIELDS Bone Density ACCESSION EXAM DATE/TIME PROCEDURE ORDERING PROVIDER [id number] 11/20/2021 10:06 EDT OT Bone Density DEXMD JACQUELINE HERRERA, POOJA Davis Axial Skeleton CPT code 44327 Reason For Exam (OT Bone Density DEXA Axial Skeleton) OSTEOPOROSIS; SCREENING. 46.6; WELL WOMAN EXAM; Z01.419 Report DXA BONE DENSITOMETRY: CLINICAL INDICATION: Asymptomatic post-menopausal status COMPARISON: 09/03/18. TECHNIQUE: Quantitative bone mineral densitometry of the hip and lumbar spine was performed with a dual energy x-ray observed absorptiometry device - [employer]il[employer] W. Regions of interest were obtained through the left proximal femur and compared to the normal value of the young adult. Regions of interest were also obtained through the lumbar vertebrae with an average value determined and compared with the young adult. The measured bone density minus the bone density of the young normal reference divided by the reference standard deviation is expressed as the T score. Using the same formula adjusting the reference density and standard deviation for age and race determines the Z score. According to World Health Organization criteria: T-score of -1.0 or higher is normal. T-score between -1.0 and -2.5 is low bone density or osteopenia. T-score of -2.5 or lower is abnormally low, compatible with osteoporosis. T-score of -2.5 or less plus fragility fracture indicates severe osteoporosis. FINDINGS: Hip: Femoral neck Density: 0.528 g/cm2. T-score: -2.9 Z-score: -1.4 Hip: Total hip Density: 0.569 g/cm2. T-score: -3.1 Z-score: -1.8 Comparison from prior examination: Change in bone mineral density is 1.5 percent. Spine: L1-L4 Density 0.770 g/cm2. T-score: -2.5 Z-score: -0.7 Comparison from prior examination: The change in bone mineral density is -6.4 percent. IMPRESSION: Osteoporosis. Bone Density Report FRACTURE RISK: The estimated 10 year risk for a major osteoporosis-related fracture is 15 % and for a hip fracture is 6.2 %. (FRAX version 3.08). RECOMMENDATIONS: General recommendations for prevention of bone loss include: 8831-1124 mg calcium intake per day for adults >50yrs, and no history of renal calculi 800-1000 IU of vitamin D3 per day for adults >50yrs, and no history of renal calculi Weight bearing exercise Discontinue smoking Avoid excessive use of caffeine, soft drinks, and alcoholic beverages. In addition, balance training and fall prevention programs can help reduce the risk of fractures. Pharmacologic treatment recommendations: Initiate pharmacologic treatment in patients with: -Hip or vertebral fracture. -In those with T scores spine by DXA -In postmenopausal women and men age 50 or older with low bone mass (T score between -1.0 and -2.5 [osteopenia]) at the femoral neck, total hip, or lumbar spine by DXA and a 10 year hip fracture probability >/= 3% or a 10 year major osteoporosis-related fracture probability >/= 20% based on the [place]-adapted WHO fracture risk model (FRAX). Current FDA-approved pharmacologic options for osteoporosis treatment include bisphosphonates (Fosamax), ibandronate (Boniva), risedronate (Actonel), zoledronic acid (Reclast), estrogens and other hormonal therapies (Evista), parathyroid hormone (Forteo), and denosumab (Prolia). Initiation of pharmacologic therapy should happen only after thorough medical evaluation, discussion of risks and benefits, and with regular monitoring of the therapeutic regimen. FOLLOW-UP RECOMMENDATIONS: Patients with osteoporosis or or at high risk for fracture should have follow-up bone density tests. For Medicare patients, routine testing is allowed every 2 years. Patients who have low bone mass (T score -2.0 to -2.49), who are currently on treatment for low bone mass, or having risk factors for accelerated bone loss (glucocorticoids, aromatase inhibitors, etc.), consider repeat DXA in 1-2 years. Patients with osteopenia and no risk factors may consider follow-up every 3-5 years. REFERENCES: National Osteoporosis Foundation. Clinician's Guide to Prevention and Treatment of Osteoporosis. Osteoporosis International. Vásquez, 2014. DXA Scan Screening, Reporting (FRAX Score) and Follow-up. [employer] Knowledge Evidence-Based Summaries. Critical access [facility] [employer] Education and Research. 2017 Bone Density Report Report Dictated on Final Dictating Physician: MD LIU LAUREN B Signed Date and Time: 11/20/2021 10:43 am Signed by: MD LIU LAUREN B Transcribed Date and Time: 11/20/2021 10:44 Normal [facility] Report Programmer Cytology Reporton 2021 Report Programmer Cytology Report . Pathology Reports Accession: Collected Date/Time: Received Date/Time: Pathologist: [id number] 11/06/2021 11:45 EDT 11/06/2021 18:00 EDT Report Programmer Cytology Report SPECIMEN: Specimen Description: Liquid Prep Specimen: Cervical/Endocervical Screening or Diagnostic: Screening RELEVANT HISTORY: LMP: menopausal SPECIMEN ADEQUACY: SATISFACTORY FOR EVALUATION ENDOCERVICAL/TRANSFORMAT IONAL ZONE COMPONENT PRESENCE CAN NOT BE DETERMINED DUE TO MARKED ATROPHY INTERPRETATION/RESULTS: NEGATIVE FOR INTRAEPITHELIAL LESION OR MALIGNANCY COMMENT: This Pap Test was successfully processed and evaluated with the assistance of the [employer] Prep Test Imaging System. Electronically Signed by Pathology report verified by [facility] Screened by: DW Electronically signed by Tiffany Spaulding Sign-Out Date: 11/15/2021 12:29 Performing Lab: [facility], [address] [place] [address] Disclaimer The Pap test is a screening test for cervical cancer. As evidenced by published data, it is sub ject to both inherent false negative and false positive results. Your patient's results should be interpreted in context with pertinent clinical history including gynecological examination. Normal [facility] ([place]) .Auto Diffon 11-06-2021 Basophil, Absolute 0.00 10 3/mcL Normal 0.00-0.19 [facility] ([place]) Comment on above: Performed By: #### C BC, ADIFF, ANEU, CMP, CRP, GFR #### [address] [address] Basophils/100 WBC (Bld) 0.2 % Normal 0.0-2.5 A [facility] ([place]) Comment on above: Performed By: #### C BC, ADIFF, ANEU, CMP, CRP, GFR #### [address] [address] Eosinophil, Absolute 0.10 10 3/mcL Normal 0.00-0.40 A [facility] ([place]) Comment on above: Performed By: #### C BC, ADIFF, ANEU, CMP, CRP, GFR #### [address] [address] Eosinophils/100 WBC (Bld) 1.2 % Normal 0.0-7.0 [facility] ([place]) Comment on above: Performed By: #### C BC, ADIFF, ANEU, CMP, CRP, GFR #### [address] [address] Lymphocyte, Absolute 2.10 10 3/mcL Normal 0.77-3.85 A [facility] ([place]) Comment on above: Performed By: #### C BC, ADIFF, ANEU, CMP, CRP, GFR #### [address] [address] Lymphocytes/100 WBC (Bld) 28.0 % Normal 10.0-50.0 [facility] ([place]) Comment on above: Performed By: #### C BC, ADIFF, ANEU, CMP, CRP, GFR #### [address] [address] Monocyte, Absolute 0.50 10 3/mcL Normal 0.15-1.00 [facility] ([place]) Comment on above: Performed By: #### C BC, ADIFF, ANEU, CMP, CRP, GFR #### [address] [address] Monocytes/100 WBC (Bld) 6.9 % Normal 1.7-13.0 A [facility] ([place]) Comment on above: Performed By: #### C BC, ADIFF, ANEU, CMP, CRP, GFR #### [address] [address] Neutrophils/100 WBC (Bld) 63.7 % Normal 37.0-80.0 [facility] ([place]) Comment on above: Performed By: #### C BC, ADIFF, ANEU, CMP, CRP, GFR #### [address] [address] .GFRon 11-06-2021 GFR Non- 80 ml/min/1.73sqm Normal [facility] ([place]) Comment on above: Result Comment: GFR Population mean for , Non- Americans Ages 20-29 = 116 mL/min/1.73 sq.m. Ages 30-39 = 107 mL/min/1.73 sq.m. Ages 40-49 = 99 mL/min/1.73 sq.m. Ages 50-59 = 93 mL/min/1.73 sq.m. Ages 60-69 = 85 mL/min/1.73 sq.m. Ages 70+ = 75 mL/min/1.73 sq.m. Chronic Kidney Disease: Less than 60 mL/min/1.73 square meters End Stage Renal Disease: Less than 15 mL/min/1.73 square meters Performed By: #### C BC, ADIFF, ANEU, CMP, CRP, GFR #### [address] [address] GFR 97 ml/min/1.73sqm Normal [facility] ([place]) Comment on above: Result Comment: GFR Population mean for , Non- Americans Ages 20-29 = 116 mL/min/1.73 sq.m. Ages 30-39 = 107 mL/min/1.73 sq.m. Ages 40-49 = 99 mL/min/1.73 sq.m. Ages 50-59 = 93 mL/min/1.73 sq.m. Ages 60-69 = 85 mL/min/1.73 sq.m. Ages 70+ = 75 mL/min/1.73 sq.m. Chronic Kidney Disease: Less than 60 mL/min/1.73 square meters End Stage Renal Disease: Less than 15 mL/min/1.73 square meters Performed By: #### C BC, ADIFF, ANEU, CMP, CRP, GFR #### [address] [address] .NEUABSon 11-06-2021 Neutrophil, Absolute 4.70 10 3/mcL Normal 2.85-6.16 A [facility] ([place]) Comment on above: Performed By: #### C BC, ADIFF, ANEU, CMP, CRP, GFR #### [address] [address] CBCon 11-06-2021 Erythrocyte distribution width (RBC) [Ratio] 13.8 % Normal 11.5-14.5 [facility] ([place]) Comment on above: Performed By: #### C BC, ADIFF, ANEU, CMP, CRP, GFR #### [address] [address] Hematocrit (Bld) [Volume fraction] 39.7 % Normal 37.0-47.0 [facility] ([place]) Comment on above: Performed By: #### C BC, ADIFF, ANEU, CMP, CRP, GFR #### [address] [address] Hgb 13.5 G/dL Normal 12.0-16.0 [facility] ([place]) Comment on above: Performed By: #### C BC, ADIFF, ANEU, CMP, CRP, GFR #### [address] [address] MCH (RBC) [Entitic mass] 32.5 pg High 27.0-31.2 [facility] ([place]) Comment on above: Performed By: #### C BC, ADIFF, ANEU, CMP, CRP, GFR #### [address] [address] MCHC 34.0 G/dL Normal 33.0-37.0 [facility] ([place]) Comment on above: Performed By: #### C BC, ADIFF, ANEU, CMP, CRP, GFR #### [address] [address] MCV (RBC) [Entitic vol] 95.5 fL High 80.0-94.0 [facility] ([place]) Comment on above: Performed By: #### C BC, ADIFF, ANEU, CMP, CRP, GFR #### [address] [address] Platelet 262 10 3/mcL Normal 130-400 [facility] ([place]) Comment on above: Performed By: #### C BC, ADIFF, ANEU, CMP, CRP, GFR #### [place] [id number] Platelet mean volume (Bld) [Entitic vol] 8.0 fL Normal 7.4-10.4 [facility] ([place]) Comment on above: Performed By: #### C BC, ADIFF, ANEU, CMP, CRP, GFR #### [address] [address] RBC 4.15 10 6/mcL Low 4.20-5.40 [facility] ([place]) Comment on above: Performed By: #### C BC, ADIFF, ANEU, CMP, CRP, GFR #### [address] [address] WBC 7.40 10 3/mcL Normal 4.60-10.80 [facility] ([place]) Comment on above: Performed By: #### C BC, ADIFF, ANEU, CMP, CRP, GFR #### [address] [address] CMPon 11-06-2021 Albumin Level 4.3 G/dL Normal 3.4-4.8 [facility]) Comment on above: Performed By: #### C BC, ADIFF, ANEU, CMP, CRP, GFR #### [address] [address] Albumin/Globulin [Mass ratio] 1.5 {ratio} Normal 1.1-2.5 [facility] ([place]) Comment on above: Performed By: #### C BC, ADIFF, ANEU, CMP, CRP, GFR #### [address] [address] ALP [Catalytic activity/Vol] 62 U/L Normal 40-135 [facility] ([place]) Comment on above: Performed By: #### C BC, ADIFF, ANEU, CMP, CRP, GFR #### [address] [address] ALT [Catalytic activity/Vol] 20 U/L Normal 14-59 [facility] ([place]) Comment on above: Performed By: #### C BC, ADIFF, ANEU, CMP, CRP, GFR #### [address] [address] AST [Catalytic activity/Vol] 22 U/L Normal 10-40 [facility] ([place]) Comment on above: Performed By: #### C BC, ADIFF, ANEU, CMP, CRP, GFR #### [address] [address] Bili Total 0.8 mg/dL Normal 0.2-1.0 [facility] ([place]) Comment on above: Result Comment: Use of this assay is not recommended for patients undergoing treatment with eltrombopag due to the potential for falsely elevated results. Performed By: #### C BC, ADIFF, ANEU, CMP, CRP, GFR #### [address] [address] BUN/Creatinine Ratio 29 ratio High 7-27 [facility] ([place]) Comment on above: Performed By: #### C BC, ADIFF, ANEU, CMP, CRP, GFR #### [address] [address] Calcium [Mass/Vol] 9.7 mg/dL Normal 8.4-10.2 [facility] ([place]) Comment on above: Performed By: #### C BC, ADIFF, ANEU, CMP, CRP, GFR #### [address] [address] Chloride [Moles/Vol] 103 mmol/L Normal 98-107 [facility] ([place]) Comment on above: Performed By: #### C BC, ADIFF, ANEU, CMP, CRP, GFR #### [address] [address] CO2 [Moles/Vol] 31 mmol/L Normal 23-31 [facility] ([place]) Comment on above: Performed By: #### C BC, ADIFF, ANEU, CMP, CRP, GFR #### [address] [address] Creatinine [Mass/Vol] 0.73 mg/dL Normal 0.55-1.02 [facility] ([place]) Comment on above: Performed By: #### C BC, ADIFF, ANEU, CMP, CRP, GFR #### [address] [address] Electrolyte Balance 7.0 mEq/L Normal 4.0-15.0 [facility] ([place]) Comment on above: Performed By: #### C BC, ADIFF, ANEU, CMP, CRP, GFR #### [address] [address] Globulin 2.9 G/dL Normal [facility] ([place]) Comment on above: Performed By: #### C BC, ADIFF, ANEU, CMP, CRP, GFR #### [address] [address] Glucose [Mass/Vol] 86 mg/dL Normal 80-115 [facility] ([place]) Comment on above: Performed By: #### C BC, ADIFF, ANEU, CMP, CRP, GFR #### [address] [address] Potassium [Moles/Vol] 4.8 mmol/L Normal 3.5-5.1 [facility] ([place]) Comment on above: Performed By: #### C BC, ADIFF, ANEU, CMP, CRP, GFR #### [address] [address] Sodium [Moles/Vol] 141 mmol/L Normal 136-145 [facility] ([place]) Comment on above: Performed By: #### C BC, ADIFF, ANEU, CMP, CRP, GFR #### [address] [address] Total Protein 7.2 G/dL Normal 6.4-8.2 [facility] ([place]) Comment on above: Performed By: #### C BC, ADIFF, ANEU, CMP, CRP, GFR #### [address] [address] Urea nitrogen [Mass/Vol] 21 mg/dL High 7-18 [facility] ([place]) Comment on above: Performed By: #### C BC, ADIFF, ANEU, CMP, CRP, GFR #### [address] [address] CRPon 11-06-2021 CRP [Mass/Vol] mg/L Normal 0.0-0.9 [facility] ([place]) Comment on above: Performed By: #### C BC, ADIFF, ANEU, CMP, CRP, GFR #### [place] [address] [place], [place] [address] LABORATORYOrdered By: Sarah Tan on 11-06-2021 Appearance (U) Clear (11/06/21 12:29 PM) Invalid Interpretation Code Clear AO Auto Urine SS Bilirubin Ql (U) Negative (11/06/21 12:29 PM) Invalid Interpretation Code Negative AO Auto Urine SS Color (U) Yellow (11/06/21 12:29 PM) Invalid Interpretation Code AO Auto Urine SS Glucose Test strip (U) [Mass/Vol] Negative Invalid Interpretation Code Negativemg/d L AO Auto Urine SS Hemoglobin Auto test strip (U) [Mass/Vol] Small *ABN* (11/06/21 12:29 PM) Invalid Interpretation Code Negative AO Auto Urine SS Ketones Ql (U) Negative Invalid Interpretation Code Negativemg/d L AO Auto Urine SS UA Leuk Est Negative (11/06/21 12:29 PM) Invalid Interpretation Code Negative AO Auto Urine SS UA Nitrite Negative (11/06/21 12:29 PM) Invalid Interpretation Code Negative AO Auto Urine SS UA pH 7.5 (11/06/21 12:29 PM) Invalid Interpretation Code 5.0 - 8.0 AO Auto Urine SS UA Protein Negative Invalid Interpretation Code Negativemg/d L AO Auto Urine SS UA Spec Grav 1.020 (11/06/21 12:29 PM) Invalid Interpretation Code 1.015-1.025 AO Auto Urine SS UA Specimen Type Clean Catch (11/06/21 12:29 PM) Invalid Interpretation Code AO Auto Urine SS UA Urobilinogen 0.2 E.U./dL Invalid Interpretation Code 0.2-1.0E.U./ dL AO Auto Urine SS LABORATORYOrdered By: Wesley Prakash on 11-06-2021 Albumin BCP dye [Mass/Vol] 4.3 G/dL Invalid Interpretation Code 3.4 - 4.8 G/dL AO ADM SS Albumin/Globulin [Mass ratio] 1.5 {ratio} Invalid Interpretation Code 1.1 - 2.5 ratio AO ADM SS ALP [Catalytic activity/Vol] 62 U/L Invalid Interpretation Code 40 - 135 U/L AO ADM SS ALT With P-5'-P [Catalytic activity/Vol] 20 U/L Invalid Interpretation Code 14 - 59 U/L AO ADM SS AST With P-5'-P [Catalytic activity/Vol] 22 U/L Invalid Interpretation Code 10 - 40 U/L AO ADM SS Bilirubin [Mass/Vol] 0.8 mg/dL Invalid Interpretation Code 0.2 - 1.0 mg/dL AO ADM SS C-Reactive Protein mg/dL Invalid Interpretation Code 0.0 - 0.9 mg/dL AO Chemistry S Calcium [Mass/Vol] 9.7 mg/dL Invalid Interpretation Code 8.4 - 10.2 mg/dL AO ADM SS Chloride [Moles/Vol] 103 mmol/L Invalid Interpretation Code 98 - 107 mmol/L AO ADM SS CO2 [Moles/Vol] 31 mmol/L Invalid Interpretation Code 23 - 31 mmol/L AO ADM SS Creatinine [Mass/Vol] 0.73 mg/dL Invalid Interpretation Code 0.55 - 1.02 mg/dL AO ADM SS Electrolyte Balance 7.0 mEq/L Invalid Interpretation Code 4.0 - 15.0 mEq/L AO ADM SS Globulin 2.9 G/dL Invalid Interpretation Code AO ADM SS Glucose [Mass/Vol] 86 mg/dL Invalid Interpretation Code 80 - 115 mg/dL AO ADM SS Potassium [Moles/Vol] 4.8 mmol/L Invalid Interpretation Code 3.5 - 5.1 mmol/L AO ADM SS Protein [Mass/Vol] 7.2 G/dL Invalid Interpretation Code 6.4 - 8.2 G/dL AO ADM SS Sodium [Moles/Vol] 141 mmol/L Invalid Interpretation Code 136 - 145 mmol/L AO ADM SS Urea nitrogen [Mass/Vol] 21 mg/dL Invalid Interpretation Code 7 - 18 mg/dL AO ADM SS Urea nitrogen/Creatinine [Mass ratio] 29 ratio Invalid Interpretation Code 7 - 27 ratio AO ADM SS LABORATORYOrdered By: Sarah Macedo on 11-06-2021 Basophil, Absolute 0.00 103/mcL Invalid Interpretation Code 0.00 - 0.19 10^3/mcL AO Auto Heme SS Basophils/100 WBC (Bld) 0.2 % Invalid Interpretation Code 0.0 - 2.5 % AO Auto Heme SS Eosinophil, Absolute 0.10 103/mcL Invalid Interpretation Code 0.00 - 0.40 10^3/mcL AO Auto Heme SS Eosinophils/100 WBC (Bld) 1.2 % Invalid Interpretation Code 0.0 - 7.0 % AO Auto Heme SS Erythrocyte distribution width (RBC) [Ratio] 13.8 % Invalid Interpretation Code 11.5 - 14.5 % AO Auto Heme SS Hematocrit (Bld) [Volume fraction] 39.7 % Invalid Interpretation Code 37.0 - 47.0 % AO Auto Heme SS Hemoglobin (Bld) [Mass/Vol] 13.5 G/dL Invalid Interpretation Code 12.0 - 16.0 G/dL AO Auto Heme SS Lymphocyte, Absolute 2.10 103/mcL Invalid Interpretation Code 0.77 - 3.85 10^3/mcL AO Auto Heme SS Lymphocytes/100 WBC (Bld) 28.0 % Invalid Interpretation Code 10.0 - 50.0 % AO Auto Heme SS MCH (RBC) [Entitic mass] 32.5 pg Invalid Interpretation Code 27.0 - 31.2 pg AO Auto Heme SS MCHC (RBC) [Mass/Vol] 34.0 G/dL Invalid Interpretation Code 33.0 - 37.0 G/dL AO Auto Heme SS MCV (RBC) [Entitic vol] 95.5 fL Invalid Interpretation Code 80.0 - 94.0 fL AO Auto Heme SS Monocyte, Absolute 0.50 103/mcL Invalid Interpretation Code 0.15 - 1.00 10^3/mcL AO Auto Heme SS Monocytes/100 WBC (Bld) 6.9 % Invalid Interpretation Code 1.7 - 13.0 % AO Auto Heme SS Neutrophil, Absolute 4.70 103/mcL Invalid Interpretation Code 2.85 - 6.16 10^3/mcL AO Auto Heme SS Neutrophils/100 WBC (Bld) 63.7 % Invalid Interpretation Code 37.0 - 80.0 % AO Auto Heme SS Platelet mean volume (Bld) [Entitic vol] 8.0 fL Invalid Interpretation Code 7.4 - 10.4 fL AO Auto Heme SS Platelets (Bld) [#/Vol] 262 103/mcL Invalid Interpretation Code 130 - 400 10^3/mcL AO Auto Heme SS RBC (Bld) [#/Vol] 4.15 106/mcL Invalid Interpretation Code 4.20 - 5.40 10^6/mcL AO Auto Heme SS WBC (Bld) [#/Vol] 7.40 103/mcL Invalid Interpretation Code 4.60 - 10.80 10^3/mcL AO Auto Heme SS LABORATORYOrdered By: SYSTEM SYSTEM on 11-06-2021 GFR 97 ml/min/1.73sqm Invalid Interpretation Code AO Chemistry S GFR Non- 80 ml/min/1.73sqm Invalid Interpretation Code AO Chemistry S UAon 11-06-2021 Color (U) Yellow Normal [facility] ([place]) Comment on above: Performed By: #### U A #### [address] [address] Glucose (U) [Mass/Vol] Negative Normal Negative [facility] ([place]) Comment on above: Performed By: #### U A #### [address] [address] Ketones Ql (U) Negative Normal Negative [facility] ([place]) Comment on above: Performed By: #### U A #### [address] [address] UA Appear Clear Normal Clear [facility] ([place]) Comment on above: Performed By: #### U A #### [address] [address] UA Blood Small Abnormal Negative [facility] ([place]) Comment on above: Performed By: #### U A #### [address] [address] UA Leuk Est Negative Normal Negative [facility] ([place]) Comment on above: Performed By: #### U A #### [address] [address] UA Nitrite Negative Normal Negative [facility] ([place]) Comment on above: Performed By: #### U A #### [address] [address] UA pH 7.5 Normal 5.0 - 8.0 [facility] ([place]) Comment on above: Performed By: #### U A #### [address] [address] UA Protein Negative Normal Negative [facility] ([place]) Comment on above: Performed By: #### U A #### [address] [address] UA Spec Grav 1.020 Normal 1.015-1.025 [facility] ([place]) Comment on above: Performed By: #### U A #### [place] [address] UA Specimen Type Clean Catch Normal [facility] ([place]) Comment on above: Performed By: #### U A #### [place] [address] UA Urobilinogen 0.2 E.U./dL Normal 0.2-1.0 [facility] ([place]) Comment on above: Performed By: #### U A #### [place] [address] Urobilinogen (U) [Mass/Vol] Negative Normal Negative [facility] ([place]) Comment on above: Performed By: #### U A #### [place] [address] HISTORY PHYSICALon 9 HISTORY PHYSICAL HNO ID: [id number] Author: Efren Gillette Service: (none) Author Type: Physician Type: HANDP Filed: 08/25/2018 11:18 AM Note Text: HISTORY AND PHYSICAL Claribel Feilds, 63 year old female Current history and physical on file: No Is a new History and Physical required for today's visit? Yes Indication for procedure: Abdominal pain PROCEDURE(S) SCHEDULED FOR: EGD (Esophagogastroduodenosc opy) with or without biopsies, removal of polyps or lesions, dilation ( any means), treatment of bleeding ( any means), Barrx treatment of Joe's Esophagus, image tube placement or cryo therapy treatment based on clinical findings. BASELINE BEHAVIOR: Calm BASELINE ORIENTATION: A AND O x3 All medications and allergies reviewed: Yes Skin Assessment: Warm dry muscus membranes pink Airway/Respiratory Assessment: Airway: visualization of the uvula- Yes Mouth: opening greater than 2 fingerbreadths- Yes Neck: full range of motion- Yes Breath sounds clear/equal- Yes Cardiac Assessment: Regular rate and rhythm without murmur Abdominal Assessment: Abdomen soft, non-tender, no masses or organomegaly. Sedation Plan: MAC Additional Comments: None Efren Gillette MD [facility] OBSOLETEon 08-25-2018 OBSOLETE Procedure (ASCNOR) -------- CLARIBEL FIELDS ([id number]) 1955 F Date Time Provider Department 08/25/18 11:00 AM EFREN GILLETTE During your visit today, we recorded the following information about you: Temperature Pulse Respiration Blood pressure 98.6 degrees 72/minute 16/minute 110/65 Weight Height 48.5 kg 1.651 m Heaven Salcedo RN 08/25/2018 10:14 AM Signed AMBULATORY PATIENT EDUCATION NOTE TOPIC: GI PROCEDURES: esophagogastroduodenosco py (EGD) READINESS TO LEARN INSTRUCTION PROVIDED TO: Patient, readness to learn accessed prior to procedure, Family member and Patient and family member COGNITIVE ABILITY: Alert and oriented PTED MOTIVATION TO LEARN: Interested FAMILY SUPPORT: High - Very involved in pt care IPATIENT LEARNS BEST BY: Individual Instruction Written Instruction - Hand-outs Verbal Instruction FACTORS AFFECTING LEARNING: None PHYSICAL LIMITATIONS AFFECTING LEARNING: None Heaven Salcedo RN 08/25/2018 10:09 AM Signed Discharge instructions given and patient voices understanding. All questions answered. Heaven Gillette MD 08/25/2018 11:18 AM Signed HISTORY AND PHYSICAL Claribel Fields, 63 year old female Current history and physical on file: No Is a new History and Physical required for today's visit? Yes Indication for procedure: Abdominal pain PROCEDURE(S) SCHEDULED FOR: EGD (Esophagogastroduodenosc opy) with or without biopsies, removal of polyps or lesions, dilation ( any means), treatment of bleeding ( any means), Barrx treatment of Joe's Esophagus, image tube placement or cryo therapy treatment based on clinical findings. BASELINE BEHAVIOR: Calm BASELINE ORIENTATION: A AND O x3 All medications and allergies reviewed: Yes Skin Assessment: Warm dry muscus membranes pink Airway/Respiratory Assessment: Airway: visualization of the uvula- Yes Mouth: opening greater than 2 fingerbreadths- Yes Neck: full range of motion- Yes Breath sounds clear/equal- Yes Cardiac Assessment: Regular rate and rhythm without murmur Abdominal Assessment: Abdomen soft, non-tender, no masses or organomegaly. Sedation Plan: MAC Additional Comments: None MD Patricia Olivo RN 08/25/2018 12:07 PM Signed POST OP LEARNING RESPONSE INSTRUCTION PROVIDED TO: Patient and Spouse METHOD OF INSTRUCTION: Written instruction - handouts Verbal instruction PATIENT / FAMILY RESPONSE: Verbalizes understanding of: POST-PROCEDURE INSTRUCTIONS-Correct actions to take to reduce post procedure complications FOLLOW-UP PLAN: Patient instructed to call with any further issues SUPPLEMENTAL MATERIAL: Post op discharge instructions Brochures given to patient: BROCHURE [[id number]] schatzkis ring, hiatal hernia, h-pylori REFERRAL (RECOMMENDATION): Return as scheduled Electronically Signed By: Patricia Ruiz RN In Department: AMBULATORY SURGERY Charleen Saavedra APRN.CRNA 08/25/2018 12:22 PM Signed POST ANESTHESIA EVALUATION NOTE SERVICE DATE: 08/25/2018 SERVICE TIME: 12:22 PM : 1955 Vitals: 08/25/18 1025 08/25/18 1111 Temp: 36.5 ?C (97.7 ?F) 37 ?C (98.6 ?F) 08/25/18 1025 08/25/18 1111 BP: 123/83 110/65 08/25/18 1025 08/25/18 1111 Pulse: 68 72 08/25/18 1025 08/25/18 1111 Resp: 16 16 08/25/18 1025 08/25/18 1111 SpO2: 100% 97% Validated Vital Signs: Yes POST ANES STATUS: No apparent anesthetic complications. The patient is appropriately hydrated with stable respiratory and cardiovascular status. Patient has safe and adequate airway control. The patient has appropriate pain relief and no significant post operative nausea or vomiting. The patient has achieved baseline mental status. Further assessment by Anesthesia Service: None Other Remarks: SIGNATURE: Charleen Saavedra APRN.CRNA PATIENT NAME: Claribel Fields DATE: August 25, 2018 TIME: 12:22 PM PAGER/CONTACT #: [phone] Referring Provider: EFREN GILLETTE [[id number]] Allergies As of Date: 08/25/2018 Noted Allergy Reaction CODEINE 08/21/2018 8 - GI Upset Date Reviewed: 08/25/2018 Reviewed by: Heaven Salcedo RN - Fully Assessed Reason for Visit: Outpatient Endoscopy [481] Cmt: pain. nausea and vomiting Visit Diagnosis:Generalized abdominal pain [R10.84] Order(s):EGD GEN ANES [[id number]] Order #: [id number]. #:[id number] ENDO SURGICAL PATHOLOGY [[id number]] Order #: [id number] Prescriptions as of 08/25/2018 Sig: PANTOPRAZOLE 40 MG TABLET,DEL* VITAMIN D2 50,000 UNIT CAPSULE Problem List As Of Date 08/25/2018 Noted Resolved Generalized abdominal pain [R10.84] INVALID FOR* Change in bowel habits [R19.4] INVALID FOR* Abnormal weight loss [R63.4] INVALID FOR* Nausea with vomiting [R11.2] INVALID FOR* History of colonic polyps [Z86.010] INVALID FOR* Other instructions from your clinician: Discharge instructions given and patient voices understanding. All questions answered. Heaven Salcedo RN Visit Notes: >> Heaven Salcedo RN Aug 25, 2018 10:09 AM Status: Signed AMBULATORY PATIENT EDUCATION NOTE TOPIC: GI PROCEDURES: esophagogastroduodenosco py (EGD) READINESS TO LEARN INSTRUCTION PROVIDED TO: Patient, readness to learn accessed prior to procedure, Family member and Patient and family member COGNITIVE ABILITY: Alert and oriented PTED MOTIVATION TO LEARN: Interested FAMILY SUPPORT: High - Very involved in pt care IPATIENT LEARNS BEST BY: Individual Instruction Written Instruction - Hand-outs Verbal Instruction FACTORS AFFECTING LEARNING: None PHYSICAL LIMITATIONS AFFECTING LEARNING: None Heaven Salcedo RN >> Patricia Ruiz RN jone Aug 25, 2018 11:38 AM Status: Signed POST OP LEARNING RESPONSE INSTRUCTION PROVIDED TO: Patient and Spouse METHOD OF INSTRUCTION: Written instruction - handouts Verbal instruction PATIENT / FAMILY RESPONSE: Verbalizes understanding of: POST-PROCEDURE INSTRUCTIONS-Correct actions to take to reduce post procedure complications FOLLOW-UP PLAN: Patient instructed to call with any further issues SUPPLEMENTAL MATERIAL: Post op discharge instructions Brochures given to patient: BROCHURE [[id number]] schatzkis ring, hiatal hernia, h-pylori REFERRAL (RECOMMENDATION): Return as scheduled Electronically Signed By: Patricia Ruiz RN In Department: AMBULATORY SURGERY >> Charleen Vivar Aug 25, 2018 12:22 PM Status: Signed POST ANESTHESIA EVALUATION NOTE SERVICE DATE: 08/25/2018 SERVICE TIME: 12:22 PM : 1955 Vitals: 08/25/18 1025 08/25/18 1111 Temp: 36.5 ?C (97.7 ?F) 37 ?C (98.6 ?F) 08/25/18 1025 08/25/18 1111 BP: 123/83 110/65 08/25/18 1025 08/25/18 1111 Pulse: 68 72 08/25/18 1025 08/25/18 1111 Resp: 16 16 08/25/18 1025 08/25/18 1111 SpO2: 100% 97% Validated Vital Signs: Yes POST ANES STATUS: No apparent anesthetic complications. The patient is appropriately hydrated with stable respiratory and cardiovascular status. Patient has safe and adequate airway control. The patient has appropriate pain relief and no significant post operative nausea or vomiting. The patient has achieved baseline mental status. Further assessment by Anesthesia Service: None Other Remarks: SIGNATURE: Charleen Saavedra APRN.CRNA PATIENT NAME: Claribel Fields DATE: August 25, 2018 TIME: 12:22 PM PAGER/CONTACT #: [phone] Disposition: Return for As scheduled. Follow-up and Disposition History Recorded Encounter Status:Closed by EFREN GILLETTE on 08/25/18 Normal [facility] SURGICAL PATHOLOGYon 019 SURGICAL PATHOLOGY Specimen originated from [facility] Specimen #: [id number] Submitting Physician: EFREN GILLETTE __ FINAL DIAGNOSIS 1. Duodenum, second portion, biopsy (A) - Duodenal mucosa with no significant pathologic change. 2. Stomach, antrum, biopsy (B) - Mixed gastric antral/oxyntic-type mucosa with no significant pathologic change. - No intestinal metaplasia or morphologic evidence of Helicobacter pylori organisms. ES/dss 08/27/2018 Willa Galindo M.D. (Electronic Signature) SPECIMEN SUBMITTED A: SECOND PORTION OF DUODENUM, BIOPSY B: ANTRUM, BIOPSY CLINICAL DATA ABD. PAIN GROSS DESCRIPTION A. Received in formalin are two pieces of cohen, soft tissue aggregating to 0.6 x 0.2 x 0.2 cm. Totally submitted in one cassette. B. Received in formalin are two pieces of cohen, soft tissue aggregating to 0.4 x 0.2 x 0.2 cm. Totally submitted in one cassette. Gross examination performed at [facility], [address] [place] [address] 08/26/2018 3:59:00 PM Date of Report: 08/27/2018 Date of Procedure: 08/25/2018 Date of Receipt: 08/26/2018 Submitted by: EFREN GILLETTE Location: [facility] Diagnostic [place] [address]. Normal [facility] CNOVon 08-21-2018 CNOV Office Visit (GSTNOR ) -------- CLARIBEL FIELDS ([id number]) 1955 F Date Time Provider Department 08/21/18 9:30 AM EFREN GILLETTE During your visit today, we recorded the following information about you: Pulse Blood pressure Weight Height 79/minute 108/70 48.5 kg 1.651 m Efren Gillette MD 08/21/2018 10:15 AM Signed generalized abdominal pain; Diarrhea; and Weight Loss (h/o colonic polyps (hyperplastic and adenomatous)) HPI:Claribel Fields is a 63 year old female who presents for generalized abdominal pain; Diarrhea; and Weight Loss (h/o colonic polyps (hyperplastic and adenomatous). She abdominal pain 2014; US abdomen was negative; colonoscopy 2015 showed multiple colon polyps. She was doing well until May 2018 when she developed abdominal pain; diffuse; off and on; once a month ; pain is 6/10; pain lasts for 2-3 days; pain does not wake her up at night. She has had episodes of nausea and vomiting. She has had episodes of diarrhea once a month. She has lost about 10 lbs over 1 year. Record Review: [facility] / Outside records reviewed. PAST MEDICAL HISTORY Diagnosis Date - Colon polyps adenomatous and hyperplastic - IBS (irritable bowel syndrome) - Sciatica - Sinusitis - TMJ (dislocation of temporomandibular joint) - Weight loss PAST SURGICAL HISTORY Procedure Laterality Date - COLONOSCOPY 03/01/2016 colon polyps - PAST SURGICAL HISTORY OF removal of ovarian cyst - PAST SURGICAL HISTORY OF breast cyst removal - TUBAL LIGATION Allergies: ALLERGIES Allergen Reactions - Codeine GI Upset Medications: pantoprazole DR (PROTONIX) 40 mg tablet VITAMIN D 50,000 unit capsule FAMILY HISTORY Problem Relation Age of Onset - COPD Father - Diabetes Maternal Grandmother - Diabetes Paternal Grandmother Employer And Job Title: None on file Years Of Education Completed: Not specified Marital Status: Social History Substance Use Topics - Smoking status: Current Every Day Smoker - Smokeless tobacco: Not on file - Alcohol use Yes Comment: rare Review of Systems: Review of Systems Gastrointestinal: Positive for abdominal pain and diarrhea. Are you taking any blood thinners? No Physical Examination: BP 108/70 Pulse 79 Ht 5' 5 (1.65m) Wt 107 lb (48.5kg) SpO2 95% BMI 17.81 kg/(m2). Physical Exam Constitutional: She is oriented to person, place, and time. No acute distress HENT: Head: Normocephalic. Eyes: Pupils are equal, round, and reactive to light. Conjunctivae and EOM are normal. Neck: Normal range of motion. Neck supple. Cardiovascular: Normal rate, regular rhythm, normal heart sounds and intact distal pulses. Pulmonary/Chest: Effort normal and breath sounds normal. Abdominal: Soft. Bowel sounds are normal. Musculoskeletal: Normal range of motion. Neurological: She is alert and oriented to person, place, and time. She has normal reflexes. Skin: Skin is warm and dry. Psychiatric: She has a normal mood and affect. Her behavior is normal. Judgment and thought content normal. Vitals reviewed. Assessment: Generalized abdominal pain Change in bowel habits Abnormal weight loss Non-intractable cyclical vomiting with nausea History of colonic polyps Plan: Office Visit on 08/21/18 -EGD GEN ANES Colonoscopy if EGD negative US abdomen if above negative Consultation requested by Dr. Lane for an opinion regarding Abdominal pain. My final recommendations will be communicated back to the requesting physician by way of shared Medical record or letter to requesting physician via [place] mail. I have confirmed and edited as necessary, the PFSH and ROS obtained by others. Return in about 2 months (around 10/19/2018). Efren Gillette MD DATE: 08/21/18 TIME: 10:13 AM Referring Provider: SONU LANE [[id number]] Allergies As of Date: 08/21/2018 Noted Allergy Reaction CODEINE 08/21/2018 8 - GI Upset Date Reviewed: 08/21/2018 Reviewed by: Mayuri Stephens LPN - Fully Assessed Reason for Visit: generalized abdominal pain [Other] Diarrhea [35] Weight Loss [882] Cmt: h/o colonic polyps (hyperplastic and adenomatous) Reason For Visit History Recorded Visit Diagnoses:Generalized abdominal pain [R10.84] Change in bowel habits [R19.4] Abnormal weight loss [R63.4] Non-intractable cyclical vomiting with nausea [G43.A0] History of colonic polyps [Z86.010] Order(s):EGD GEN ANES [[id number]] Order #: [id number] FUTURE Prescriptions as of 08/21/2018 Sig: PANTOPRAZOLE 40 MG TABLET,DEL* VITAMIN D2 50,000 UNIT CAPSULE Problem List As Of Date 08/21/2018 Noted Resolved Generalized abdominal pain [R10.84] INVALID FOR* Change in bowel habits [R19.4] INVALID FOR* Abnormal weight loss [R63.4] INVALID FOR* Nausea with vomiting [R11.2] INVALID FOR* History of colonic polyps [Z86.010] INVALID FOR* Disposition: Return in about 2 months (around 10/19/2018). Follow-up and Disposition History Recorded Encounter Status:Closed by EFREN GILLETTE on 08/21/18 Normal [facility] PROGRESSon 08-21-2018 Protein mass conc HNO ID: [id number] Author: Efren Gillette Service: (none) Author Type: Physician Type: Progress Notes Filed: 08/21/2018 10:15 AM Note Text: generalized abdominal pain; Diarrhea; and Weight Loss (h/o colonic polyps (hyperplastic and adenomatous)) HPI:Claribel Fields is a 63 year old female who presents for generalized abdominal pain; Diarrhea; and Weight Loss (h/o colonic polyps (hyperplastic and adenomatous). She abdominal pain 2014; US abdomen was negative; colonoscopy 2015 showed multiple colon polyps. She was doing well until May 2018 when she developed abdominal pain; diffuse; off and on; once a month ; pain is 6/10; pain lasts for 2-3 days; pain does not wake her up at night. She has had episodes of nausea and vomiting. She has had episodes of diarrhea once a month. She has lost about 10 lbs over 1 year. Record Review: [facility] / Outside records reviewed. PAST MEDICAL HISTORY Diagnosis Date - Colon polyps adenomatous and hyperplastic - IBS (irritable bowel syndrome) - Sciatica - Sinusitis - TMJ (dislocation of temporomandibular joint) - Weight loss PAST SURGICAL HISTORY Procedure Laterality Date - COLONOSCOPY 03/01/2016 colon polyps - PAST SURGICAL HISTORY OF removal of ovarian cyst - PAST SURGICAL HISTORY OF breast cyst removal - TUBAL LIGATION Allergies: ALLERGIES Allergen Reactions - Codeine GI Upset Medications: pantoprazole DR (PROTONIX) 40 mg tablet VITAMIN D 50,000 unit capsule FAMILY HISTORY Problem Relation Age of Onset - COPD Father - Diabetes Maternal Grandmother - Diabetes Paternal Grandmother Employer And Job Title: None on file Years Of Education Completed: Not specified Marital Status: Social History Substance Use Topics - Smoking status: Current Every Day Smoker - Smokeless tobacco: Not on file - Alcohol use Yes Comment: rare Review of Systems: Review of Systems Gastrointestinal: Positive for abdominal pain and diarrhea. Are you taking any blood thinners? No Physical Examination: BP 108/70 Pulse 79 Ht 5' 5 (1.65m) Wt 107 lb (48.5kg) SpO2 95% BMI 17.81 kg/(m2). Physical Exam Constitutional: She is oriented to person, place, and time. No acute distress HENT: Head: Normocephalic. Eyes: Pupils are equal, round, and reactive to light. Conjunctivae and EOM are normal. Neck: Normal range of motion. Neck supple. Cardiovascular: Normal rate, regular rhythm, normal heart sounds and intact distal pulses. Pulmonary/Chest: Effort normal and breath sounds normal. Abdominal: Soft. Bowel sounds are normal. Musculoskeletal: Normal range of motion. Neurological: She is alert and oriented to person, place, and time. She has normal reflexes. Skin: Skin is warm and dry. Psychiatric: She has a normal mood and affect. Her behavior is normal. Judgment and thought content normal. Vitals reviewed. Assessment: Generalized abdominal pain Change in bowel habits Abnormal weight loss Non-intractable cyclical vomiting with nausea History of colonic polyps Plan: Office Visit on 08/21/18 -EGD GEN ANES Colonoscopy if EGD negative US abdomen if above negative Consultation requested by Dr. Lane for an opinion regarding Abdominal pain. My final recommendations will be communicated back to the requesting physician by way of shared Medical record or letter to requesting physician via [place] mail. I have confirmed and edited as necessary, the PFSH and ROS obtained by others. Return in about 2 months (around 10/19/2018). Efren Gillette MD DATE: 08/21/18 TIME: 10:13 AM Normal [facility] Vital Signs Date Time Vital Sign Value Performing Clinician Babari teodoro 08-10-2024 13:11-0500 Body height 160.[address] Sonu [address] MD [facility] 08-10-2024 13:11-0500 Body mass index (BMI) [Ratio] 18.6 kg/m2 Dr. Sonu Lane MD [facility] 08-10-2024 13:11-0500 Body weight 47.[address] Sonu [address] MD [facility] 02-19-2023 11:21-0400 Body height 160.[address] Work Phone: [facility] 02-19-2023 11:21-0400 Body mass index (BMI) [Ratio] 16.8 kg/m2 Dr. Sonu Lane Work Phone: [facility] 02-19-2023 11:21-0400 Body weight 43.[address] Work Phone: [facility] 01-30-2023 08:37-0400 Body temperature 98.2 [degF] Dr. Sonu Lane Work Phone: [facility] 01-30-2023 08:37-0400 Diastolic blood pressure 101 mm[Hg] Dr. Sonu Lane Work Phone: [facility] 01-30-2023 08:37-0400 Heart rate 88 /min Dr. Sonu Lane Work Phone: [facility] 01-30-2023 08:37-0400 Respiratory rate 16 /min Dr. Sonu Lane Work Phone: [facility] 01-30-2023 08:37-0400 SaO2% (BldA) [Mass fraction] 100 % Dr. Sonu Lane Work Phone: [facility] 01-30-2023 08:37-0400 Systolic blood pressure 122 mm[Hg] Dr. Sonu Lane Work Phone: [facility] 01-30-2023 07:14-0400 Body height 160.[address] Work Phone: [facility] 01-30-2023 07:14-0400 Body mass index (BMI) [Ratio] 16.5 kg/m2 Dr. Sonu Lane Work Phone: [facility] 01-30-2023 07:14-0400 Body weight 42.[address] Work Phone: [facility] 12-11-2022 10:24-0400 Body height 165.[address] Work Phone: [facility] 12-11-2022 10:24-0400 Body mass index (BMI) [Ratio] 16.5 kg/m2 Dr. Sonu Lane Work Phone: [facility] 12-11-2022 10:24-0400 Body weight 45.[address] Work Phone: [facility] 12-11-2022 10:24-0400 Diastolic blood pressure 82 mm[Hg] Dr. Sonu Lane Work Phone: [facility] 12-11-2022 10:24-0400 Heart rate 67 /min Dr. Sonu Lane Work Phone: [facility] 12-11-2022 10:24-0400 SaO2% (BldA) [Mass fraction] 97 % Dr. Sonu Lane Work Phone: [facility] 12-11-2022 10:24-0400 Systolic blood pressure 124 mm[Hg] Dr. Sonu Lane Work Phone: [facility] 11-12-2022 13:18-0400 Body mass index (BMI) [Ratio] 16.6 kg/m2 Dr. Sonu Lane Work Phone: [facility] 11-12-2022 13:18-0400 Body weight 45.[address] Work Phone: [facility] 11-12-2022 12:03-0400 Body temperature 97.3 [degF] Dr. Sonu Lane Work Phone: [facility] 11-12-2022 12:03-0400 Diastolic blood pressure 69 mm[Hg] Dr. Sonu Lane Work Phone: [facility] 11-12-2022 12:03-0400 Heart rate 67 /min Dr. Sonu Lane Work Phone: [facility] 11-12-2022 12:03-0400 Respiratory rate 18 /min Dr. Sonu Lane Work Phone: [facility] 11-12-2022 12:03-0400 SaO2% (BldA) [Mass fraction] 94 % Dr. Sonu Lane Work Phone: [facility] 11-12-2022 12:03-0400 Systolic blood pressure 116 mm[Hg] Dr. Sonu Lane Work Phone: [facility] Encounters Encounter Date Encounter Type Care Provider Facility Start: 11-16-2024 End: 11-16-[address] Facility:[facility] Start: 09-23-2024 End: 09-23-[address] Sonu [address] MD [facility] Work Phone: Start: 09-23-2024 End: 09-23-[address] Sonu Lane MD -[facility] Work Phone: Start: 09-23-2024 End: 09-23-[address] Facility:[facility] Start: 08-26-2024 End: 08-26-2024 ambulatory Tiffany Reyes RN [facility] Clinical Communication Start: 08-26-2024 End: 08-26-2024 Patient encounter procedure Tiffany Reyes RN [facility] Clinical Communication Start: 08-25-2024 End: 08-25-[address] [facility] Start: 08-25-2024 End: 08-25-2024 ambulatory Alisha Piña Facility:[facility] Start: 08-10-2024 End: 08-10-2024 Patient encounter procedure Levi Mercado DO -[facility] Work Phone: Start: 08-10-2024 End: 08-10-[address] Facility:[facility] Start: 04-23-2024 End: 04-23-[address] Facility:[facility] Start: 02-03-[address] Facilit y:[facility] Start: 01-06-2024 End: 01-06-2024 ambulatory Levi Mercado Facility:[facility] Start: 01-06-2024 End: 01-06-2024 ambulatory Alisha Piña Facility:[facility] Start: 12-30-2023 End: 12-30-[address] Facility:[facility] Start: 08-01-2023 End: 08-01-[address] Work Phone: [facility] Work Phone: Start: 07-29-2023 End: 07-29-[address] Work Phone: [facility] Work Phone: Start: 07-29-2023 End: 07-29-[address] Work Phone: [facility]-Cat Scan, [facility] Work Phone: Start: 07-17-2023 End: 07-17-[address] Sonu [address] Work Phone: [facility]-Outpatient Breast Imaging Work Phone: Start: 07-11-2023 Transcribe Orders Curt kelley MD Work Phone: [facility] Comment on above: Angioneurotic edema, subsequent encounter (Primary Dx); Unspecified abdominal pain Start: 04-23-2023 End: 04-23-[address] Son[address] Work Phone: [facility] Work Phone: Start: 04-23-2023 End: 04-23-[address] Work Phone: [facility] Work Phone: Start: 02-19-2023 End: 02-19-[address] Work Phone: [facility] Work Phone: Start: 02-19-2023 End: 02-19-[address] Work Phone: [facility] Work Phone: Start: 02-12-2023 End: 02-12-[address] Work Phone: [facility] Work Phone: Start: 02-12-2023 End: 02-12-[address] Sonu [address] Work Phone: [facility]-Laboratory Work Phone: Start: 01-30-2023 Non-patient / Non-visit Dr. Diandra Lane Work Phone: [facility] Start: 01-30-2023 End: 01-30-2023 Admission to same day surgery center Dr. Sonu Lane Work Phone: [facility]-Endoscopy Work Phone: Start: 01-30-2023 End: 01-30-[address] Work Phone: [facility] Work Phone: Start: 12-19-2022 End: 12-19-[address] Work Phone: [facility] Work Phone: Start: 12-19-2022 End: 12-19-[address] Work Phone: [facility] Start: 12-11-2022 End: 12-11-[address] Work Phone: [facility]-Laboratory Start: 12-11-2022 End: 12-11-[address] Work Phone: [facility] Start: 11-12-2022 End: 11-12-2022 Emergency department patient visit Dr. Sonu Lane Work Phone: [facility]-Emergency Department Start: 06-17-2022 Transcribe Orders Sonu beckett MD Work Phone: [facility] System Central Scheduling Comment on above: Unspecified abdomina l pain (Primary Dx) Start: 11-20-2021 End: 11-20-2021 Subsequent hospital visit by physician Pooja Edwards MD Work Phone: [facility] Comment on above: Arrived Start: 11-06-2021 End: 11-10-2021 Outreach Lab POOJA EDWARDS MD [facility] Start: 11-06-2021 End: 11-06-2021 Patient encounter procedure POOJA EDWARDS MD [facility] Start: 08-25-2018 End: 08-26-2018 Patient encounter procedure EFREN GILLETTE [facility] Start: 08-21-2018 End: 08-24-2018 Patient encounter procedure EFREN STEPHENR [facility] Procedures Date Procedure Procedure Detail Performing Clinician Start: 09-23-2024 Dual energy X-ray absorptiometry Dr. Sonu Lane MD Start: 07-29-2023 Computed tomography of abdomen and pelvis with contrast Dr. Sonu Lane Work Phone: Start: 07-17-[address] Sonu maradiaga Work Phone: Start: 01-30-[address] Sonu Lane Work Phone: Start: 12-19-[address] Sonu beckett Work Phone: Start: 12-19-[address] Sonu bill Work Phone: Start: 11-12-2022 Computed tomography of abdomen and pelvis with intravenous contrast Dr. Sonu Lane Work Phone: Start: 11-20-2021 End: 11-20-2021 Screening digital breast tomosynthesis bi Pooja Edwards MD Work Phone: Start: 11-20-2021 Dxa bone density study 1/> sites axial skel Pooja Edwards MD Work Phone: Cyst of breast (disorder) AM EMRE EDWARDS MD Cyst of left ovary (disorder) POOJA EDWARDS MD H/O: surgery Hx of ovarian cystectomy Dr. Sonu Lane Work Phone: Ligation of fallopian tube A CHERRY EDWARDS MD Plan of Treatment Date Care Activity Detail Author Start: 07-28-2024 Medicare Advantage Annual Wellness Visit Medicare Advantage Annual Wellness Visit [facility] Start: 03-28-2024 COVID-19 Vaccine () COVID-19 Vaccine () [facility] Start: 03-28-2024 Influenza vaccination Influenza Vacc ine (#1) [facility] Start: 11-21-2023 Screening for osteoporosis Bone Density Scan [facility] Start: 07-31-2023 Lipid panel Lipids [facility] Start: 07-28-2023 Medicare Advantage Annual Wellness Visit Medicare Advantage Annual Wellness Visit [facility] Start: 03-28-2023 Influenza vaccination Influenza Vacc ine (#1) [facility] Start: 02-19-2023 Procedure [facility] Start: 01-30-2023 Colonoscopy w/biopsy single/multiple COLONOSCOPY AND BIOPSY [facility] Start: 01-30-2023 Colsc flx w/rmvl of tumor polyp lesion snare tq COLONOSCOPY W/LESION REMOVAL [facility] Start: 01-30-2023 Egd transoral biopsy single/multiple EGD BIOPSY SINGLE/MULTIPLE [facility] Start: 01-30-2023 Patient discharge [facility] Start: 11-20-2022 Screening for malign ant neoplasm of breast Mammogram [facility] Start: 11-20-2022 Screening for osteoporosis Bone Density Scan [facility] Start: 07-06-2022 DTaP/Tdap/Td Vaccine s (1 - Tdap) DTaP/Tdap/Td Vaccines (1 - Tdap) [facility] Start: 06-17-2022 End: 06-17-2023 US Abdomen US abdomen complete Imaging Routine Unspecified abdominal pain Expected: 06/17/2022, Expires: 06/17/2023 [facility] Work Phone: Comment on above: Expected: 06/17/2022 , Expires: 06/17/2023 Start: 03-28-2022 Influenza vaccination S [facility] Start: 11-22-2021 Subsequent hospital visit by physician 11/22/2021 Hospital Encounter Radiology Pooja Edwards MD [address] [facility] [address] Start: 09-03-2020 Screening for malign ant neoplasm of breast Breast cancer screen [facility] Start: 2016 RSV Immunization age d 60 or older (1 - 1-dose 60+ series) RSV Immunization aged 60 or older (1 - 1-dose 60+ series) [facility] Start: 2016 RSV Immunization for Adults (1 - Risk 60-74 years 1-dose series) RSV Immunization for Adults (1 - Risk 60-74 years 1-dose series) [facility] Start: 2006 Shingles Vaccine (1 of 2) Shingles Vaccine (1 of 2) [facility] Start: 2006 Zoster Vaccines (1 of 2) Zoste r Vaccines (1 of 2) [facility] Start: 2001 Screening for malign ant neoplasm of colon [facility] Start: 1986 Screening for malign ant neoplasm of cervix [facility] Start: 1977 Screening for malign ant neoplasm of cervix Pap smear [facility] Start: 1975 DTaP/Tdap/Td vaccine (1 - Tdap) DTaP/Tdap/Td vaccine (1 - Tdap) [facility] Start: 1975 DTaP/Tdap/Td Vaccine s (1 - Tdap) DTaP/Tdap/Td Vaccines (1 - Tdap) [facility] Start: 1975 Pneumococcal Vaccine : 50+ Years (1 of 2 - PCV) Pneumococcal Vaccine: 50+ Years (1 of 2 - PCV) [facility] Start: 1974 Hepatitis C screening S [facility] Start: 1971 HIV screening HIV screen [facility] Start: 1968 Depression Screen Depression Screen [facility] Start: 1968 Depression Screening Depression Scre ening [facility] Start: 1962 Pneumococcal 65+ yea rs Vaccine (1 - PCV) Pneumococcal 65+ years Vaccine (1 - PCV) [facility] Start: 1962 Pneumococcal Vaccine : 65+ Years (1 - PCV) Pneumococcal Vaccine: 65+ Years (1 - PCV) [facility] Start: 1962 Pneumococcal Vaccine : 65+ Years (1 of 2 - PCV) Pneumococcal Vaccine: 65+ Years (1 of 2 - PCV) [facility] Start: 1961 COVID-19 Vaccine (1) COVID-19 Vaccin e (1) [facility] Start: 1956 COVID-19 Vaccine (#1) COVID-19 Vacci ne (#1) [facility] Start: 1956 Hepatitis B Vaccines (1 of 3 - 3-dose series) Hepatitis B Vaccines (1 of 3 - 3-dose series) [facility] Start: 1956 Lipid panel Lipid Panel [facility] Start: 1956 Screening for malign ant neoplasm of colon [facility] Patient Education ED Abdominal P ain Unkn Cause Fem ED Vomiting (Adult) [facility] Work Phone: Patient referral [facility] Work Phone: Procedure [facility] Payers Date Payer Category Payer Medicare [id number] 2023 Self-pay [id number] 2023 Private Health Insurance [facility] [id number] 2021 Medicare AETNA MEDICARE A DVANTAGE AETNA MEDICARE [id number] 2021-Present [facility] [id number] [place] [phone] Medicare O [id number] 2021 Medicare O [employer] MEDICARE [id number] Medicare [facility] MEDIC[facility] [id number] 200 [id number] Unknown [facility] [id number] Unknown [id number] Unknown [id number] Unknown [id number] Unknown [id number] Unknown [id number] Unknown [id number] Unknown [id number] 462 Unknown [id number] Unknown [id number] Social History Date Type Detail Facility Start: 11-06-2021 Tobacco smoking status Heavy t obacco smoker (finding) [facility] Sex Assigned At Sex [facility] Start: 01-18-2016 [facility] Work Phone: Start: 1955 Sex Assigned At Not on file S [facility] Work Phone: Start: 1955 Sex Assigned At Female [facility] Start: 12-11-2022 End: 08-01-2023 Tobacco smoking status NHIS Unknown if ever smoked [facility] Start: 07-16-2022 History of Social function [facility] Start: 07-16-2022 Tobacco use panel [facility] Start: 06-14-2022 End: 2022 Exposure to SARS-CoV-2 (event) Not sure [facility] Start: 02-25-2022 End: 10-07-2024 Sex Female (finding) [facility] Start: 08-01-2023 Tobacco smoking stat us NHIS Current some day smoker [facility] Goals Date Patient Goal Desired Activity /State Mental Status Date Assessment Result Facility 01-30-2023 Cognitive function Level Of Cons ciousness Appropriate;Follows Commands;Drowsy;Lethargic [facility] Work Phone: 01-30-2023 Cognitive function Voice/Name [facility] Work Phone: Clinical Notes 11-06-2021 to 08-26-2024 Telephone Encounter - Tiffany Reyes RN - 08/26/2024 7:31 AM ESTTelephone Encounter - Tiffany Reyes RN - 08/26/2024 7:31 AM EST Note Date & Type Note Facility 08-26-2024 Telephone encounter Note Form atting of this note might be different from the original. S: Patient called the clinical access center with complaint of throat pain and white spots in the back of her throat B: throat pain started 1 week ago A: Pt complains of moderate pain. She said she can eat and drink and completely open her mouth. She denies shortness of breath or fever. She had a negative covid test yesterday. She was exposed to someone on Friday who tested Covid positive yesterday. R: Appt today at [address] Berger. Pt advised to wear mask to appt. Pt advised to bring photo ID, insurance card, medications with them to their visit if possible. Home care advise given to patient: SOFT DIET: * Eat a soft diet. * Cold drinks, popsicles, and milkshakes often work well. * Avoid citrus fruits and spicy foods. Covid questions: 1) Do you have symptoms consistent with COVID-sore throat 2) Have you tested positive for COVID in last 10 days-no 3) Have you been exposed to Covid in the last 10 days that you are aware of -yes Reason for Disposition Pus on tonsils (back of throat) and swollen neck lymph nodes ('glands') Protocols used: Sore [id number] [facility] 08-26-2024 Miscellaneous Notes Formattin g of this note might be different from the original. S: Patient called the clinical access center with complaint of throat pain and white spots in the back of her throat B: throat pain started 1 week ago A: Pt complains of moderate pain. She said she can eat and drink and completely open her mouth. She denies shortness of breath or fever. She had a negative covid test yesterday. She was exposed to someone on Friday who tested Covid positive yesterday. R: Appt today at [address] Berger. Pt advised to wear mask to appt. Pt advised to bring photo ID, insurance card, medications with them to their visit if possible. Home care advise given to patient: SOFT DIET: * Eat a soft diet. * Cold drinks, popsicles, and milkshakes often work well. * Avoid citrus fruits and spicy foods. Covid questions: 1) Do you have symptoms consistent with COVID-sore throat 2) Have you tested positive for COVID in last 10 days-no 3) Have you been exposed to Covid in the last 10 days that you are aware of -yes Reason for Disposition Pus on tonsils (back of throat) and swollen neck lymph nodes ('glands') Protocols used: Sore [id number] documented in this encounter [facility] 08-10-2024 Evaluation note Diagnosis Onset Date Resolution Diarrhea acute August 10, 2024 10:03am Marijuana use chronic July 10:03am Unexplained weight loss chronic J anuary 2024 10:03am Upper abdominal pain chronic Fabricio susanna 2024 10:03am [facility] Work Phone: 1(655) 854-108007-06-2023 [facility] Procedure [facility]07-06-2023 Procedure note [facility]07-06-2023 Procedure [facility] 11-08-2021 Note. MICRO - Microbiology PROCEDURE: Urine Culture [*1] SOURCE: Urine BODY SITE: COLLECTED DATE/TIME: 11/06/2021 12:29 EDT RECEIVED DATE/TIME: 11/06/2021 20:22 EDT START DATE/TIME: 11/06/2021 20:22 EDT FREE TEXT SOURCE: FINAL REPORTS Final Report [] Verified Date/Time/Personnel: 11/08/2021 08:03 EDT No growth at 48 hours. PRELIMINARY REPORTS Preliminary Report [] Verified Date/Time/Personnel: 11/07/2021 11:39 EDT No growth to date Performing Locations *1: This test was performed at: [address], [address] , [facility] ([place])11-08-2021 Note. MICRO - Microbiology PROCEDURE: Urine Culture [*1] SOURCE: Urine BODY SITE: COLLECTED DATE/TIME: 11/06/2021 12:29 EDT RECEIVED DATE/TIME: 11/06/2021 20:22 EDT START DATE/TIME: 11/06/2021 20:22 EDT FREE TEXT SOURCE: FINAL REPORTS Final Report [] Verified Date/Time/Personnel: 11/08/2021 08:03 EDT No growth at 48 hours. PRELIMINARY REPORTS Preliminary Report [] Verified Date/Time/Personnel: 11/07/2021 11:39 EDT No growth to date Performing Locations *1: This test was performed at: [address], [address] , [facility] ([place])11-06-2021 Evaluation + Plan note Diagnostic Tests Pending * Urine Culture 11/06/21 Future Scheduled Tests Laboratory* Pathology Report Programmer Request 11/06/21 Radiology* CT Low Dose Lung Cancer Screening (LDCT) 11/06/21 * MA Mammo Screening Bilateral w/ Jesus 11/06/21 * BD Bone Density DEXA Axial Skeleton 11/06/21 [facility] 04-12-2022 Evaluation + Plan note Future Scheduled Tests Radiology* CT Low Dose Lung Cancer Screening (LDCT) 11/06/21 * MA Mammo Screening Bilateral w/ Jesus 11/06/21 * BD Bone Density DEXA Axial Skeleton 11/06/21 [facility] Evaluation noteNo assessment information available [facility] Work Phone: Evaluation note* Diagnosis Onset Date Resolution Status Diarrhea acute 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 Upper abdominal pain chronic [facility] Work Phone: Evaluation note* Diagnosis Onset Date Resolution Status Diarrhea acute 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 Upper abdominal pain chronic Diarrhea acute 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 Upper abdominal pain chronic [facility] Work Phone: Evaluation note* Diagnosis Onset Date Resolution Status Diarrhea acute Marijuana use chronic 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 Upper abdominal pain chronic [facility] Work Phone: Evaluation note* Diagnosis Angioneurotic edema, subsequent encounter- Primary Unspecified abdominal pain [facility] Unspecified abdominal pain- Primary [facility] Author Levi Mercado [facility] January 30, 2023 7:38am Note Date/Time January 30, 2023 7:38a m [facility] Medical Records Department [address] [place] [id number] History & Physical Exam 01/30/23 0737 MR#: [id number] Acct: [id number] Name: CLARIBEL FIELDS Rep #:[id number] : 1955 67 From: Levi Mercado DO PCP: Dr. Sonu Lane MD Status:[facility] Location: [place] [address] History and Physical Date of Admission: 01/30/23 abdominal pain Details: CLARIBEL FIELDS, is a 67 F who presents to the office today for sporadic episodes of upper abdominal/periumbilical pain since 2002. Has occurred twice this year. Can last a few hours or a day. Most recent episode was 11/12/22, brought by [facility] ED. Lipase was normal, bili 1.10 otherwise unremarkable CMP, CBC unremarkable, CT showed tiny gallstones. Can have associated nausea and vomiting, pain doesn't radiate. Has been to ED several times over the years. Canbe better with heating pad. Intermittent urgent diarrhea, not assoc with the abd pain, thinks once or twice this year. Diarrhea lasted for a month in 04/2022. Currently having soft stools.No melena or hematochezia. Hasn't taken pantoprazole since ED visit, no heartburn. Has only taken ibuprofen twice since then. Can have difficulty swallowing certain foods, especially apples, melon, carrots. Unexplained weight loss over the past 4 yrs, BMI is now 16.5. She attributes the weight loss to several things: decreased sense of taste and smell, poor dentition so she had teeth pulled and had to get used to dentures, and her is approx 400 lbs so she wonders if psychologically this has caused her to eat less as he eats more. No prior EGD that she recalls Hx colon polyps, last colonoscopy approx 202011/12/22 CT/Abdomen/Pelvis W IV Cont ONLY IMPRESSION: Questionable tiny gallstones along the dependent portion of the gallbladder lumen. Small cyst is seen in the posterior superior aspect of the spleen. Levoscoliosis of the thoracic spine and dextroscoliosis of the lumbar spine. ROS Const Constitutional: Positive for headache(s) and weight change; No fatigue ENT ENT: Positive for headache(s); No difficulty swallowing Gastro GI: No abdominal pain, belching, bloating, change in bowel habits, change in stool character, coffee ground emesis, constipation, cramping, diarrhea, heartburn, difficulty swallowing, feeling full early, excessive flatus, incontinent of stools, Vomiting blood/hematemesis, Blood in stool, loose stools,Black,tarry stools, nausea/dyspepsia, pain with swallowing, vomiting or other Musc Musculoskeletal: Positive for back pain; No joint pain Skin Skin: No yellowing of the eye or itchy eyes Neuro Neurology: Positive for headache(s) Psych Psychiatric: No anxiety and No depression Endo Endocrine: Positive for weight change; No fatigue Aller/Imm Allergy/Immunologic: No itchy eyes Cody/Lymp Hematologic/Lymphatic: No easy bleeding or easy bruising Exam Const General: cooperative and comfortable Nutritional Appearance: thin Orientation: alert, awake and oriented x3 HENMT Head: normal to inspection Eyes Sclera: sclerae normal Resp Effort & Inspection: normal respiratory effort GI Inspection: normal to inspection Palpation: soft, no hepatosplenomegaly, no masses and tender in the epigastrum and in the LUQ General: bladder normal to palpation Bimanual Exam- Vagina & Uterus: bladder normal to palpation Skin General: no rashes or lesions noted Neuro Speech: speech normal Gait: normal gait Psych Mood: euthymic mood Quality Reporting [facility] Screening ([facility]) Smoking Status: Unknown if ever smoked Assessment and Plan Assessment and Plan (1) Upper abdominal pain: Status: Chronic Plan: 67 yr old female with 20-yr-hx of episodes of upper abd/periumbilical pain, assoc w/ nausea and vomiting. She has unrelated occas diarrhea, not frequent. Aswell as unexplained weight loss, now underweight. Slightly elevated bilirubin--may be Gilbert's--during last episode but normal liver enzymes and lipase. CT showed possible tiny gallstones. DDx includes transient obstructive choledocholithiasis, biliary dyskinesia, pancreatitis, SOD Labs today RUQ US, may need HIDA EGD w/ office f/u 2 wks later (2) Unexplained weight loss: Status: Chronic Plan: as above (3) Diarrhea: Status: Acute Plan: as above Orders: Orders Bilirubin, Direct Today R10.10 - Upper abdominal pain, unspecified, R19.7 - Diarrhea, unspecified, R63.4 - Abnormal weight loss Comprehensive Metabolic Profil Today R10.10 - Upper abdominal pain, unspecified,R19.7 - Diarrhea, unspecified, R63.4 - Abnormal weight loss CRP Today R10.10 - Upper abdominal pain, unspecified, R19.7 - Diarrhea, unspecified, R63.4 - Abnormal weight loss Erythrocyte Sed Rate Today R10.10 - Upper abdominal pain, unspecified, R19.7 - Diarrhea, unspecified, R63.4 - Abnormal weight loss Anti-Mitochondrial AB Today R10.10 - Upper abdominal pain, unspecified, R19.7 - Diarrhea, unspecified, R63.4 - Abnormal weight loss Anti-Smooth Muscle ABS Today R10.10 - Upper abdominal pain, unspecified, R19.7 -Diarrhea, unspecified, R63.4 - Abnormal weight loss CBC W/Diff, Automated Today R10.10 - Upper abdominal pain, unspecified, R19.7 - Diarrhea, unspecified, R63.4 - Abnormal weight loss LDH Today R10.10 - Upper abdominal pain, unspecified, R19.7 - Diarrhea, unspecified, R63.4 - Abnormal weight loss MILLIE Comprehensive Panel Today R10.10 - Upper abdominal pain, unspecified, R19.7 - Diarrhea, unspecified, R63.4 - Abnormal weight loss ANCA Today R10.10 - Upper abdominal pain, unspecified, R19.7 - Diarrhea, unspecified, R63.4 - Abnormal weight loss Celiac Disease Profile Today R10.10 - Upper abdominal pain, unspecified, R19.7 -Diarrhea, unspecified, R63.4 - Abnormal weight loss Abdomen Limited Today R10.10 - Upper abdominal pain, unspecified, R19.7 - Diarrhea, unspecified, R63.4 - Abnormal weight loss Thyroid Stim Hormone (TSH) Today R10.10 - Upper abdominal pain, unspecified, R19.7 - Diarrhea, unspecified, R63.4 - Abnormal weight loss I have examined the patient and the H&P has been reviewed. There are no clinicalchanges since date of exam. 01/30/23 0738 <Electronically signed by Levi Mercado DO> Cosigner Signature (if applicable): CC: Dr. Sonu Lane MD; Levi Mercado DO~ Signed [facility] Work Phone: Hospital course Narrative No data available for this section [facility] Discharge instructions No data available for this section [facility] Progress note No data available for this section [facility] Reason for referral (narrative)No reason for referral information [facility] Work Phone: Summary Purpose Family History No Family History Records FoundNo Family History Records FoundNo Family History Records FoundNo Family History Records FoundNo Family History Records FoundNo Family History Records Found Advance Directives No Advanced Directives Records FoundDocuments on File Type Date Recorded 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 ACP-Advance Directive ACP-Power of Home Health Care Provider Advance Directive Response Recorded Date/ Time Living Will No November 12, 2022 1:03pm Power of Home Health Care Provider No November 12 1:03pm Advance Directive Response Recorded Date/ Time Living Will No January 24, 2023 10:43am Power of Home Health Care Provider No January 24 10:43am Advance Directive Response Recorded Date/ Time Living Will No August 01 11:34am Power of Home Health Care Provider No August 01 11:34am Advance Directive Response Recorded Date/ Time Living Will No August 01 12:34pm Power of Home Health Care Provider No August 01 12:34pm Chief Complaint and Reason for Visit Chief Complaint abd pain ER FU E-ORDER RUQ Reason for Visit Diarrhea Unexplained weight loss Upper abdominal pain Chief Complaint abd pain ER FU E-ORDER RUQ E-ORDER Reason for Visit Diarrhea Unexplained weight loss Upper abdominal pain Chief Complaint abd pain ER FU E-ORDER RUQ E-ORDER 2 WK FU E-ORDER Reason for Visit Diarrhea Unexplained weight loss Upper abdominal pain Diarrhea Unexplained weight loss Upper abdominal pain Chief Complaint E-ORDER 2 WK FU E-ORDER Reason for Visit Diarrhea Unexplained weight loss Upper abdominal pain Chief Complaint SCREENING Abnormal weight loss 5 M FU Reason for Visit Diarrhea Marijuana use Unexplained weight loss Upper abdominal pain Chief Complaint Admit Date 3 M FU August 10, 2024 1 0:03am PAIN- COPY PCP August 25, 2024 1 1:41am SCREEN FOR OSTEOPOROSIS September 23 8:07am Reason for Visit Admit Date Diarrhea August 10, 2024 1 0:03am Marijuana use August 10, 2024 1 0:03am Unexplained weight loss August 10 10:03am Upper abdominal pain August 10, 2024 10:03am Additional Source Comments INFORMATION SOURCE (unrecogn ized section and content) DATE CREATED AUTHOR 09/15/2018 [facility] DATE CREATED AUTHOR AUTHOR'S ORGANIZ ATION 11/17/2021 [facility] ([place] DATE CREATED AUTHOR AUTHOR'S ORGANIZ ATION 12/01/2021 [facility] DATE CREATED AUTHOR AUTHOR'S ORGANIZ ATION 01/07/2022 [facility] DATE CREATED AUTHOR AUTHOR'S ORGANIZ ATION 08/28/2024 [facility] DATE CREATED AUTHOR AUTHOR'S ORGANIZ ATION 11/18/2024 [facility] Care Team (unrecognized sect ion and content) Team Status: Active Member Role Status Dates Dr. Sonu Lane MD Primary Care Provider Active Team Status: Inactive Member Role Status Dates Dr. Sonu Lane MD Primary Care Provider, Referr ing Provider Active Dr. Levi Mercado DO Attending Provider Active Team Status: Inactive Member Role Status Dates Dr. Sonu Lane MD Primary Care Provider Active Dr. Alisha Piña MD Attending Provider, Referring Provider Active Team Status: Inactive Member Role Status Dates Dr. Sonu Lane MD Primary Care Pr ovider, Attending Provider, Referring Provider Active Team Status: Inactive Member Role Status Dates Dr. Sonu Lane MD Primary Care Provider Active Dr. Levi Mercado DO Attending Provider, Referring Provider Active Team Status: Active Member Role Status Dates Dr. Sonu Lane MD Primary Care Provider, Referr ing Provider Active Dr. Levi Mercado DO Attending Provider, Other Prov ider Active Information Coder Relationship Specialty Start Date [place] [address] PCP - General 12/28/14 Team Status: Inactive Member Role Status Dates Dr. Sonu Lane MD Primary Care Provider, Referr ing Provider Active Helen Jeff [employer] Attending Provider Active Team Status: Inactive Member Role Status Dates Pradip Tobar MD Attending Provider, Emergency Provid er Active Dr. Sonu Lane MD Primary Care Provider Active Team Status: Inactive Member Role Status Dates Dr. Sonu Lane MD Primary Care Provider Active Helen Jeff [employer] Attending Provider, Referrin g Provider Active Information Coder Relationship Specialty Start Date End Date Sonu Lane MD [address] [place] [address] PCP - General 12/28/14 Information Coder Relationship Specialty Start Date End Date Sonu Lane MD [address] [place] [id number] PCP - General 12/28/14 Information Coder Relationship Specialty Start Date End Date Sonu Lane MD [address] [place] [id number] PCP - General 12/28/14 Team Status: Inactive Member Role Status Dates Dr. Sonu Lane MD Primary Care Provider Active Start: August 10, 2024 End: August 10, 20[address] Dr[address] MD Referring Provider Active Start: August 10, 2024 End: August 10, 2024 Dr. Levi Mercado DO Attending Provider Active Start: August 10, 2024 End: August 10, 2024 Team Status: Inactive Member Role Status Dates Dr. Sonu Lane MD Primary Care Provider Active Start: August 25, 2024 End: August 25, 2024 Dr. Alisha Piña MD Attending Provider Active Start: August 25, 2024 End: August 25, 2024 Dr. Alisha Piña MD Referring Provider Active Start: August 25, 2024 End: August 25, 2024 Team Status: Inactive Member Role Status Dates Dr. Sonu Lane MD Primary Care Provider Active Start: September 23, 2024 End: September 23, 20[address] Dr. [address] MD Attending Provider Active Start: September 23, 2024 End: September 23, 20[address] Dr. [address] MD Referring Provider Active Start: September 23, 2024 End: September 23, 2024 Goals (unrecognized section and content) Goals may be documented in a n alternate section Reason for Visit (unrecogniz ed section and content) Reason Onset Date Comments Sore Throat 08/26/2024 FOR RECORDS PERTAINING TO PATIENTS WHO ARE OR HAVE BEEN ENROLLED IN A CHEMICAL DEPENDENCY/SUBSTANCEABUSE PROGRAM, SOME INFORMATION MAY BE OMITTED. This clinical summary was aggregated from multiple sources. Caution should be exercised in using it in the provision of clinical care. This summary normalizes information from multiple sources, and as a consequence, information in this document may materially change the coding, format and clinical context of patient data. In addition, data may be omitted in some cases. CLINICAL DECISIONS SHOULD BE BASED ON THE PRIMARY CLINICAL RECORDS. [facility] provides no warranty or guarantee of the accuracy or completeness of information in this document.
[2025-03-26 08:42] LABS: Anion Gap 10 (5-15); BUN 23 mg/dL (4-19); BUN/Creat Ratio 30.0 RATIO (10-20); Calcium,Total 9.7 mg/dL (7.6-11.0); Carbon Dioxide 26.1 mmol/L (21.0-32.0); Chloride 103 mmol/L (98-108); Cholesterol 165 mg/dL (<=200); Glucose 97 mg/dL (70-99); Low Density Lipoprotein Calc. 73 mg/dL; Potassium 4.5 mmol/L (3.3-5.1); Triglycerides 90 mg/dL; Very Low Density Lipoprotein 18 mg/dL (5-40); cholesterol:hdl ratio screen 2.22
== END | disposition home or self-care (01) ==
LOC: LAB 07:31
PROVIDERS: PCP Family Medicine; Referring Provider Family Medicine; Visit Provider Family Medicine
DX: Z00.00 Encounter for general adult medical examination without abnormal findings (principal)
CPT/HCPCS: 36415; 80048; 80061

== ENCOUNTER → 2025-04-29 | Outpatient (CLI) | payer MEDICARE, SELFPAY ==
[2025-04-29 19:37] LABS: AST(SGOT) 27 U/L (<=31); Alanine Aminotransfer ALT/SGPT 15 U/L (<=34); Albumin, Serum 4.4 g/dL (3.4-4.8); Alkaline Phosphatase 66 U/L (35-104); Anion Gap 14 (5-15); BUN 27 mg/dL (4-19); BUN/Creat Ratio 32.0 RATIO (10-20); Calcium,Total 9.5 mg/dL (7.6-11.0); Carbon Dioxide 22.7 mmol/L (21.0-32.0); Chloride 104 mmol/L (98-108); Globulin 2.4 g/dL (2.2-4.2); Glucose 75 mg/dL (70-99); Potassium 4.2 mmol/L (3.3-5.1)
[2025-04-29 19:41] LABS: CRP < 3.00 mg/L (0.0-3.0)
[2025-04-29 19:59] LABS: Hematocrit 38.6 % (37-47); Hemoglobin 13.1 g/dL (12.0-15.0); Immature Granulocytes Count 0.020 X10^3/uL (0.0-0.0); Mean Corp Hgb Conc 33.9 g/dL (32-36); Mean Corpuscular Volume 97.2 fL (81-99); Mean Platelet Vol. 10.5 fl (6.2-12.0); NRBC Flagged by Analyzer 0 % (0-5); Platelet Count 185 K/mm3 (150-450); RBC Distribution Width CV 13.3 % (11.6-14.6); RBC Distribution Width SD 47.9 fl (35.1-43.9); Red Blood Count 3.97 M/mm3 (4.2-5.4); White Blood Count 5.6 K/mm3 (4.4-11.0)
== END | disposition home or self-care (01) ==
LOC: MTLAB 16:45
PROVIDERS: PCP Family Medicine; Referring Provider Internal Medicine Rheumatology; Visit Provider Internal Medicine Rheumatology
DX: M19.041 Primary osteoarthritis, right hand (principal); M47.897 Other spondylosis, lumbosacral region; R76.89 Other specified abnormal immunological findings in serum
CPT/HCPCS: 36415; 80053; 85025; 85652; 86140